=== PATIENT | male | born 1955 | race Caucasian/White ===

== ENCOUNTER 2017-08-19 20:09 | Emergency (ER) | payer OTHER ==
[~2017-08-19] VITALS: Ht 172.7 cm; Wt 105.8 kg
[~2017-08-19 20:09] MED LIST: CIPR-255 PO
[2017-08-19 20:14] VITALS: TEMP 36.9; Ht 172.7 cm; Wt 105.8 kg
[2017-08-19] MEDS ORDERED: CIPROFLOXACIN 500 MG TAB PO STA (20:29)
[2017-08-19] MEDS ORDERED: METRONIDAZOLE 250 MG TAB PO STA (20:29)
[2017-08-19 20:39] LABS: BASO % 0.5 %; BASO ABS # 0.06 K/uL (0-0.2); EOS % 1.7 %; HEMATOCRIT 45.7 % (42-52); HEMOGLOBIN 15.8 g/dL (14.0-18.0); IG# 0.08 K/uL (0.00-0.02); LYMPH % 18.1 %; LYMPH ABS # 2.17 K/uL (1.2-3.4); MEAN CELL VOLUME 88.6 fL (80-100); MEAN CORPUSCULAR HEMOGLOBIN 30.6 pg (25-34); MEAN CORPUSCULAR HGB CONC 34.6 g/dl (32-36); MEAN PLATELET VOLUME 9.6 fL (7.4-10.4); MONO % 8.4 %; MONO ABS # 1.01 K/uL (0.11-0.59); NEUT % 70.6 %; NEUT ABS # 8.46 K/uL (1.4-6.5); PLATELET COUNT 203 K/uL (130-400); RED CELL DISTRIBUTION WIDTH CV 13.1 % (11.5-14.5); WHITE BLOOD COUNT 11.98 K/uL (4.8-10.8)
[2017-08-19] MEDS ORDERED: CIPROFLOXACIN 500MG HOME PACK PO ONE (20:45)
--- NOTE | 2017-08-19 20:47 | EMERGENCY ROOM VISIT NOTE ---
History Report prepared by Kaiden: Crystal Slade Under the Supervision of: Dr. Jimmy Rodriguez M.D. First contact with patient: 20:23 Chief Complaint: ABDOMINAL PAIN Stated Complaint: DIVERTICULITIS History of Present Illness The patient is a 62 year old male who presents to the Emergency Room with complaints of worsening abdominal pain that began last night. The patient reports that he has diverticulitis and he ate corn. He is currently taking Cipro and Flagyl. Source of History: patient Onset: last night Position: abdomen Timing: worsening Review of Systems See HPI for pertinent positives & negatives. A total of 10 systems reviewed and were otherwise negative. Past Medical & Surgical Medical Problems: (1) Diverticulitis (2) Hypertension Family History Diabetes mellitus Social History Smoking Status: Never Smoker Alcohol Use: occasionally Marital Status: Housing Status: lives with family Occupation Status: retired Current/Historical Medications Scheduled Aspirin (Aspirin Ec), 81 MG PO QPM Atorvastatin (Lipitor), 10 MG PO Q2D Ciprofloxacin Hcl (Cipro), 1 TAB PO BID Docusate Sodium (Colace), 1 CAP PO BID Enalapril Maleate (Enalapril Maleate), 20 MG PO QPM Hydrochlorothiazide (Hydrochlorothiazide), 12.5 MG PO QPM Metronidazole (Flagyl), 500 MG PO TID Sennosides (Senokot), 8.6 MG PO HS Scheduled PRN Lorazepam (Ativan), 0.5 MG PO TID PRN for Anxiety Allergies Coded Allergies: No Known Allergies (Verified , 05/09/16) Physical Exam Vital Signs Date Time Temp Pulse Resp B/P (MAP) Pulse Ox O2 Delivery O2 Flow Rate FiO2 08/19/17 20:56 77 16 134/78 98 08/19/17 20:14 36.9 103 18 151/87 94 Room Air Physical Exam GENERAL: Patient is a healthy-appearing well-nourished male HEAD: Normocephalic atraumatic EYES: Ocular movements intact pupils equal and react to light OROPHARYNX mucous membranes are moist no exudates present no erythema or edema present NECK: Supple no nuchal rigidity CHEST: Good equal expansion LUNGS: Clear and equal to auscultation CARDIAC: Normal S1 and S2 ABDOMEN: No guarding. Minimally tender LLQ BACK: No CVA tenderness EXTREMITIES: No pain upon palpation normal muscle strength in all groups no clubbing cyanosis or edema NEURO: Patient is following commands and answering questions appropriately. Alert and oriented x3 Cranial Nerves 2-12 grossly intact Medical Decision & Procedures Laboratory Results 08/19/17 20:30 Red Blood Count 5.16, Mean Corpuscular Volume 88.6, Mean Corpuscular Hemoglobin 30.6, Mean Corpuscular Hemoglobin Concent 34.6, Mean Platelet Volume 9.6, Neutrophils (%) (Auto) 70.6, Lymphocytes (%) (Auto) 18.1, Monocytes (%) (Auto) 8.4, Eosinophils (%) (Auto) 1.7, Basophils (%) (Auto) 0.5, Neutrophils # (Auto) 8.46, Lymphocytes # (Auto) 2.17, Monocytes # (Auto) 1.01, Eosinophils # (Auto) 0.20, Basophils # (Auto) 0.06 08/19/17 20:30 Test 08/19/17 20:30 White Blood Count 11.98 K/uL (4.8-10.8) Red Blood Count 5.16 M/uL (4.7-6.1) Hemoglobin 15.8 g/dL (14.0-18.0) Hematocrit 45.7 % (42-52) Mean Corpuscular Volume 88.6 fL (80-100) Mean Corpuscular Hemoglobin 30.6 pg (25-34) Mean Corpuscular Hemoglobin Concent 34.6 g/dl (32-36) Platelet Count 203 K/uL (130-400) Mean Platelet Volume 9.6 fL (7.4-10.4) Neutrophils (%) (Auto) 70.6 % Lymphocytes (%) (Auto) 18.1 % Monocytes (%) (Auto) 8.4 % Eosinophils (%) (Auto) 1.7 % Basophils (%) (Auto) 0.5 % Neutrophils # (Auto) 8.46 K/uL (1.4-6.5) Lymphocytes # (Auto) 2.17 K/uL (1.2-3.4) Monocytes # (Auto) 1.01 K/uL (0.11-0.59) Eosinophils # (Auto) 0.20 K/uL (0-0.5) Basophils # (Auto) 0.06 K/uL (0-0.2) RDW Standard Deviation 42.0 fL (36.4-46.3) RDW Coefficient of Variation 13.1 % (11.5-14.5) Immature Granulocyte % (Auto) 0.7 % Immature Granulocyte # (Auto) 0.08 K/uL (0.00-0.02) Urine Color YELLOW Urine Appearance CLEAR (CLEAR) Urine pH 5.0 (4.5-7.5) Urine Specific [place] 1.021 (1.000-1.030) Urine Protein NEG (NEG) Urine Glucose (UA) NEG (NEG) Urine Ketones NEG (NEG) Urine Occult Blood TRACE (NEG) Urine Nitrite NEG (NEG) Urine Bilirubin NEG (NEG) Urine Urobilinogen NEG (NEG) Urine Leukocyte Esterase NEG (NEG) Urine WBC (Auto) 0 /hpf (0-5) Urine RBC (Auto) 0-4 /hpf (0-4) Urine Hyaline Casts (Auto) 0 /lpf (0-5) Urine Epithelial Cells (Auto) 0-5 /lpf (0-5) Urine Bacteria (Auto) NEG (NEG) Anion Gap 9.0 mmol/L (3-11) Est Creatinine Clear Calc Drug Dose 75.0 ml/min Estimated GFR () 73.7 Estimated GFR (Non- 63.6 BUN/Creatinine Ratio 12.4 (10-20) Calcium Level 9.1 mg/dl (8.5-10.1) Total Bilirubin 1.1 mg/dl (0.2-1) Direct Bilirubin 0.2 mg/dl (0-0.2) Aspartate Amino Transf (AST/SGOT) 33 U/L (15-37) Alanine Aminotransferase (ALT/SGPT) 76 U/L (12-78) Alkaline Phosphatase 58 U/L (45-117) Total Protein 7.3 gm/dl (6.4-8.2) Albumin 3.7 gm/dl (3.4-5.0) Lipase 212 U/L (73-393) Labs reviewed by ED physician. Medications Administered Medications (Trade) Dose Ordered Sig/Myron Route Start Time Stop Time Status Last Admin Dose Admin Ciprofloxacin (Cipro Tab) 500 mg NOW STAT PO 08/19/17 20:29 08/19/17 20:31 DC 08/19/17 20:40 500 MG Metronidazole (Flagyl Tab) 500 mg NOW STAT PO 08/19/17 20:29 08/19/17 20:31 DC 08/19/17 20:40 500 MG Ciprofloxacin (Cipro 500MG Home Pack) 1 homepack UD ONCE PO 08/19/17 20:45 08/19/17 20:46 DC 08/19/17 20:53 1 HOMEPACK ED Course 2025: Past medical records reviewed. The patient was evaluated in room C7. A complete history and physical examination was performed. 2028: Flagyl Tab 500 mg PO Cipro Tab 500 mg PO 2044: Cipro 500MG Home Pack 1 homepack PO 2105: Upon reexamination the patient is content. I discussed results and treatment plan with the patient. He verbalizes agreement and understanding. The patient is ready for discharge. Medical Decision Differential diagnosis: Etiologies such as appendicitis, diverticulitis, PUD, biliary pathology, UTI, pancreatitis, obstruction, mesenteric ischemia, aortic pathology, infections, inflammatory bowel disease, renal colic, as well as others were entertained. This is a 62-year-old male who presents emergency department complaining of left lower quadrant abdominal pain. Patient has a history of diverticulitis. Serial abdominal examinations were performed on the patient in the emergency department and the patient only had mild abdominal tenderness. The patient reports that this is is not his worst case of diverticulitis however this is what he feels that it is. Using shared medical decision making the decision was made not to CAT scan this patient. He will return for a CAT scan of his pain is out of control or he is running out of control fevers. 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 The patient was in agreement with the treatment plan. Medication Reconcilliation Current Medication List: was personally reviewed by me Blood Pressure Screening Patient's blood pressure: Elevated blood pressure Blood pressure disposition: Referred to PCP Impression Primary Impression: Diverticulitis Scribe Attestation The scribe's documentation has been prepared under my direction and personally reviewed by me in its entirety. I confirm that the note above accurately reflects all work, treatment, procedures, and medical decision making performed by me. Departure Information Dispostion Home / Self-Care Prescriptions Docusate Sodium (COLACE) 100 Mg Cap 1 CAP PO BID for 30 Days, #60 CAP Prov: Jimmy Rodriguez MD 08/19/17 Sennosides (SENOKOT) 8.6 Mg Tab 8.6 MG PO HS for 30 Days, #30 TAB Prov: Jimmy Rodriguez MD 08/19/17 Ciprofloxacin Hcl (CIPRO) 500 Mg Tab 1 TAB PO BID for 10 Days, #20 TAB Prov: Jimmy Rodriguez MD 08/19/17 Metronidazole (Flagyl) 500 Mg Tab 500 MG PO TID for 10 Days, #30 TAB Prov: Jimmy Rodriguez MD 08/19/17 Referrals No Doctor, Assigned (PCP) Forms Call Back Authorization, HOME CARE DOCUMENTATION FORM, IMPORTANT VISIT INFORMATION Patient Instructions My [facility] Additional Instructions You have been examined and treated today on an emergency basis only. This is not a substitute for, or an effort to provide, complete comprehensive medical care. It is impossible to recognize and treat all injuries or illnesses in a single emergency department visit. It is therefore important that you follow up closely with Dr Espinosa. Call as soon as possible for an appointment. Thank you for your time and consideration. I look forward to speaking with you again soon. Please don't hesitate to call us if you have any questions.
[2017-08-19] MEDS ORDERED: CIPR-255 PO (20:48)
[2017-08-19] MEDS ORDERED: METR-163 PO (20:48)
[2017-08-19] MEDS ORDERED: SENN1TAB77 PO (20:49)
[2017-08-19] MEDS ORDERED: DOCU-94 PO (20:49)
[2017-08-19 20:56] VITALS: BP 134/78; PULSE 77; O2SAT 98
[2017-08-19 21:05] LABS: ALBUMIN 3.7 gm/dl (3.4-5.0); CALCIUM 9.1 mg/dl (8.5-10.1); CREATININE 1.22 mg/dl (0.60-1.40); POTASSIUM 3.9 mmol/L (3.5-5.1)
[2017-08-19 21:08] LABS: TOTAL PROTEIN 7.3 gm/dl (6.4-8.2)
[2017-08-19] MEDS ORDERED: ENAL20TA PO (21:38)
[2017-08-19] MEDS ORDERED: ASPI81TA28 PO (21:44)
[2017-08-19] MEDS ORDERED: LORA-741 PO (21:44)
[2017-08-19] MEDS ORDERED: ATOR10TA82 PO (23:22)
[2017-08-19] MEDS ORDERED: HYDR12.55 PO (23:22)
== END 2017-08-19 20:57 | disposition home or self-care (01) ==
LOC: C.EDB 20:12 → C.EDC 20:57
DX: K57.92 Diverticulitis of intestine, part unspecified, without perforation or abscess without bleeding (principal); I10 Essential (primary) hypertension; Z83.3 Family history of diabetes mellitus; Z79.82 Long term (current) use of aspirin

== ENCOUNTER 2023-08-21 13:32 | Inpatient (IN) ==
--- NOTE | 2023-08-21 13:43 | ED Triage Note ---
Date of Service August 21, 2023 Provider in Triage Author: Alejandro Nuñez History of Present Illness This patient was briefly evaluated while in triage. An abbreviated physical exam was performed. This patient is a 68-year-old Male who presents to the ED for evaluation head cold last week, treated with antibiotic and predinsone continued congestion, weakness, weight loss, black stools no pain, no diarrhea Physical Exam GENERAL: NAD CARDIOVASCULAR: RRR RESPIRATORY: CTA ABDOMEN: BS x 4. Nontender to palpation. Initial orders for labs and / or imaging were placed and patient was placed in t he waiting area until a bed is available. Please see further documentation for the full ED course.
[2023-08-21 15:21] LABS: Basophils # (auto) 0.07 K/uL (0.00-0.20); Basophils % (auto) 0.5 %; Eosinophils # (auto) 0.06 K/uL (0.00-0.50); Eosinophils % (auto) 0.5 %; Hematocrit (blood only) 48.3 % (42.0-52.0); Hemoglobin 16.7 g/dl (14.0-18.0); Immature Granulocytes % (auto) 0.8 %; Lymphocytes # (auto) 1.71 K/uL (1.20-3.40); Mean Corpuscular Hemoglobin 28.8 pg (25.0-34.0); Mean Corpuscular Hgb Conc 34.6 g/dL (32.0-36.0); Mean Corpuscular Volume 83.3 fL (80.0-100.0); Mean Platelet Volume 10.6 fL (9.4-12.4); Monocytes % (auto) 6.1 %; Neutrophils # (auto) 10.41 K/uL (1.40-6.50); Neutrophils % (auto) 79.1 %; Platelet Count 253 K/uL (130-400); RDW Coefficient of Variation 12.5 % (11.5-14.5); RDW Standard Deviation 37.8 fL (36.4-46.3); White Blood Count 13.15 K/ul (4.8-10.8)
[2023-08-21 15:24] LABS: Appearance Urine Clear (Clear); Bilirubin Urine Negative (Negative); Blood Urine Negative (Negative); Color Urine Yellow; Glucose Urine UA 3+ (Negative); Ketones Urine Negative (Negative); Leukocyte Esterase Urine Negative (Negative); Nitrite Urine Negative (Negative); Protein Urine Negative (Negative); Specific Gravity Urine 1.033 (1.000-1.030); Urobilinogen Urine Negative (Negative)
[2023-08-21 15:46] LABS: Troponin I High Sensitivity 15.2 pg/ml (0-20)
[2023-08-21 15:48] LABS: Thyroid Stimulating Hormone 2.143 uIu/ml (0.300-4.500)
[2023-08-21 15:55] LABS: Albumin Level 4.2 gm/dl (3.4-5.0); Bilirubin,Total 1.9 mg/dl (0.2-1.0); Calcium 9.2 mg/dl (8.6-10.3); Creatinine Clr Calc Pharmacy 61.3 ml/min; Est GFR (African American) 63.7 ml/min; Est GFR (Non-African American) 54.9 ml/min; Potassium 4.3 mmol/L (3.5-5.1)
--- NOTE | 2023-08-21 16:09 | XRay Report ---
XR chest 1V not portable HISTORY: weakness COMPARISON: Chest 07/18/2014. FINDINGS: The lungs are clear. Cardiac silhouette is normal in size. No pleural effusions. No pneumot horax. IMPRESSION: No acute process. ACT 112: Negative or not required by law. Electronically signed by: Audi Severino M.D. 08/21/2023 4:08 PM
[2023-08-21] MEDS ORDERED: GLUCOSE 10 TAB/TUBE PO PRN (16:22)
[2023-08-21] MEDS ORDERED: GLUCOSE 40% GEL 15 GM TUBE PO PRN (16:22)
[2023-08-21] MEDS ORDERED: CARBOHYDRATES FOR HYPOGLYCEMIA PO PRN (16:22)
[2023-08-21] MEDS ORDERED: DEXTROSE 50% 50 ML SYRINGE IV PRN (16:22)
[2023-08-21] MEDS ORDERED: GLUCAGON FOR INJ 1 MG VIAL SQ PRN (16:22)
--- NOTE | 2023-08-21 16:28 | Emergency Department Note ---
Impression & Plan Acute hyperglycemia, Type 2 diabetes mellitus, Weakness, Acute hyponatremia ED Provider Note NAME: AMY CERNA AGE: 68 SEX: M : 1955 ARRIVES VIA: Walk-In INFORMANT: Patient ED PROVIDER(S): Keith Elliott DO CHIEF COMPLAINT: weak HPI: Patient is a 68-year-old male who presents to the ER with a past medical history of hypertension, hyperlipidemia on metformin for upper respiratory symptoms that initially started on Monday. On Monday started some steroids and amoxicillin. He notes since then he has been feeling very thirsty, weak rundown and lethargic. He denies any headache or change in vision. Does feel little unsteady. No chest pain or shortness of breath. No dysuria, urgency, or frequency. No other exacerbating or remitting factors. ADDITIONAL HISTORY OBTAINED: Per HPI Chronic Medical/Social Conditions Affecting Care: Per HPI PAST MEDICAL HISTORY:See Below PAST SURGICAL HISTORY:See Below FAMILY HISTORY:See Below SOCIAL HISTORY:See Below HOME MEDICATIONS:See Below ALLERGIES:See Below VITALS:See Below PHYSICAL EXAMINATION: GENERAL: Sitting up in bed, alert, well appearing, well nourished, no distress, non-toxic EYE EXAM: normal conjunctiva. PERRL and EOM's intact. OROPHARYNX: no exudate, no erythema, lips, buccal mucosa, and tongue normal and mucous membranes are moist NECK: supple, no nuchal rigidity, no adenopathy, non-tender LUNGS: Clear to auscultation. Normal chest wall mechanics HEART: no murmurs, S1 normal and S2 normal ABDOMEN: abdomen soft, non-tender, normo-active bowel sounds, no masses, no rebound or guarding. BACK: Back is symmetrical on inspection and there is no deformity, no midline tenderness, no CVA tenderness. SKIN: no rashes and no bruising UPPER EXTREMITIES: upper extremities are grossly normal. LOWER EXTREMITIES: No pitting edema. NEURO EXAM: Normal sensorium, cranial nerves II-XII intact, normal speech, no weakness of arms, no weakness of legs. MEDICAL DECISION MAKING: Patient is a 68-year-old male who presents the ER with above stated complaint. IV was established blood was obtained. Labs show mild leukocytosis of 13,000. No significant anemia. VBG with a pH of 7.45. BMP with a hyponatremia at 125 clearly secondary to the hyperglycemia at 776. There is no gap or acidosis. This is not consistent with DKA. T. bili slightly up at 1.9. LFTs were unremarkable. TSH was normal. Do favor this likely secondary to steroids. He was given IV fluids as well as placed on insulin drip for the severe hyperglycemia. UA was clean. Viral panel was negative. Patient was given IV fluids and on insulin drip was discussed with the hospitalist for further evaluation management treatment. Consults/Care Managements Discussions: Per [facility] Triage Nursing notes reviewed. Limited review of prior medical records performed Vital Signs: reviewed and remarkable for HTN and tachy Differential diagnosis: Infection, dehydration, metabolic abnormality, hypo/hyperglycemia, electrolyte disturbance, anemia, hypoxia, cardiac sources, intracerebral event, toxicologic, neurologic, as well as other pathologies. ER treatment provided: See below Diagnostics interpreted by me include EKG and cardiac monitoring as listed below: -Cardiac Monitoring: An order was placed for continuous cardiac monitoring. The monitor shows a rate of 101 with sinus rhythm. -ECG: Sinus rhythm rate 96 Left axis No PVCs QTc 447 -Laboratory studies:Interpreted by me as stated above in MDM and shown below. Imaging studies: Xrays: As interpreted by me: Portable AP upright 1 view chest shows no focal infiltrate CTs show: none Procedures:none Critical Care: I have personally spent 31 minutes of critical care time in the direct management of this patient. This includes bedside care, interpretation of diagnostic studies, and testing, discussion with consultants, patient, and family members, and other required patient management activities. This 31 minutes is in excess of all separately billable procedures. Past Med/Surg History Medical History (Updated 08/21/23 @ 22:21 by Keith Elliott DO) Diverticulitis Hypertension Social History Smoking Status: Never smoker Feels Safe at Home: Yes Allergies Allergies Allergy/AdvReac Type Severity Reaction Status Date / Time No Known Allergies Allergy Unknown Verified 05/09/16 23:20 Home Meds Home Medications Medication Instructions Recorded Confirmed amoxicillin 875 mg-potassium 1 tab PO .BID 10 DAYS 08/21/23 08/21/23 clavulanate 125 mg tablet aspirin 81 mg tablet,delayed 81 mg PO DAILY 08/21/23 08/21/23 release atorvastatin 20 mg tablet 20 mg PO DAILY 08/21/23 08/21/23 hydrochlorothiazide 12.5 mg tablet 12.5 mg PO DAILY 08/21/23 08/21/23 lisinopril 30 mg tablet 30 mg PO DAILY 08/21/23 08/21/23 metformin 500 mg tablet 500 mg PO BID 08/21/23 08/21/23 methylprednisolone 4 mg tablets in 4 mg PO DIRECTED 08/21/23 08/21/23 a dose pack Results & Data (ED) Vital Signs Vital Signs - 24 hr 08/21/23 13:42 08/21/23 17:06 08/21/23 17:06 Temperature 36.5 C Temperature Source Temporal Artery Scan Pulse Rate 106 H Pulse Rate [Apical] 89 Pulse Rhythm Regular Respiratory Rate 22 20 Respiratory Effort / Characteristics Non-Labored Spontaneous Respiratory Depth Normal Blood Pressure 167/121 H Blood Pressure [Left Arm] 164/100 H Blood Pressure Mean 136 Blood Pressure Mean [Left Arm] 121 Pulse Oximetry 95 96 95 Oxygen Delivery Method Room Air Room Air Room Air Sepsis Recent Fever Within 48 Hours No Sepsis New/Unexplained Change in Mental Status No Sepsis Action Taken by Nursing No Action Required Laboratory Data 08/21/23 14:51 08/21/23 14:51 Lab Results 08/21/23 08/21/23 08/21/23 Range/Units 14:27 14:29 14:33 WBC (4.8-10.8) K/ul RBC (4.70-6.10) M/uL Hgb (14.0-18.0) g/dl Hct (42.0-52.0) % MCV (80.0-100.0) fL MCH (25.0-34.0) pg MCHC (32.0-36.0) g/dL RDW Std Deviation (36.4-46.3) fL RDW Coeff of Cyndie (11.5-14.5) % Plt Count (130-400) K/uL MPV (9.4-12.4) fL Immature Gran % (Auto) % Neut % (Auto) % Lymph % (Auto) % [place] % (Auto) % Eos % (Auto) % Baso % (Auto) % Neut # (Auto) (1.40-6.50) K/uL Lymph # (Auto) (1.20-3.40) K/uL [place] # (Auto) (0.11-0.59) K/uL Eos # (Auto) (0.00-0.50) K/uL Baso # (Auto) (0.00-0.20) K/uL Immature Gran # (Auto) (0.01-0.20) K/uL Sodium (136-145) mmol/L Potassium (3.5-5.1) mmol/L Chloride (98-107) mmol/L Carbon Dioxide (21-32) mmol/L Anion Gap (3-11) BUN (6-23) mg/dl Creatinine (0.6-1.4) mg/dl Est Cr Clr Drug Dosing ml/min Est GFR ( Amer) ml/min Est GFR (Non-Af Amer) ml/min BUN/Creatinine Ratio (10-20) Glucose (70-99(Fasting)) mg/dl POC Glucose > 600 H* > 600 H* (70-99) mg/dl Estimat Average Glucose mg/dl Hemoglobin A1c (4.5-5.6) % Calcium (8.6-10.3) mg/dl Phosphorus (2.5-4.9) mg/dl Magnesium (1.7-2.4) mg/dl Total Bilirubin (0.2-1.0) mg/dl AST (13-39) U/L ALT (7-52) U/L Alkaline Phosphatase (34-104) U/L Troponin I High Sens (0-20) pg/ml Total Protein (6.0-8.3) gm/dl Albumin (3.4-5.0) gm/dl Globulin (2.5-4.0) gm/dl Albumin/Globulin Ratio (0.9-2) TSH (0.300-4.500) uIu/ml Urine Color Yellow Urine Appearance Clear (Clear) Urine pH 6.0 (4.5-7.5) Ur Specific [place] 1.033 H (1.000-1.030) Urine Protein Negative (Negative) Urine Glucose (UA) 3+ H (Negative) Urine Ketones Negative (Negative) Urine Blood Negative (Negative) Urine Nitrite Negative (Negative) Urine Bilirubin Negative (Negative) Urine Urobilinogen Negative (Negative) Ur Leukocyte Esterase Negative (Negative) 08/21/23 Range/Units 14:51 WBC 13.15 H (4.8-10.8) K/ul RBC 5.80 (4.70-6.10) M/uL Hgb 16.7 (14.0-18.0) g/dl Hct 48.3 (42.0-52.0) % MCV 83.3 (80.0-100.0) fL MCH 28.8 (25.0-34.0) pg MCHC 34.6 (32.0-36.0) g/dL RDW Std Deviation 37.8 (36.4-46.3) fL RDW Coeff of Cyndie 12.5 (11.5-14.5) % Plt Count 253 (130-400) K/uL MPV 10.6 (9.4-12.4) fL Immature Gran % (Auto) 0.8 % Neut % (Auto) 79.1 % Lymph % (Auto) 13.0 % [place] % (Auto) 6.1 % Eos % (Auto) 0.5 % Baso % (Auto) 0.5 % Neut # (Auto) 10.41 H (1.40-6.50) K/uL Lymph # (Auto) 1.71 (1.20-3.40) K/uL [place] # (Auto) 0.80 H (0.11-0.59) K/uL Eos # (Auto) 0.06 (0.00-0.50) K/uL Baso # (Auto) 0.07 (0.00-0.20) K/uL Immature Gran # (Auto) 0.10 (0.01-0.20) K/uL Sodium 125 L (136-145) mmol/L Potassium 4.3 (3.5-5.1) mmol/L Chloride 90 L (98-107) mmol/L Carbon Dioxide 24 (21-32) mmol/L Anion Gap 11 (3-11) BUN 29 H (6-23) mg/dl Creatinine 1.33 (0.6-1.4) mg/dl Est Cr Clr Drug Dosing 61.3 ml/min Est GFR ( Amer) 63.7 ml/min Est GFR (Non-Af Amer) 54.9 ml/min BUN/Creatinine Ratio 21.8 H (10-20) Glucose 776 H* (70-99(Fasting)) mg/dl POC Glucose (70-99) mg/dl Estimat Average Glucose 306 mg/dl Hemoglobin A1c 12.3 H (4.5-5.6) % Calcium 9.2 (8.6-10.3) mg/dl Phosphorus 3.5 (2.5-4.9) mg/dl Magnesium 2.1 (1.7-2.4) mg/dl Total Bilirubin 1.9 H (0.2-1.0) mg/dl AST 37 (13-39) U/L ALT 55 H (7-52) U/L Alkaline Phosphatase 79 (34-104) U/L Troponin I High Sens 15.2 (0-20) pg/ml Total Protein 7.0 (6.0-8.3) gm/dl Albumin 4.2 (3.4-5.0) gm/dl Globulin 2.8 (2.5-4.0) gm/dl Albumin/Globulin Ratio 1.5 (0.9-2) TSH 2.143 (0.300-4.500) uIu/ml Urine Color Urine Appearance (Clear) Urine pH (4.5-7.5) Ur Specific [place] (1.000-1.030) Urine Protein (Negative) Urine Glucose (UA) (Negative) Urine Ketones (Negative) Urine Blood (Negative) Urine Nitrite (Negative) Urine Bilirubin (Negative) Urine Urobilinogen (Negative) Ur Leukocyte Esterase (Negative) Administered Medications Insulin Human Regular 250 (units/ Sodium Chloride) 250 mls @ 2.4 mls/hr IV .Q24H [facility]; Protocol Stop: 09/20/23 16:29 Last Titration: 08/21/23 21:06 Dose: 2.4 units/hr, 2.4 mls/hr Documented By: RICHMOND Co-signed By: MOHAN Titration: 08/21/23 19:14 Dose: 3 units/hr, 3 mls/hr Documented By: MOHAN Co-signed By: RICHMOND Titration: 08/21/23 18:30 Dose: 0 units/hr, 0 mls/hr Documented By: ANTHONY Co-signed By: VLADIMIR Admin: 08/21/23 17:22 Dose: 5 units/hr, 5 mls/hr Documented By: VLADIMIR Co-signed By: ANTHONY Potassium Chloride/Dextrose/Sod Cl (D5w And 1/2nss + 20meq Kcl) 20 meq in 1,000 mls @ 200 mls/hr IV .Q5H ANEL Stop: 09/20/23 21:14 Last Admin: 08/21/23 21:32 Dose: 200 mls/hr Documented By: RICHMOND Discontinued Medications Parenteral Electrolytes (Plasma-Lyte A Ph 7.4) 2,000 mls @ 999 mls/hr IV .Q2H1M ONE Stop: 08/21/23 18:28 Last Infusion: 08/21/23 18:45 Dose: Infused Documented By: Admin: 08/21/23 17:07 Dose: 999 mls/hr Documented By: VLADIMIR Potassium Chloride/Sodium Chloride (1/2 Nss + 20meq Kcl 1000ml) 20 meq in 1,000 mls @ 200 mls/hr IV .Q5H ANEL Stop: 08/22/23 14:01 Last Infusion: 08/21/23 21:27 Dose: Infused Documented By: Admin: 08/21/23 18:52 Dose: 200 mls/hr Documented By: ANTHONY Miscellaneous (Stat Iv Infusion Titration Per Protocol) 1 each N/A NOW STA Stop: 08/21/23 16:23 Last Admin: 08/21/23 17:23 Dose: Not Given Documented By: VLADIMIR Imaging Data Radiologist's Impression: Chest X-Ray 08/21/23 13:46 XR chest 1V not portable HISTORY: weakness COMPARISON: Chest 07/18/2014. FINDINGS: The lungs are clear. Cardiac silhouette is normal in size. No pleural effusions. No pneumothorax. IMPRESSION: No acute process. ACT 112: Negative or not required by law. Electronically signed by: Audi Severino M.D. 08/21/2023 4:08 PM Discharge Plan Visit Data Chief Complaint: Illness Stated Complaint: losing weight, weakness ED Provider: Keith Elliott Discharge Problem: Acute hyperglycemia, Type 2 diabetes mellitus, Weakness, Acute hyponatremia Patient Disposition: Admitted As Inpatient Discharge Instructions Interventions: ED Discharge Assessment Last Done: 08/21/23 22:14 Discharge Problem: Type 2 diabetes mellitus Qualifiers: Diabetes mellitus exterminator helper termite insulin use: unspecified exterminator helper termite insulin use status Diabetes mellitus complication status: with other specified complication Qualified Code(s): E11.69 - Type 2 diabetes mellitus with other specified complication
--- NOTE | 2023-08-21 16:38 | History & Physical Report ---
Date of Service August 21, 2023 Assessment & Plan (1) Hyperosmolar hyperglycemic state (HHS): Plan: Worsening weakness, cough, congestion, and weight loss x 1 week Patient was placed on amoxicillin and prednisone taper outpatient on 08/15 COVID, flu, RSV ordered, pending CXR NAF Leukocytosis at 13.15 with a neutrophil predominance Glucose 776 on arrival; in the setting of recent illness and steroid use Per patient, no hx of DKA Anion gap WNL at 11 UA positive 3+ for glucose; negative for ketones K 4.3 on arrival; start potassium supplementation w/ IVF HHS Protocol BSG checks q1h Communication order: Once glucose <350, switch to D5 07/11 NSS + 20mEq K Magnesium WNL Trend BMP, VBG, Mag, Phos q4h EKG revealed NSR at 96 bpm; QTc 447 A.m. CBC (2) Type 2 diabetes mellitus: Plan: A1c at 12.3% on 08/21/2023 Insulin drip started in the ED Hold metformin; patient reports that he is supposed to be taking it twice daily, but normally only takes it once per day N.p.o. for now then advance to T2DM diet as tolerated Adjust regimen as needed Pharmacy glycemic consult (3) Hyponatremia: Plan: Na 125 on arrival Continue IVF resuscitation Avoid overcorrect; goal 4-6mEq/L over 24h Trend BMP q4h (as above) (4) Hypercholesterolemia: Plan: Continue atorvastatin (5) Hypertension: Plan: Continue hydrochlorothiazide, lisinopril (6) Melena: Plan: Patient reports dark, tarry stool; note: melena started 1 day after starting Augmentin; patient also takes metformin for diabetes Fecal occult blood ordered, pending Plan Disposition: Obs -admit to PCU DNR/DNI T2DM diet once glucose corrects VTE PPx: Lovenox 40 mg SQ q24h History of Present Illness Chief Complaint: Illness, hyperglycemia Primary Care Provider: NO PCP Brian is a pleasant 68-year-old male with PMH of hypercholesterolemia, diverticulitis, and HTN. Patient presented for worsening congestion, weight loss, and generalized weakness x 1 week. Patient was placed on Augmentin and a prednisone taper outpatient on 08/15/2023 for cold-like symptoms, productive cough, and congestion. He notes that he has lost around 30 pounds over the past week, and that his wedding ring slipping off. He notes the cough has persisted, and and that he has loss of appetite, as well as dark tarry stools that started the day after he started Augmentin. Patient is supposed to take metformin twice daily for his diabetes, but notes that he only takes it once per day. He did not take any of his regular medications this morning, and reports that he usually likes to take it at night. He reports a recent loss of appetite. He denies recent alcohol use within the past 3 weeks. He endorses tobacco use, but denies smoking tobacco. He reports that his recent around sick contacts at [facility], and that he lives with his 2 granddaughters who are sometimes sick. He denies a history of DKA. He last took prednisone the evening of 08/20 before coming into the ED. He has been taking the amoxicillin as prescribed. Patient is hypertensive at 164/100 at time of admission; vitals otherwise stable. ED course: Insulin drip Plasma-Lyte 2000 mL IV ROS: Patient endorses generalize weakness, loss of appetite, blurry vision, sore throat, productive cough, sinus congestion, dark/tarry stool (which started the day after starting aumentin), and weight loss over the last week. Patient denies fever, chills, nightsweats, dizziness, lightheadedness, headaches, chest pain, SOB, chest palpitations, pleuritic CP, hemoptysis, a bdominal pain, N/V/D, burning with urination, blood in stool or urine, or numbness/tingling in arms or legs. Allergies Allergy/AdvReac Type Severity Reaction Status Date / Time No Known Allergies Allergy Unknown Verified 05/09/16 23:20 Home Medications Medication Instructions Recorded Confirmed Type amoxicillin 875 mg-potassium 1 tab PO .BID 10 DAYS 08/21/23 08/21/23 History clavulanate 125 mg tablet aspirin 81 mg tablet,delayed 81 mg PO DAILY 08/21/23 08/21/23 History release atorvastatin 20 mg tablet 20 mg PO DAILY 08/21/23 08/21/23 History hydrochlorothiazide 12.5 mg tablet 12.5 mg PO DAILY 08/21/23 08/21/23 History lisinopril 30 mg tablet 30 mg PO DAILY 08/21/23 08/21/23 History metformin 500 mg tablet 500 mg PO BID 08/21/23 08/21/23 History methylprednisolone 4 mg tablets in 4 mg PO DIRECTED 08/21/23 08/21/23 History a dose pack Past Med/Surg History Medical History (Updated 08/21/23 @ 22:21 by Keith Elliott DO) Diverticulitis Hypertension Social History Smoking Status: Never smoker Tobacco Type: Smokeless Tobacco (Dip or Chew) Do You Dip or Chew Tobacco: Yes; Hx Alcohol Use: Yes Alcohol type: beer Hx Substance Use: No Preferred Language: Scottish Communication Ability: Effective Pharmacy General Manager Required: No Beliefs That Will Affect Care: None Current Living Situation: Spouse Current Living Situation Comment: with Alethea Other Information That Helps Us Care for You: No Feels Safe at Home: Yes Safety Concerns: Feels Safe At This Time Assistive Devices: None Review of Systems Review of Systems: See HPI above Physical Exam Physical Exam: General: no acute distress; pleasant affect; non-toxic appearing; well- nourished; cooperative HEENT: normocephalic, atraumatic; no scleral icterus; PERRLA w/ EOMs intact; moist mucus membrane; vision and hearing grossly intact Neck: supple; no JVD; no lymphadenopathy; trachea midline Skin: warm, dry without signs of tenting; no cyanosis; no rashes, bruising, lesions, or erythema noted CV: chest wall NTP; RRR; S1/S2 normal; no murmurs/rubs/gallops; pulses intact and symmetric at radial, DP, and PT Lungs: no acute respiratory distress; symmetrical chest wall expansion; clear breath sounds across all lung truj[place] w/o adventitious sounds; no wheezing ABD: Soft, NTP; BS present; no rebound/guarding; mild distention secondary to body habitus; no rashes or bruising on abdomen noted MSK: no tics or fasciculations; no edema noted in the LEs b/l, nonerythematous Neuro: A&Ox3; normal mood and affect; fluent speech; sensation grossly intact in the LEs b/l Results & Data Results & Data Vital Signs (Past 12 Hours) Vital Signs Temp Pulse Resp BP Pulse Ox O2 Del Method 08/21/23 13:42 36.5 C 106 H 22 167/121 H 95 Room Air Laboratory Results Abnormal lab results 08/21/23 08/21/23 08/21/23 Range/Units 14:27 14:29 14:33 WBC (4.8-10.8) K/ul Neut # (Auto) (1.40-6.50) K/uL [place] # (Auto) (0.11-0.59) K/uL Sodium (136-145) mmol/L Chloride (98-107) mmol/L BUN (6-23) mg/dl BUN/Creatinine Ratio (10-20) Glucose (70-99(Fasting)) mg/dl POC Glucose > 600 H* > 600 H* (70-99) mg/dl Total Bilirubin (0.2-1.0) mg/dl ALT (7-52) U/L Ur Specific [place] 1.033 H (1.000-1.030) Urine Glucose (UA) 3+ H (Negative) 08/21/23 Range/Units 14:51 WBC 13.15 H (4.8-10.8) K/ul Neut # (Auto) 10.41 H (1.40-6.50) K/uL [place] # (Auto) 0.80 H (0.11-0.59) K/uL Sodium 125 L (136-145) mmol/L Chloride 90 L (98-107) mmol/L BUN 29 H (6-23) mg/dl BUN/Creatinine Ratio 21.8 H (10-20) Glucose 776 H* (70-99(Fasting)) mg/dl POC Glucose (70-99) mg/dl Total Bilirubin 1.9 H (0.2-1.0) mg/dl ALT 55 H (7-52) U/L Ur Specific [place] (1.000-1.030) Urine Glucose (UA) (Negative) Diagnostic Findings Chest X-Ray 08/21/23 13:46 XR chest 1V not portable HISTORY: weakness COMPARISON: Chest 07/18/2014. FINDINGS: The lungs are clear. Cardiac silhouette is normal in size. No pleural effusions. No pneumothorax. IMPRESSION: No acute process. ACT 112: Negative or not required by law. Electronically signed by: Audi Severino M.D. 08/21/2023 4:08 PM Code Status & VTE Plan Code Status DNR/DNI VTE Prophylaxis Plan VTE Prophylaxis will be ordered: Yes Supervising Physician Co-Signing Physician Notes I personally saw and examined the patient. I verified all nash points and agree with Jimmy Tate PA-C with the following exceptions and/or additions: PG Care Time/CCT Total # of Minutes Spent Total Time Spent with Patient: Total time spent is greater than 50% in coordination of care (as documented) at patient's floor/unit and/or counseling patient: [place] [address] INT INP/OBS CARE 3/75MIN Patient Type New Medical Decision Making High Complexity Diagnoses Hyperosmolar hyperglycemic state (HHS) E11.00 Type 2 diabetes mellitus E11.9 Hyponatremia E87.1 Hypercholesterolemia E78.00 Hypertension I10 Melena K92.1
[2023-08-21 16:47] LABS: Albumin Globulin Ratio 1.5 (0.9-2); BUN Creatinine Ratio 21.8 (10-20); Globulin 2.8 gm/dl (2.5-4.0)
[2023-08-21 16:48] LABS: Magnesium 2.1 mg/dl (1.7-2.4); Phosphorus 3.5 mg/dl (2.5-4.9)
[2023-08-21] MEDS: PLASMA-LYTE A 2,000 ML IV ONE (17:07)
[2023-08-21] MEDS: INSULIN REGULAR 250 UNITS in SODIUM CHLORIDE 0.9% 247.5 ML IV SCH (17:22)
[2023-08-21] MEDS: STAT IV Infusion **Titration per Protocol STA (17:23)
[2023-08-21] MEDS ORDERED: INSULIN ASPART PER UNIT CHARGE SC SCH (18:00)
[2023-08-21] MEDS ORDERED: PHARMACY GLYCEMIC MGMT CONSULT PRN (18:07)
[2023-08-21] MEDS ORDERED: HHS GOAL RANGE 250-350 mg/dl ONE (18:07)
[2023-08-21 18:39] LABS: Estimated Average Glucose 306 mg/dl; Hemoglobin A1C 12.3 % (4.5-5.6)
[2023-08-21 18:44] LABS: Influenza A virus by PCR Negative (Neg); Influenza B virus by PCR Negative (Neg); RSV by PCR Negative (Neg); SARS CoV2 RNA(COVID-19) Ceph NEGATIVE (Negative)
[2023-08-21] MEDS: SODIUM CHLOR 0.45% + 20MEQ KCL 20 MEQ/1,000 ML BAG IV SCH ×2 (18:52→23:56)
--- OUTSIDE RECORDS SUMMARY | 2023-08-21 21:25 | External Medical Summary ---
Continuity of Care Document (CCD) Created on: August 17, 2023 Brian Cabrera External Reference #: [id number] : 1955 Sex: Male Author Name Unknown Organization [place] Address [address] [place] [address] Phone [phone] Problems Active Problems Provider Date Essential hypertension Scar Jones PA-C O nset: 04/15/2019 Mixed hyperlipidemia Scar Jones PA-C Ons et: 04/15/2019 Generalized anxiety disorder Scar Jones PA-C Onset: 04/15/2019 Diverticulitis of colon Scar Jones PA-C Onset: 04/15/2019 Injury of lower leg Scar Jones PA-C Onse t: 08/02/2019 Epidermoid cyst Scar Jones PA-C Onset: 0 08/22/2019 Acute maxillary sinusitis JENIFER Morales Onset: 08/22/2019 Social History Type Date Description Comments Sex Unknown Tobacco Use Reviewed: 03/24/22 Never Smoked Cigarette s Tobacco Use Reviewed: 03/24/22 Never Smoked Cigars Tobacco Use Reviewed: 03/24/22 Never Smoked A Pipe Smoking Status Reviewed: 02/14/23 Never Smoked A Pipe Smokeless Tobacco 09/28/2021 Current Smokel ess Tobacco User, Uses 10 Times Daily Smokeless Tobacco 03/24/2022 Current Smokel ess Tobacco User, Uses 10 Times Daily ETOH Use Occasionally consumes alcoho l Recreational Drug Use Denies Drug Use Allergies and adverse reactions Description No Known Drug Allergies Medications Active Medications SIG Qnty Indications Order ing Provider Date Nmldsd9ps TBPK use as directed 21units Dakota Phillips MD 08/15/2023 - 08/22/2023 Amoxicillin/Clavulana te [id number] Tablets one by mouth twice a day x 10 days 20tabs Kaia Carpenter MD 08/15/2023 - 08/25/2023 Metformin BIS984ab Tablets Take 1 tablet by mouth twice daily 180tabs E11.9 Kaia Carpenter MD 11/09/2020 Bpppshtkrd92py Tablets one tablet daily 90tabs I10 Kaia Carpenter MD 08/26/2020 Vedamgvjqxavsourlor05 .5mg Tablets 1 by mouth every day 90tabs I10 Kaia Carpenter MD 08/26/[address] 1 by mouth every day Unknown Atorvastatin Omziniu03eo Tablets take 1 tablet by mouth once daily 90tabs Kaia Carpenter MD Medications Administered in Office Medication SIG Qnty Indications Ordering Provider Date Injection Kenalog 10 MG [facility] [id number] Greg Morales 03/11/2020 Immunizations CPT Code Status Date Vaccine Lot # [id number] Refused 11/18/2020 Moderna Sars-Co v-2 (Cov-19) vacc,100 mcg/ 0.5 mL 12Y+EMR Doc Only [id number] Refused 11/18/2020 Moderna Sars-Co v-2 (Cov-19) vacc,100 mcg/ 0.5 mL 12Y+EMR Doc Only [id number] Refused 08/26/2020 Shingrix [id number] Refused 08/26/2020 Tdap (Tetanus, diphtheria & acel. pertussis) Adacel or Boostrix [id number] Refused 08/26/2020 Influenza Virus Vaccine, Quad, Preserv Free, 6Mon And Up Vital Signs Date Vital Result Comment 08/17/2023 8:10am BP Systolic 134 mmHg BP Diastolic 78 mmHg Body Temperature 98.1 F Heart Rate 78 /min Respiratory Rate 20 /min Weight 246.00 lb Weight 111.586 kg 02/14/2023 8:07am BP Systolic 124 mmHg BP Diastolic 86 mmHg Body Temperature 97.5 F Heart Rate 76 /min Respiratory Rate 14 /min Weight 252.00 lb Weight 114.307 kg Height 68 inches 5'8" BMI (Body Mass Index) 38.3 kg/m2 O2 % BldC Oximetry 98 % [place] Body Weight 154 lb Procedures Date Code Description Status 08/17/2023 G2012 Phone Evaluation/Management By Physician 21-30 Min Completed 02/16/2010 [id number] Colonoscopy Completed Medical Devices Description No Information Available Encounters Type Date Location Provider Dx Diagnosis Office Visit 08/17/2023 8:00a [place] Scar Jones PA-C I10 Essential (primary) hypertension E78.2 Mixed hyperlipidemia E11.9 Type 2 diabetes natalie itus without complications Assessments Date Code Description Provider 08/17/2023 I10 Essential (primary) hyperten bernadine Scar Jones PA-C 08/17/2023 E78.2 Mixed hyperlipidemia Scar Jones PA-C 08/17/2023 E11.9 Type 2 diabetes mellitus without complications Scar Jones PA-C Plan of Treatment Future Appointment(s):* 02/08/2024 8:00 am - [place] * 02/15/2024 8:00 am - Scar Jones PA-C at [place] 08/17/2023 - Scar Jones PA-C* I10 Essential (primary) hypertension* New Labs:* CBC W/Diff, Scheduled: 02/08/24 * Comp. Met, Scheduled: 02/08/24 * Lipid, Scheduled: 02/08/24 * TSH, Scheduled: 02/08/24 * Urinalysis,Cult If Indicated, Scheduled: 02/08/24 * Hba1c, Scheduled: 02/08/24 * Psa2, Scheduled: 02/08/24 * Comments:* Continue current medication Low-sodium diet Blood pressure stable Patient verbalizesunderstanding of care plan / instructions. * Recommendations:* Low-salt diet. Exercise. Continue medication as directed. * E78.2 Mixed hyperlipidemia* New Labs:* CBC W/Diff, Scheduled: 02/08/24 * Comp. Met, Scheduled: 02/08/24 * Lipid, Scheduled: 02/08/24 * TSH, Scheduled: 02/08/24 * Urinalysis,Cult If Indicated, Scheduled: 02/08/24 * Hba1c, Scheduled: 02/08/24 * Psa2, Scheduled: 02/08/24 * Comments:* Continue current medication. Repeat labs prior to next visit * Recommendations:* Low-fat, low-cholesterol diet. Exercise. * E11.9 Type 2 diabetes mellitus without complications* Comments:* Diet and exercise plan discussed Increase exercise program discussed. Continue meds as advised * Recommendations:* Follow diabetic diet. Continue medications as prescribed. Functional Status Description No Information Available Mental Status Description No Information Available Referrals Description No Information Available
--- OUTSIDE RECORDS SUMMARY | 2023-08-21 21:25 | External Medical Summary | Continuity of Care Document ---
Author Name Unknown Organization [place] Address [address] [place] [address] Phone [phone] Problems Active Problems Provider Date Essential hypertension [...] SIG Qnty Indications Order ing Provider Date Odgzik5kd TBPK use as directed 21units Dakota Phillips MD 08/15/2023 - 08/22/2023 Amoxicillin/Clavulana te Jfzgwvhoy639-922dr Tablets one by mouth twice a day x 10 days 20tabs Kaia Carpenter MD 08/15/2023 - 08/25/2023 Metformin CNP141jo Tablets Take 1 tablet by mouth twice daily 180tabs E11.9 Kaia Carpenter MD 11/09/2020 Ogrvrizoxy08pe Tablets one tablet daily 90tabs I10 Kaia Carpenter MD 08/26/2020 Xqqgsdhdiularbldohg18 .5mg Tablets 1 by mouth every day 90tabs I10 Kaia Carpenter MD 08/26/[address] 1 by mouth every day Unknown Atorvastatin Efgrrmm21jx Tablets take 1 tablet by mouth once daily 90tabs Kaia Carpenter MD Medications Administered in Office Medication SIG Qnty Indications Ordering Provider Date Injection Kenalog 10 MG [facility] [id number] Greg Morales 03/11/2020 Immunizations CPT Code Status Date Vaccine Lot # [id number] Refused 11/18/2020 Moderna Sars-Co v-2 (Cov-19) vacc,100 mcg/ 0.5 mL 12Y+EMR Doc Only [id number] Refused 11/18/2020 Moderna Sars-Co v-2 (Cov-19) vacc,100 mcg/ 0.5 mL 12Y+EMR Doc Only [id number] Refused 08/26/2020 Shingrix [id number] Refused 08/26/2020 Tdap (Tetanus, diphtheria & acel. pertussis) Adacel or Boostrix 60916 Refused 08/26/2020 Influenza Virus Vaccine, Quad, Preserv [...] kg/m2 O2 % BldC Oximetry 98 % [place] Body Weight 154 lb Procedures Date Code Description Status 08/17/2023 G2012 Phone Evaluation/Management By Physician 21-30 Min Completed 02/16/2010 [id number] Colonoscopy Completed Medical Devices Description No Information Available Encounters Type Date Location Provider Dx Diagnosis Office Visit 08/17/2023 8:00a [place] Scar Jones PA-C I10 Essential (primary) hypertension E78.2 Mixed hyperlipidemia E11.9 Type 2 diabetes natalie itus without complications Assessments Date Code Description Provider 08/17/2023 I10 Essential (primary) hyperten bernadine Scar Jones PA-C 08/17/2023 E78.2 Mixed hyperlipidemia Scar Jones PA-C 08/17/2023 E11.9 Type 2 diabetes mellitus without complications Scar Jones PA-C Plan of Treatment Future Appointment(s):* 02/08/2024 8:00 am - [place] * 02/15/2024 8:00 am - Scar Jones PA-C at [place] 08/17/2023 - Scar Jones PA-C* I10 Essential [...]
[2023-08-21] MEDS: D5W AND 1/2NSS + 20MEQ KCL 20 MEQ/1,000 ML BAG IV SCH (21:32)
[2023-08-21] MEDS ORDERED: ACETAMINOPHEN 325 MG TAB PO PRN (22:15)
[2023-08-21] MEDS ORDERED: ONDANSETRON INJ 2 MG/ML 2 ML VIAL IV PRN (22:15)
[2023-08-21 22:20] LABS: BUN Creatinine Ratio 23.1 (10-20); Calcium 8.3 mg/dl (8.6-10.3); Creatinine Clr Calc Pharmacy 89.6 ml/min; Est GFR (African American) 100.7 ml/min; Est GFR (Non-African American) 86.9 ml/min; Magnesium 2.1 mg/dl (1.7-2.4); Phosphorus 2.1 mg/dl (2.5-4.9)
[2023-08-21] MEDS: INSULIN ASPART PER UNIT CHARGE SC SCH (23:14)
[2023-08-21] MEDS: ASPIRIN 81 MG ECTAB PO SCH (23:55)
[2023-08-21] MEDS: ATORVASTATIN 20 MG TAB PO SCH (23:55)
[2023-08-21] MEDS: ENOXAPARIN INJ 40 MG/0.4 ML SYR SQ SCH (23:56)
[2023-08-21] MEDS: hydroCHLOROthiazide 25 MG TAB PO SCH (23:56)
[2023-08-22 01:55] LABS: Calcium 8.3 mg/dl (8.6-10.3); Creatinine Clr Calc Pharmacy 85.8 ml/min; Est GFR (African American) 95.6 ml/min; Est GFR (Non-African American) 82.5 ml/min; Phosphorus 2.2 mg/dl (2.5-4.9); Potassium 3.7 mmol/L (3.5-5.1)
--- OUTSIDE RECORDS SUMMARY | 2023-08-22 04:29 | External Medical Summary | Continuity of Care Document ---
Author Name Unknown Organization [place] Address [address] [place] [address] Phone [phone] Problems Active Problems Provider Date Essential hypertension [...] SIG Qnty Indications Order ing Provider Date Ydwxrl1wk TBPK use as directed 21units Dakota Phillips MD 08/15/2023 - 08/22/2023 Amoxicillin/Clavulana te Uwklyrifx090-360vm Tablets one by mouth twice a day x 10 days 20tabs Kaia Carpenter MD 08/15/2023 - 08/25/2023 Metformin RAL141xs Tablets Take 1 tablet by mouth twice daily 180tabs E11.9 Kaia Carpenter MD 11/09/2020 Qtyuivflwg47rt Tablets one tablet daily 90tabs I10 Kaia Carpenter MD 08/26/2020 Kmptmsscjflpcecozom41 .5mg Tablets 1 by mouth every day 90tabs I10 Kaia Carpenter MD 08/26/[address] 1 by mouth every day Unknown Atorvastatin Zhaqacs91za Tablets take 1 tablet by mouth once daily 90tabs Kaia Carpenter MD Medications Administered in Office Medication SIG Qnty Indications Ordering Provider Date Injection Kenalog 10 MG [facility] [id number] Greg Morales 03/11/2020 Immunizations CPT Code Status Date Vaccine Lot # [id number] Refused 11/18/2020 Moderna Sars-Co v-2 (Cov-19) vacc,100 mcg/ 0.5 mL 12Y+EMR Doc Only [id number] Refused 11/18/2020 Moderna Sars-Co v-2 (Cov-19) vacc,100 mcg/ 0.5 mL 12Y+EMR Doc Only [id number] Refused 08/26/2020 Shingrix [id number] Refused 08/26/2020 Tdap (Tetanus, diphtheria & acel. pertussis) Adacel or Boostrix 26933 Refused 08/26/2020 Influenza Virus Vaccine, Quad, Preserv [...] kg/m2 O2 % BldC Oximetry 98 % [place] Body Weight 154 lb Procedures Date Code Description Status 08/17/2023 G2012 Phone Evaluation/Management By Physician 21-30 Min Completed 02/16/2010 [id number] Colonoscopy Completed Medical Devices Description No Information Available Encounters Type Date Location Provider Dx Diagnosis Office Visit 08/17/2023 8:00a [place] Scar Jones PA-C I10 Essential (primary) hypertension E78.2 Mixed hyperlipidemia E11.9 Type 2 diabetes natalie itus without complications Assessments Date Code Description Provider 08/17/2023 I10 Essential (primary) hyperten bernadine Scar Jones PA-C 08/17/2023 E78.2 Mixed hyperlipidemia Scar Jones PA-C 08/17/2023 E11.9 Type 2 diabetes mellitus without complications Scar Jones PA-C Plan of Treatment Future Appointment(s):* 02/08/2024 8:00 am - [place] * 02/15/2024 8:00 am - Scar Jones PA-C at [place] 08/17/2023 - Scar Jones PA-C* I10 Essential [...]
[2023-08-22 05:07] LABS: Basophils # (auto) 0.07 K/uL (0.00-0.20); Basophils % (auto) 0.6 %; Eosinophils # (auto) 0.22 K/uL (0.00-0.50); Eosinophils % (auto) 1.8 %; Hematocrit (blood only) 43.4 % (42.0-52.0); Hemoglobin 15.1 g/dl (14.0-18.0); Immature Granulocytes % (auto) 0.8 %; Lymphocytes # (auto) 3.05 K/uL (1.20-3.40); Lymphocytes % (auto) 25.2 %; Mean Corpuscular Hemoglobin 28.9 pg (25.0-34.0); Mean Corpuscular Hgb Conc 34.8 g/dL (32.0-36.0); Mean Corpuscular Volume 83.1 fL (80.0-100.0); Mean Platelet Volume 11.7 fL (9.4-12.4); Monocytes # (auto) 0.74 K/uL (0.11-0.59); Monocytes % (auto) 6.1 %; Neutrophils # (auto) 7.92 K/uL (1.40-6.50); Neutrophils % (auto) 65.5 %; Platelet Count 170 K/uL (130-400); RDW Coefficient of Variation 12.6 % (11.5-14.5); Red Blood Count 5.22 M/uL (4.70-6.10)
[2023-08-22 05:25] LABS: BUN Creatinine Ratio 20.7 (10-20); Calcium 8.2 mg/dl (8.6-10.3); Creatinine Clr Calc Pharmacy 99.5 ml/min; Est GFR (African American) 106.1 ml/min; Est GFR (Non-African American) 91.5 ml/min; Magnesium 1.9 mg/dl (1.7-2.4); Phosphorus 2.1 mg/dl (2.5-4.9); Potassium 3.6 mmol/L (3.5-5.1)
[2023-08-22] MEDS: PENDING D5 1/2NS+20mEq KCL IVF SCH (08:59)
[2023-08-22 09:21] LABS: BUN Creatinine Ratio 17.6 (10-20); Calcium 8.3 mg/dl (8.6-10.3); Est GFR (African American) 104.5 ml/min; Est GFR (Non-African American) 90.2 ml/min; Magnesium 1.9 mg/dl (1.7-2.4); Potassium 3.9 mmol/L (3.5-5.1)
--- NOTE | 2023-08-22 09:26 | Pharmacy Report ---
Pharmacy Glycemic Short Note 2 - Date of Service August 22, 2023 - Glycemic Short BSG Results (Last 24 hours): 08/21/23 08/21/23 08/21/23 14:29 14:33 14:51 Glucose 776 H* POC Glucose > 600 H* > 600 H* 08/21/23 08/21/23 08/21/23 18:31 19:09 20:04 Glucose POC Glucose 378 H* 371 H* 356 H* 08/21/23 08/21/23 08/21/23 21:03 21:13 22:14 Glucose 325 H* POC Glucose 296 H 353 H* 08/21/23 08/22/23 08/22/23 23:04 00:03 00:34 Glucose 304 H* POC Glucose 318 H* 338 H* 08/22/23 08/22/23 08/22/23 01:05 02:03 03:04 Glucose POC Glucose 279 H 248 H 225 H 08/22/23 08/22/23 08/22/23 03:56 04:57 08:53 Glucose 240 H POC Glucose 201 H 175 H OUTPATIENT ANTIDIABETIC REGIMEN: * metformin 500 mg bid (patient only takes once daily per notes) ASSESSMENT: * 68 year old male admitted with HHS - started on insulin infusion per protocol. BSGs improving more this AM, labs improved. Reasonable to trial SQ insulin this AM. Insulin drip running at 2.9 units/hr, anticipate rate to further decrease with next check. Fluids with no dextrose, NPO status still. Discussed with RN and patient feeling well this morning, ready to leave. Anticipate diet to be ordered. * Will give Lantus 38 units x 1 now to be given with insulin drip. (full weight based stress of 2 dosing) Will plan to overlap with insulin drip ~4 hours and will consider d/c insulin drip if BSGs stable PLAN FOR INPATIENT GLYCEMIC CONTROL: * Hold outpatient oral diabetes medications * Basal insulin * Lantus 38 units x 1 now ( to overlap with insulin drip ) * Bolus insulin - to be started after insulin drip d/c * NovoLog per scale ACHS or Q6hrs while NPO * Goal Range: Low 110 mg/dL - High 140 mg/dL * Correction Factor: 15 mg/dL/unit * Nutritional / Prandial insulin per carb ratio of 1 unit per 5 grams CHO consumed
[2023-08-22] MEDS: LANTUS PER UNIT CHARGE SC ONE ×2 (09:29→17:10)
[2023-08-22] MEDS: POT PHOSPHATE MONOBASIC W/ SOD TAB PO SCH (11:13)
[2023-08-22] MEDS: lisinopril 10 MG TAB PO SCH (11:14)
--- NOTE | 2023-08-22 12:19 | Hospitalist Progress Note ---
Date of Service August 22, 2023 Assessment & Plan (1) Hyperosmolar hyperglycemic state (HHS): Plan: resolved with insulin infusion, IV fluids, supportive care weaning off insulin infusion transitioning to basal-bolus SC regimen appreciate pharmacy glycemic team recs appreciate staff educator consult & recs labs are nearly normal this afternoon - stop serial BMPs/mag/phos/pH can d/c IV fluids this afternoon - appears hydrated, diet has been started a1c noted (12.3%) follow BSGs overnight (2) Type 2 diabetes mellitus: Plan: uncontrolled A1c 12.3% does not check BSGs at home this will be vital for him to get his DM under better control strongly consider DM clinic f/u post-discharge I corresponded with Kalee from the diabetes team - plan lantus daily + metformin at discharge with close PCP f/u (+/- DM clinic) (3) Hyponatremia: Plan: Na 125 at presentation 134 today improved s/p isotonic fluids can stop IV fluids HCTZ chronically may also be contributing to low Na BMP am (4) Hypercholesterolemia: Plan: Continue atorvastatin (5) Hypertension: Plan: Continue hydrochlorothiazide, lisinopril (6) Melena: Plan: pt reported such at admission, but H/H stable no stool thus far to perform fecal occult will do so once he has a stool (7) URI (upper respiratory infection): Plan: recent URI treated with abx/steroids stop both symptomatic care / supportive care (8) Morbid obesity with BMI of 40.0-44.9, adult: Plan: BMI ~40 (9) Hypophosphatemia: Plan: start k-phos neutral 1 cap QID Plan VTE PPx: Lovenox 40 mg SQ q24h (cautiously in light of self-reported melena) strongly advised against d/c home today if he is feeling confident with his diabetes self-care by tomorrow and if BSGs are controlled can d/c on 08/23 Admission and Anticipated Discharge Date Admission Date: August 21, 2023 Subjective saw patient in the ER before he got his bed on the PCU he was still requiring about 2 units/hr of regular insulin IV BSGs were significantly down, however he reported he was hungry recent sinusitis/URI was improved; reports no significant chest congestion minimal cough he was very irritated during the visit, stating he was going to go home later today we had a lengthy discussion about such I advised against d/c home today numerous reasons to stay overnight -- still on insulin infusion, still need to figure out insulin requirements, still needing insulin teaching, etc he admits to not checking his bsgs at home he reports his last a1c with his PCP was "in the 6's" and doesn't believe the a1c we got here (>12) has been voiding 2-3 times each night at home has lost weight recently Review of Systems Review of Systems: gen - no fevers cv - no chest pain pulm - no dyspnea or FORMAN GI - no N/V or abd pain Physical Exam Physical Exam: gen - obese, NAD, irritated mouth - MMM, no lesions, no thrush neck - no JVD heart - RRR, s1 s2, no murmur lungs - CTA b/l abd - soft NT ND BS+ ext - no edema, pulses 2+ b/l Results & Data Results & Data Vital Signs (Past 12 Hours) Vital Signs Pulse Resp BP Pulse Ox O2 Del Method 08/22/23 07:17 77 08/22/23 06:20 179 H 08/22/23 06:04 61 20 143/87 H 94 Room Air 08/22/23 06:01 143 H 08/22/23 05:13 82 22 152/96 H 96 08/22/23 03:30 67 18 185/102 H 92 08/22/23 03:00 69 23 161/96 H 88 L 08/22/23 02:30 138/85 08/22/23 02:30 67 15 94 08/22/23 02:25 65 15 89 L 08/22/23 02:24 74 22 93 08/22/23 02:00 66 17 133/79 94 08/22/23 01:30 73 13 90 08/22/23 01:00 69 12 94 08/22/23 00:30 73 20 90 Laboratory Results Laboratory Results - last 24 hr 08/22/23 08/22/23 08/22/23 00:03 00:34 01:05 WBC RBC Hgb Hct MCV MCH MCHC RDW Std Deviation RDW Coeff of Cyndie Plt Count MPV Immature Gran % (Auto) Neut % (Auto) Lymph % (Auto) Bennett % (Auto) Eos % (Auto) Baso % (Auto) Neut # (Auto) Lymph # (Auto) Bennett # (Auto) Eos # (Auto) Baso # (Auto) Immature Gran # (Auto) VBG pH 7.42 H Sodium 134 L Potassium 3.7 Chloride 99 Carbon Dioxide 26 Anion Gap 9 BUN 19 Creatinine 0.95 Est Cr Clr Drug Dosing 85.8 Est GFR ( Amer) 95.6 Est GFR (Non-Af Amer) 82.5 BUN/Creatinine Ratio 20.0 Glucose 304 H* POC Glucose 338 H* 279 H Calcium 8.3 L Phosphorus 2.2 L Magnesium 2.0 08/22/23 08/22/23 08/22/23 02:03 03:04 03:56 WBC 12.10 H RBC 5.22 Hgb 15.1 Hct 43.4 MCV 83.1 MCH 28.9 MCHC 34.8 RDW Std Deviation 38.0 RDW Coeff of Cyndie 12.6 Plt Count 170 MPV 11.7 Immature Gran % (Auto) 0.8 Neut % (Auto) 65.5 Lymph % (Auto) 25.2 Bennett % (Auto) 6.1 Eos % (Auto) 1.8 Baso % (Auto) 0.6 Neut # (Auto) 7.92 H Lymph # (Auto) 3.05 Bennett # (Auto) 0.74 H Eos # (Auto) 0.22 Baso # (Auto) 0.07 Immature Gran # (Auto) 0.10 VBG pH 7.42 H Sodium 134 L Potassium 3.6 Chloride 100 Carbon Dioxide 25 Anion Gap 9 BUN 17 Creatinine 0.82 Est Cr Clr Drug Dosing 99.5 Est GFR ( Amer) 106.1 Est GFR (Non-Af Amer) 91.5 BUN/Creatinine Ratio 20.7 H Glucose 240 H POC Glucose 248 H 225 H Calcium 8.2 L Phosphorus 2.1 L Magnesium 1.9 08/22/23 08/22/23 08/22/23 04:57 08:46 08:53 WBC RBC Hgb Hct MCV MCH MCHC RDW Std Deviation RDW Coeff of Cyndie Plt Count MPV Immature Gran % (Auto) Neut % (Auto) Lymph % (Auto) Bennett % (Auto) Eos % (Auto) Baso % (Auto) Neut # (Auto) Lymph # (Auto) Bennett # (Auto) Eos # (Auto) Baso # (Auto) Immature Gran # (Auto) VBG pH 7.43 H Sodium 133 L Potassium 3.9 Chloride 102 Carbon Dioxide 24 Anion Gap 7 BUN 15 Creatinine 0.85 Est Cr Clr Drug Dosing 96.0 Est GFR ( Amer) 104.5 Est GFR (Non-Af Amer) 90.2 BUN/Creatinine Ratio 17.6 Glucose 197 H POC Glucose 201 H 175 H Calcium 8.3 L Phosphorus 2.0 L Magnesium 1.9 08/22/23 08/22/23 08/22/23 12:14 12:15 15:13 WBC RBC Hgb Hct MCV MCH MCHC RDW Std Deviation RDW Coeff of Cyndie Plt Count MPV Immature Gran % (Auto) Neut % (Auto) Lymph % (Auto) Bennett % (Auto) Eos % (Auto) Baso % (Auto) Neut # (Auto) Lymph # (Auto) Bennett # (Auto) Eos # (Auto) Baso # (Auto) Immature Gran # (Auto) VBG pH 7.43 H Sodium 134 L Potassium 3.9 Chloride 101 Carbon Dioxide 24 Anion Gap 9 BUN 13 Creatinine 0.77 Est Cr Clr Drug Dosing 105.9 Est GFR ( Amer) 108.8 Est GFR (Non-Af Amer) 93.9 BUN/Creatinine Ratio 16.9 Glucose 190 H POC Glucose 170 H 277 H Calcium 8.5 L Phosphorus 2.1 L Magnesium 1.7 08/22/23 08/22/23 08/22/23 16:44 20:03 22:59 WBC RBC Hgb Hct MCV MCH MCHC RDW Std Deviation RDW Coeff of Cyndie Plt Count MPV Immature Gran % (Auto) Neut % (Auto) Lymph % (Auto) Bennett % (Auto) Eos % (Auto) Baso % (Auto) Neut # (Auto) Lymph # (Auto) Bennett # (Auto) Eos # (Auto) Baso # (Auto) Immature Gran # (Auto) VBG pH Sodium Potassium Chloride Carbon Dioxide Anion Gap BUN Creatinine Est Cr Clr Drug Dosing Est GFR ( Amer) Est GFR (Non-Af Amer) BUN/Creatinine Ratio Glucose POC Glucose 214 H 189 H 169 H Calcium Phosphorus Magnesium PG Care Time/CCT Total # of Minutes Spent Total Time Spent with Patient: Total time spent is greater than 50% in coordination of care (as documented) at patient's floor/unit and/or counseling patient: Coding Level of Care Code 46967 SUB INP/OBS CARE 2/35MIN Diagnoses Hyperosmolar hyperglycemic state (HHS) E11.00 Type 2 diabetes mellitus E11.69 Diabetes mellitus complication status: with other specified complication Diabetes mellitus residential insulin use: unspecified terminal carman insulin use status Hyponatremia E87.1 Hypercholesterolemia E78.00 Hypertension I10 Melena K92.1 URI (upper respiratory infection) J06.9 Morbid obesity with BMI of 40.0-44.9, adult E66.01; Z68.41 Hypophosphatemia E83.39 (2) Type 2 diabetes mellitus Diabetes mellitus complication status: with other specified complication Diabetes mellitus residential insulin use: unspecified terminal carman insulin use status Qualified Code(s): E11.69 - Type 2 diabetes mellitus with other s pecified complication
[2023-08-22 12:44] LABS: BUN Creatinine Ratio 16.9 (10-20); Calcium 8.5 mg/dl (8.6-10.3); Creatinine Clr Calc Pharmacy 105.9 ml/min; Est GFR (African American) 108.8 ml/min; Est GFR (Non-African American) 93.9 ml/min; Magnesium 1.7 mg/dl (1.7-2.4); Phosphorus 2.1 mg/dl (2.5-4.9); Potassium 3.9 mmol/L (3.5-5.1)
[2023-08-22 16:50] VITALS: RESP 18
[2023-08-22] MEDS: INSULIN ASPART PER UNIT CHARGE SC SCH ×2 (17:09→23:15)
--- NOTE | 2023-08-23 05:31 | Electrocardiogram Report ---
Test Reason : Blood Pressure : / mmHG Vent. Rate : 096 BPM Atrial Rate : 096 BPM P-R Int : 160 ms QRS Dur : 094 ms QT Int : 354 ms P-R-T Axes : 057 -40 087 degrees QTc Int : 447 ms Normal sinus rhythm Left axis deviation Inferior infarct , age undetermined Abnormal ECG When compared with ECG of 18-JUL-2014 20:04, Nonspecific T wave abnormality no longer evident in Inferior leads Nonspecific T wave abnormality now evident in Lateral leads Confirmed by Mark Dodge ([id number]) on 08/23/2023 5:31:23 AM Referred By: Confirmed By:Mark Dodge
[2023-08-23 06:38] LABS: Hematocrit (blood only) 44.5 % (42.0-52.0); Hemoglobin 15.6 g/dl (14.0-18.0)
[2023-08-23 06:39] LABS: BUN Creatinine Ratio 13.6 (10-20); Calcium 8.6 mg/dl (8.6-10.3); Creatinine Clr Calc Pharmacy 100.8 ml/min; Est GFR (African American) 106.6 ml/min; Potassium 3.6 mmol/L (3.5-5.1)
[2023-08-23] MEDS: LANTUS PER UNIT CHARGE SC ONE (08:06)
[2023-08-23] MEDS: metFORMIN HCL 500 MG TAB PO SCH (11:33)
[2023-08-23 14:36] LABS: Magnesium 1.7 mg/dl (1.7-2.4)
--- NOTE | 2023-08-23 14:44 | Pharmacy Report ---
Pharmacy Glycemic Short Note 2 - Date of Service August 23, 2023 - Glycemic Short BSG Results (Last 24 hours): 08/22/23 08/22/23 08/22/23 15:13 16:44 20:03 Glucose POC Glucose 277 H 214 H 189 H 08/22/23 08/23/23 08/23/23 22:59 03:46 05:42 Glucose 187 H POC Glucose 169 H 159 H 08/23/23 08/23/23 07:02 11:10 Glucose POC Glucose 186 H 219 H OUTPATIENT ANTIDIABETIC REGIMEN: * metformin 500 mg bid (patient only takes once daily per notes) * HbA1c 12.3% on 08/21/23 ASSESSMENT: 08/23 * Possible discharge today. Plan as discussed with Dr. Marley and Kalee Gagnon is to add once daily Lantus to his outpatient metformin. Anticipated discharge dose of 40 units/day (with no Novolog) * Gave 35 units Lant[address] this AM. Dr. Marley resumed metformin. Will therefore eliminate CHO ratio but keep Novolog correctional as inpatient. 08/22 * 68 year old male admitted with HHS - started on insulin infusion per protocol. BSGs improving more this AM, labs improved. Reasonable to trial SQ insulin this AM. Insulin drip running at 2.9 units/hr, anticipate rate to further decrease with next check. Fluids with no dextrose, NPO status still. Discussed with RN and patient feeling well this morning, ready to leave. Anticipate diet to be ordered. * Will give Lantus 38 units x 1 now to be given with insulin drip. (full weight based stress of 2 dosing) Will plan to overlap with insulin drip ~4 hours and will consider d/c insulin drip if BSGs stable PLAN FOR INPATIENT GLYCEMIC CONTROL: * Resumed metformin today * Basal insulin * Lantus 35 units x 1 this AM with additional 10 units tonight if BSG > 160 mg/dL * Bolus insulin * NovoLog per scale ACHS or Q6hrs while NPO * Goal Range: Low 110 mg/dL - High 140 mg/dL * Correction Factor: 15 mg/dL/unit * No carb ratio
[2023-08-23] MEDS: MAGNESIUM OXIDE 400 MG TAB PO ONE (15:11)
[2023-08-23] MEDS: METOPROLOL TARTRATE 25 MG TAB PO STA (15:12)
[2023-08-23] MEDS: MAGNESIUM SULFATE / D5W 1 GM/100 ML BAG IV ONE (15:12)
[2023-08-23 15:39] VITALS: BP 119/82; PULSE 101; TEMP 97.9; O2SAT 96
--- NOTE | 2023-08-23 17:43 | Discharge Summary ---
Date of Service August 23, 2023 Admission HPI Per Admitting Provider Brian is a pleasant 68-year-old male with PMH of hypercholesterolemia, diverticulitis, and HTN. Patient presented for worsening congestion, weight loss, and generalized weakness x 1 week. Patient was placed on Augmentin and a prednisone taper outpatient on 08/15/2023 for cold-like symptoms, productive cough, and congestion. He notes that he has lost around 30 pounds over the past week, and that his wedding ring slipping off. He notes the cough has persisted, and and that he has loss of appetite, as well as dark tarry stools that started the day after he started Augmentin. Patient is supposed to take metformin twice daily for his diabetes, but notes that he only takes it once per day. He did not take any of his regular medications this morning, and reports that he usually likes to take it at night. He reports a recent loss of appetite. He denies recent alcohol use within the past 3 weeks. He endorses tobacco use, but denies smoking tobacco. He reports that his recent around sick contacts at [facility], and that he lives with his 2 granddaughters who are sometimes sick. He denies a history of DKA. He last took prednisone the evening of 08/20 before coming into the ED. He has been taking the amoxicillin as prescribed. Patient is hypertensive at 164/100 at time of admission; vitals otherwise stable. ED course: Insulin drip Plasma-Lyte 2000 mL IV ROS: Patient endorses generalize weakness, loss of appetite, blurry vision, sore throat, productive cough, sinus congestion, dark/tarry stool (which started the day after starting aumentin), and weight loss over the last week. Patient denies fever, chills, nightsweats, dizziness, lightheadedness, headaches, chest pain, SOB, chest palpitations, pleuritic CP, hemoptysis, abdominal pain, N/V/D, burning with urination, blood in stool or urine, or numbness/tingling in arms or legs. Discharge Exam gen - obese, NAD, irritated mouth - MMM, no lesions, no thrush neck - no JVD heart - RRR, s1 s2, no murmur lungs - CTA b/l abd - soft NT ND BS+ ext - no edema, pulses 2+ b/l Discharge Data Allergies Allergy/AdvReac Type Severity Reaction Status Date / Time No Known Allergies Allergy Unknown Verified 05/09/16 23:20 Consultations 08/21/23 16:31 ED Decision to Admit Stat Hospital Course (1) Hyperosmolar hyperglycemic state (HHS): resolved with insulin infusion, IV fluids, supportive care weaning off insulin infusion transitioning to basal-bolus SC regimen appreciate pharmacy glycemic team recs appreciate religious educator consult & recs labs are nearly normal this afternoon - stop serial BMPs/mag/phos/pH can d/c IV fluids this afternoon - appears hydrated, diet has been started a1c noted (12.3%) follow BSGs overnight (2) Type 2 diabetes mellitus: uncontrolled A1c 12.3% does not check BSGs at home this will be vital for him to get his DM under better control strongly consider DM clinic f/u post-discharge I corresponded with Kalee from the diabetes team - plan lantus daily + metformin at discharge with close PCP f/u (+/- DM clinic) (3) Hyponatremia: Na 125 at presentation 134 today improved s/p isotonic fluids can stop IV fluids HCTZ chronically may also be contributing to low Na BMP am (4) Hypercholesterolemia: Continue atorvastatin (5) Hypertension: Continue hydrochlorothiazide, lisinopril (6) Melena: pt reported such at admission, but H/H stable no stool thus far to perform fecal occult will do so once he has a stool (7) URI (upper respiratory infection): recent URI treated with abx/steroids stop both symptomatic care / supportive care (8) Morbid obesity with BMI of 40.0-44.9, adult: BMI ~40 (9) Hypophosphatemia: start k-phos neutral 1 cap QID Plan VTE PPx: Lovenox 40 mg SQ q24h (cautiously in light of self-reported melena) strongly advised against d/c home today if he is feeling confident with his diabetes self-care by tomorrow and if BSGs are controlled can d/c on 08/23 Discharge Plan Discharge Items Patient Disposition: Home - Self-Care Reason For Visit: High glucose levels Discharge Diagnosis: 1. Very high glucose levels - markedly improved 2. Hyperosmolar hyperglycemic state - resolved (high glucose levels leading to systemic illness) 3. Recent sinusitis - resolved 4. Low sodium level - resolved 5. tachycardia - possible "SVT" (supraventricular tachycardia) vs atrial tachycardia vs other - additional work-up needed 6. PVCs (extra beats from the bottom of the heart) Activity: As commented below Activity Comment: light activities only until you see your family doctor Non-emergency contact: Primary Care Provider Call non-emergency contact if: you have any medication questions and your symptoms worsen Follow-up/Referrals: Scar Jones PA-C [Primary Care Provider] - Kaia Carpenter MD [Outside Practitioners] - 08/29/23 1:00 pm Diet: Carb Consistent or DM2 Addtl Attending Provider Instructions: Mr Cabrera, You were hospitalized due to uncontrolled diabetes/very high blood glucose (sugar) levels. Upon presentation to [facility] your blood sugars were greater than 700. These high blood sugars made you systemically ill. The high blood sugars led to severe dehydration, low sodium levels, etc. You improved with IV fluids, IV insulin, and supportive care. Your blood sugars are nearly all less than 225 at time of discharge. Your hemoglobin a1c was 12.3% on 08/21/23, which is an average blood sugar level of 306. During your stay the religious educator met with you to teach you about insulin basics and insulin pen use. The religious educator also spoke to you about diet, fingerstick blood sugar checks, etc. Recommendations - 1. Lantus (glargine) insulin pen -- 40 units subcutaneously once daily each morning. Start THIS TOMORROW MORNING, 08/24/23. * this is a 24-hour insulin * try to take the insulin about the same time each morning * be sure to change the injection site on your abdominal wall day to day (that is, do not inject the insulin in the same location every day) * the insulin will come in a pack of 5 pens * the pen you are currently using does not need to be refrigerated * the other 4 pens that are not in use can be stored in your refrigerator until they are needed 2. Metformin - take twice daily with meals (Breakfast & Evening meals) * starting 08/24/23 - take 500mg twice daily and do this for 7 days * after 7 days please increase the metformin to 1000mg with breakfast and 500mg with the evening meal * then, 7 days after that, increase metformin to 1000mg with breakfast and 1000mg with the evening meal * If you prefer to take the Metformin once daily in the morning, would recommend having your provider switch to the extended release version --> Metformin ER 750mg x 2 in AM. 3. Check your blood sugars at least twice daily. * check your sugar each morning every day * then, check your sugar at least 1 other time during the day such as before lunch, before dinner, or before bedtime * try changing the time of your blood sugar checks to help you can get a sense of what your blood sugar levels are throughout the entire day * be sure to write down these sugar sugar levels in a notebook to review with the religious educator and your provider. 4. Follow-up - see your family doctor within 1 week. Please bring a copy of your blood sugars to your provider for his/her review. 5. Please stop the steroids you had been taking as well as any antibiotic since your sinus infection is resolved. 6. Due to tachycardia (fast heart rate) that we were seeing on the heart monitor I am recommending the following - * stop your hydrochlorothiazide water pill * START metoprolol succinate 25mg once daily on 08/24/23; take every morning * 30-day monitor - this will be mailed to your home with instructions on how to use the device; it is typically mailed within about 1 week * results will be interpreted by [facility] The tachycardia is coming from the top portion of the heart. Hopefully the monitor at home will give us more information about the type of tachycardia you are having. You were also having "PVCs" on the heart monitor while here (PVCs are extra beats that come from the bottom of the heart). I am concerned by many of the things we have seen on the heart monitor during your stay. Further, I do not have your full echocardiogram report back from the penciller. I have recommended continued hospitalization to monitor these heart rhythms and to obtain additional information about your heart. Some heart rhythms can increase the risk of stroke, and other abnormal rhythms can lead to passing out, cardiac arrest, and even . You voiced that you understand all of the above information. Despite my recommendation to remain hospitalized you have chosen to return home/discharge home. It is your responsibility to follow-up with your family doctor and any other specialists as soon as possible. We also discussed trying to restrict your alcohol intake as it has negative effects on your heart health as well as your diabetes. Return to [facility] if - * you have persistently high blood sugars despite taking your insulin & metformin (your sugars are 300 or higher consistently) * you have recurrent LOW blood sugar (sugars less than 80 consistently) * you have concerns for dehydration * you have fever over 100 degrees * you have chest pain, difficulty breathing, or have racing of the heart (palpitations) * you feel like you could pass out or actually pass out * any other concerns Pending Studies at Discharge: No Stand-Alone Forms: My [facility], Smoking Cessation Medications and DC Order Prescriptions: New (DME) pen needle, diabetic [Pen Needle] 32 gauge x 5/32" needle See Rx Instructions .Route Qty: 100 2RF Rx Instructions: As directed with lantus pen daily (DME) OneTouch Verio test strips Strip See Rx Instructions .Route Qty: 100 2RF Rx Instructions: Check blood sugars 3 times daily. (DME) lancets 33 gauge misc See Rx Instructions .Route Qty: 100 2RF Rx Instructions: Check blood sugars 3 times daily. insulin glargine [Lantus Solostar U-100 Insulin] 100 unit/mL (3 mL) insulin pen See Rx Instructions .ROUTE .COMPLEX Qty: 15 2RF Rx Instructions: 40-50 units Subcutaneous QAM. metoprolol succinate 25 mg tablet extended release 24 hr 25 mg PO DAILY Qty: 30 2RF Continued metformin 500 mg tablet 500 mg PO BID atorvastatin 20 mg tablet 20 mg PO DAILY aspirin [Aspir-Low] 81 mg Tablet,Delayed Release (Dr/Ec) 81 mg PO DAILY lisinopril 30 mg tablet 30 mg PO DAILY Discontinued methylprednisolone 4 mg tablets,dose pack 4 mg PO DIRECTED amoxicillin-pot clavulanate 875-125 mg tablet 1 tab PO .BID 10 DAYS hydrochlorothiazide 12.5 mg tablet 12.5 mg PO DAILY Discharge Orders: Discharge Order (Routine); Ordered 08/23/23 Ordered By: Cole Lozano/Other Patient Handouts: Hypoglycemia (Low Blood Sugar), Managing Diabetes: The A1C Test, Diabetes- Know Your Goal Numbers, Understanding Tachycardia, Hypoglycemia Tx Steps Admission Data Admit Date/Time: 08/22/23 18:21 Attending Provider: Cole Marley Admit Provider: Cole Byrd Primary Care Provider: Scar Jones Other Providers: Cole Byrd Coding Diagnoses Hyperosmolar hyperglycemic state (HHS) E11.00 Type 2 diabetes mellitus E11.69 Diabetes mellitus complication status: with other specified complication Diabetes mellitus ferry terminal supervisor insulin use: unspecified skilled nursing insulin use status Hyponatremia E87.1 Hypercholesterolemia E78.00 Hypertension I10 Melena K92.1 URI (upper respiratory infection) J06.9 Morbid obesity with BMI of 40.0-44.9, adult E66.01; Z68.41 Hypophosphatemia E83.39
--- NOTE | 2023-08-23 19:16 | XCELERA ---
[id number]
[2023-08-23] MEDS ORDERED: LANTUS PER UNIT CHARGE SC ONE (21:00)
--- NOTE | 2023-08-24 21:06 | Electrocardiogram Report ---
Test Reason : Blood Pressure : / mmHG Vent. Rate : 094 BPM Atrial Rate : 094 BPM P-R Int : 152 ms QRS Dur : 098 ms QT Int : 352 ms P-R-T Axes : 046 -44 077 degrees QTc Int : 440 ms Normal sinus rhythm Left axis deviation Inferior infarct (cited on or before 21-AUG-2023) Nonspecific T wave abnormality Abnormal ECG When compared with ECG of 21-AUG-2023 14:39, No significant change was found Confirmed by Mark Dodge ([id number]) on 08/24/2023 9:06:11 PM Referred By: REFERRED SELF Confirmed By:Mark Dodge
--- NOTE | 2023-08-25 11:32 | Electrocardiogram Report ---
Test Reason : Blood Pressure : / mmHG Vent. Rate : 131 BPM Atrial Rate : 102 BPM P-R Int : 000 ms QRS Dur : 098 ms QT Int : 320 ms P-R-T Axes : 000 -49 085 degrees QTc Int : 472 ms Poor data quality, interpretation may be adversely affected Sinus tachycardia with frequent Premature ventricular complexes Left axis deviation Incomplete right bundle branch block Septal infarct , age undetermined Abnormal ECG When compared with ECG of 23-AUG-2023 13:30, (unconfirmed) Premature ventricular complexes are now Present Incomplete right bundle branch block is now Present Septal infarct is now Present Confirmed by Daquan Mandel ([id number]) on 08/25/2023 11:31:38 AM Referred By: REFERRED SELF Confirmed By:Daquan Mandel
== END 2023-08-23 18:14 | disposition home or self-care (01) | DRG 638 ==
LOC: ED 13:32 → EDINP 13:32 → SUATTDRO 17:39 → 2E 22:14
DX: J06.9 Acute upper respiratory infection, unspecified; E87.1 Hypo-osmolality and hyponatremia; Z79.84 Long term (current) use of oral hypoglycemic drugs; Z68.41 Body mass index [BMI] 40.0-44.9, adult; I10 Essential (primary) hypertension; E78.5 Hyperlipidemia, unspecified; Z79.82 Long term (current) use of aspirin; E66.01 Morbid (severe) obesity due to excess calories; E83.39 Other disorders of phosphorus metabolism; K92.1 Melena; E11.00 Type 2 diabetes mellitus with hyperosmolarity without nonketotic hyperglycemic-hyperosmolar coma (NKHHC)

== ENCOUNTER 2023-11-21 17:32 | Inpatient (IN) ==
--- NOTE | 2023-11-21 18:06 | ED Triage Note ---
Date of Service November 21, 2023 Provider in Triage Author: Vaibhav Marinelli A History of Present Illness This patient was briefly evaluated while in triage. An abbreviated physical exam was performed. This patient is a 68-year-old Male who presents to the ED for evaluation of SOB symptoms. Intermittent symptoms for 3 months. Follows with Cardiology, and feels his beta jorge might be the cause. Has been on Metoprolol for about 2 months. Physical Exam Limited Triage Exam: VITALS: Vitals are noted on the nurse's note and reviewed by myself. Vital signs stable. GENERAL: Well-developed, well-nourished, white male, who is in no acute distress and resting comfortably. Patient is cooperative with the examination. HEART: Regular rate and rhythm without murmurs gallops or rubs. LUNGS: Clear to auscultation bilaterally without wheezes, rales or rhonchi. No retractions or accessory muscle use. NEURO: Patient was alert and oriented to person place and time. CN II through XII grossly intact. Initial orders for labs and / or imaging were placed and patient was placed in the waiting area until a bed is available. Please see further documentation for the full ED course. MDM / Impression Impression Impression: Pulmonary edema, Elevated troponin I level, FORMAN (dyspnea on exertion) Impression: Pulmonary edema Qualifiers: Chronicity: acute Qualified Code(s): J81.0 - Acute pulmonary edema
--- NOTE | 2023-11-21 18:50 | XRay Report ---
XR chest 1V portable CLINICAL HISTORY: Dyspnea. COMPARISON STUDY: Chest radiograph August 21, 2023. FINDINGS: Lung volumes are normal. Lungs are clear. There is no pneumothorax or pleural effusion. The re is mild cardiomegaly pulmonary vascular congestion. IMPRESSION: Mild cardiomegaly with pulmonary vascular congestion. ACT 112: Negative or not required by law. Electronically signed by: Travis Flores M.D. 11/21/2023 6:49 PM
[2023-11-21 18:56] LABS: Basophils # (auto) 0.08 K/uL (0.00-0.20); Basophils % (auto) 0.7 %; Eosinophils # (auto) 0.13 K/uL (0.00-0.50); Eosinophils % (auto) 1.1 %; Hematocrit (blood only) 48.5 % (42.0-52.0); Hemoglobin 15.7 g/dl (14.0-18.0); Immature Granulocytes # (auto) 0.07 K/uL (0.01-0.20); Immature Granulocytes % (auto) 0.6 %; Lymphocytes # (auto) 2.33 K/uL (1.20-3.40); Mean Corpuscular Hemoglobin 26.9 pg (25.0-34.0); Mean Corpuscular Hgb Conc 32.4 g/dL (32.0-36.0); Mean Corpuscular Volume 83.2 fL (80.0-100.0); Mean Platelet Volume 11.6 fL (9.4-12.4); Monocytes # (auto) 0.91 K/uL (0.11-0.59); Monocytes % (auto) 7.4 %; Neutrophils # (auto) 8.77 K/uL (1.40-6.50); Neutrophils % (auto) 71.2 %; Platelet Count 228 K/uL (130-400); Red Blood Count 5.83 M/uL (4.70-6.10); White Blood Count 12.29 K/ul (4.8-10.8)
[2023-11-21 19:05] LABS: Albumin Globulin Ratio 1.6 (0.9-2); Albumin Level 4.4 gm/dl (3.4-5.0); BUN Creatinine Ratio 16.1 (10-20); Bilirubin,Total 2.7 mg/dl (0.2-1.0); Calcium 10.2 mg/dl (8.6-10.3); Creatinine Clr Calc Pharmacy 72.1 ml/min; Est GFR (African American) 78.4 ml/min; Est GFR (Non-African American) 67.6 ml/min; Globulin 2.7 gm/dl (2.5-4.0); Potassium 4.4 mmol/L (3.5-5.1); Total Protein 7.1 gm/dl (6.0-8.3)
--- NOTE | 2023-11-21 19:05 | Emergency Department Note ---
Impression & Plan Pulmonary edema, Elevated troponin I level, FORMAN (dyspnea on exertion) ED Provider Note NAME: AMY CERNA Sr AGE: 68 SEX: M : 1955 ARRIVES VIA: Walk-In INFORMANT: Patient, ED PROVIDER(S): Daquan Kirk DO CHIEF COMPLAINT: Shortness of breath HPI: Patient is a 68-year-old male who presented to the emergency department for evaluation of shortness of breath. The patient has had symptoms over the course the last few weeks. He was admitted to our facility a few months ago with similar complaints. At that time he did have a cardiac workup. He is also had an outpatient cardiac workup. The patient was told that he may have need of a cardiac catheterization. The patient denies having any lower extremity swelling. He denies having any chest pain. He has noticed increasing shortness of breath especially with exertion. The patient denies having any coughing or hemoptysis. The patient was seen recently by his primary care physician as well as his main rib knitter. He did have some changes to his medications including his beta-jorge. ROS: See above HPI for pertinent positives & negatives. A total of 10 systems reviewed and were otherwise negative. PAST MEDICAL HISTORY: See Below PAST SURGICAL HISTORY: See Below FAMILY HISTORY: See Below SOCIAL HISTORY: See Below HOME MEDICATIONS: See Below ALLERGIES: See Below VITALS: See Below PHYSICAL EXAMINATION: GENERAL: Patient is awake alert in no acute distress patient is resting comfortably and showing no signs of anxiety EYES: The conjunctivae are clear. The pupils are round and reactive. EARS, NOSE, MOUTH AND THROAT: The nose is without any evidence of any deformity. NECK: The neck is nontender and supple. RESPIRATORY: Normal respiratory effort is noted there is no evidence of wheezing rhonchi or rales CARDIOVASCULAR: Regular rate and rhythm noted there no murmurs rubs or gallops normal S1 normal S2. GASTROINTESTINAL: The abdomen is soft. Abdomen is nontender. MUSCULOSKELETAL/EXTREMITIES: There is no evidence of gross deformity full range of motion is noted in the hips and shoulders. SKIN: There is no obvious evidence of any rash. Trace pedal edema was noted bilaterally. NEUROLOGIC: Patient is awake alert and oriented x3 MEDICAL DECISION MAKING: The patient is a 68-year-old male who presented to the emergency department for an evaluation of dyspnea on exertion. The patient had a workup ordered from triage which did include cardiac workup but also included a D-dimer because the patient was recently an inpatient. His D-dimer was elevated. This led to a CT of the chest being obtained. I discussed the patient's laboratory and radiographic studies with him. He was treated with IV Lasix in the emergency department. He does appear to have some degree of pulmonary edema. I did review the patient's previous cardiac workup. There was recommendation that the patient obtain a cardiac catheterization because of his abnormalities noted on echocardiogram. The patient has not had this workup as of yet. Given the patient's findings I discussed his condition with the on-call [facility]ist. They have agreed to evaluate the patient in the emergency department for further management and disposition. Triage Nursing notes reviewed. Prior medical records reviewed Vital Signs: reviewed and remarkable for no significant abnormalities Differential diagnosis: Reactive airway disease, pneumonia, pneumothorax, COPD, CHF, infections, cardiac ischemia, pulmonary embolism, musculoskeletal, gastrointestinal, as well as other pathologies. ER treatment provided: See below Diagnostics interpreted by me: ECG: EKG was obtained in the emergency department. My interpretation is normal sinus rhythm at 93 bpm. There is no ectopy. Nonspecific ST segment abnormalities were noted. This was compared to a tracing from August 23, 2023. The previous EKG showed signs of atrial tachycardia however this is since resolved. There is no significant changes in the QRST morphology. Cardiac Monitoring: An order was placed for continuous cardiac monitoring. The monitor shows a rate of 86 bpm with sinus rhythm. Laboratory studies: As stated above and show below. Imaging studies: See below. Radiographic imaging was reviewed by myself Consultation(s): I discussed this case with Dr. Aguayo who is on-call for the [facility] group. Past Med/Surg History Problem List (Updated 11/21/23 @ 20:53 by Dqauan Kirk DO) FORMAN (dyspnea on exertion) (Acute) Elevated troponin I level (Acute) Pulmonary edema (Acute) Narrow complex tachycardia Uncontrolled type 2 diabetes mellitus with hyperosmolar nonketotic hyperglycemia Hypophosphatemia Morbid obesity with BMI of 40.0-44.9, adult URI (upper respiratory infection) Acute hyponatremia (Acute) Weakness (Acute) Acute hyperglycemia (Acute) Melena Hyponatremia Headache (Acute) Diverticulitis Medical History Type 2 diabetes mellitus Hyperosmolar hyperglycemic state (HHS) Hypercholesterolemia Hypertension Social History Smoking Status: Never smoker Tobacco Type: Smokeless Tobacco (Dip or Chew) Do You Dip or Chew Tobacco: Yes; Hx Alcohol Use: Yes Alcohol type: beer Hx Substance Use: No Preferred Language: Yakut Communication Ability: Effective Manager Terminal Required: No Beliefs That Will Affect Care: None Current Living Situation: Spouse Current Living Situation Comment: with Alethea Feels Safe at Home: Yes Assistive Devices: None Allergies Allergies Allergy/AdvReac Type Severity Reaction Status Date / Time No Known Allergies Allergy Unknown Verified 11/21/23 20:15 Home Meds Home Medications Medication Instructions Recorded Confirmed aspirin 81 mg tablet,delayed 81 mg PO HS 08/21/23 11/21/23 release atorvastatin 20 mg tablet 20 mg PO HS 08/21/23 11/21/23 metformin 500 mg tablet 500 mg PO BID 08/21/23 11/21/23 lisinopril 40 mg tablet 40 mg PO HS 11/21/23 11/21/23 lorazepam 1 mg tablet 1 mg PO DAILY PRN Anxiety 11/21/23 11/21/23 metoprolol succinate 50 mg 50 mg PO BID 11/21/23 11/21/23 tablet,extended release 24 hr Previous Rx's Medication Instructions Recorded blood sugar diagnostic (OneTouch #100 ea 08/23/23 Verio test strips) lancets 33 gauge #100 ea 08/23/23 pen needle, diabetic 32 gauge x #100 ea 08/23/23 5/32" (Pen Needle) Results & Data (ED) Vital Signs Vital Signs - 24 hr 11/21/23 18:03 11/21/23 18:44 11/21/23 18:44 Temperature 36.8 C Temperature Source Temporal Artery Scan Pulse Rate 93 H Pulse Rate [Apical] Pulse Rhythm [Apical] Pulse Strength [Apical] Respiratory Rate 16 Respiratory Effort / Characteristics Non-Labored Spontaneous Spontaneous Respiratory Depth Normal Normal Respiratory Pattern Regular Blood Pressure 151/110 H Blood Pressure [Right Arm] Blood Pressure Mean 123 Blood Pressure Mean [Right Arm] Blood Pressure Position Sitting Blood Pressure Position [Right Arm] Pulse Oximetry 97 Oxygen Delivery Method Room Air Room Air Sepsis Recent Fever Within 48 Hours No Sepsis New/Unexplained Change in Mental Status N/A Sepsis Action Taken by Nursing No Action Required 11/21/23 18:44 11/21/23 18:54 11/21/23 19:43 Temperature Temperature Source Pulse Rate 94 H Pulse Rate [Apical] 82 Pulse Rhythm [Apical] Regular Pulse Strength [Apical] Normal Respiratory Rate 20 17 Respiratory Effort / Characteristics Non-Labored Spontaneous Non-Labored Spontaneous Respiratory Depth Normal Normal Respiratory Pattern Regular Blood Pressure Blood Pressure [Right Arm] 139/101 H Blood Pressure Mean Blood Pressure Mean [Right Arm] 113 Blood Pressure Position Blood Pressure Position [Right Arm] Semi-fowlers Pulse Oximetry 96 94 Oxygen Delivery Method Room Air Room Air Sepsis Recent Fever Within 48 Hours Sepsis New/Unexplained Change in Mental Status Sepsis Action Taken by Halfway Medications Current Medication List: was personally reviewed by me Laboratory Data Attestation: I reviewed the patient's lab results. 11/21/23 18:11 11/21/23 18:11 Lab Results 11/21/23 11/21/23 11/21/23 Range/Units 18:11 19:46 20:45 WBC 12.29 H (4.8-10.8) K/ul RBC 5.83 (4.70-6.10) M/uL Hgb 15.7 (14.0-18.0) g/dl Hct 48.5 (42.0-52.0) % MCV 83.2 (80.0-100.0) fL MCH 26.9 (25.0-34.0) pg MCHC 32.4 (32.0-36.0) g/dL RDW Std Deviation 42.0 (36.4-46.3) fL RDW Coeff of Cyndie 14.0 (11.5-14.5) % Plt Count 228 (130-400) K/uL MPV 11.6 (9.4-12.4) fL Immature Gran % (Auto) 0.6 % Neut % (Auto) 71.2 % Lymph % (Auto) 19.0 % [place] % (Auto) 7.4 % Eos % (Auto) 1.1 % Baso % (Auto) 0.7 % Neut # (Auto) 8.77 H (1.40-6.50) K/uL Lymph # (Auto) 2.33 (1.20-3.40) K/uL [place] # (Auto) 0.91 H (0.11-0.59) K/uL Eos # (Auto) 0.13 (0.00-0.50) K/uL Baso # (Auto) 0.08 (0.00-0.20) K/uL Immature Gran # (Auto) 0.07 (0.01-0.20) K/uL PT 12.3 H (9.0-12.0) Seconds INR 1.1 (0.9-1.1) APTT 26 (21-31) Seconds PTT Ratio 1.0 D-Dimer 1180 H* (0-500) ug/L FEU VBG pH 7.42 H (7.36-7.41) VBG pCO2 33 L (38-50) mmHg VBG pO2 55 mmHg VBG HCO3 21 mmol/L VBG O2 Saturation 88.9 % VBG Base Excess -2.2 mEq/L Sodium 138 (136-145) mmol/L Potassium 4.4 (3.5-5.1) mmol/L Chloride 105 (98-107) mmol/L Carbon Dioxide 22 (21-32) mmol/L Anion Gap 11 (3-11) BUN 18 (6-23) mg/dl Creatinine 1.12 (0.6-1.4) mg/dl Est Cr Clr Drug Dosing 72.1 ml/min Est GFR ( Amer) 78.4 ml/min Est GFR (Non-Af Amer) 67.6 ml/min BUN/Creatinine Ratio 16.1 (10-20) Glucose 108 H (70-99(Fasting)) mg/dl Calcium 10.2 (8.6-10.3) mg/dl Total Bilirubin 2.7 H (0.2-1.0) mg/dl AST 17 (13-39) U/L ALT 24 (7-52) U/L Alkaline Phosphatase 73 (34-104) U/L Troponin I High Sens 20.2 H 20.3 H (0-20) pg/ml B-Natriuretic Peptide 919 H (0-100) pg/ml Total Protein 7.1 (6.0-8.3) gm/dl Albumin 4.4 (3.4-5.0) gm/dl Globulin 2.7 (2.5-4.0) gm/dl Albumin/Globulin Ratio 1.6 (0.9-2) Urine Color Urine Appearance (Clear) Urine pH (4.5-7.5) Ur Specific [place] (1.000-1.030) Urine Protein (Negative) Urine Glucose (UA) (Negative) Urine Ketones (Negative) Urine Blood (Negative) Urine Nitrite (Negative) Urine Bilirubin (Negative) Urine Urobilinogen (Negative) Ur Leukocyte Esterase (Negative) Urine WBC (Auto) (0-5) /hpf Urine RBC (Auto) (0-2) /hpf U Hyaline Cast (Auto) (0-2) /lpf U Epithel Cells (Auto) (0-2) /hpf Urine Bacteria (Auto) (None Seen) Adenovirus (PCR) Not Detected (NotDetected) B. pertussis DNA (PCR) Not Detected (NotDetected) B.parapertussis DNA PCR Not Detected (NotDetected) C. pneumoniae DNA (PCR) Not Detected (NotDetected) Coronavirus OC43 (PCR) Not Detected (NotDetected) Coronavirus HKU1 (PCR) Not Detected (NotDetected) Coronavirus 229E (PCR) Not Detected (NotDetected) SARS-CoV-2 (PCR) Not Detected (NotDetected) Coronavirus NL63 (PCR) Not Detected (NotDetected) Human Metapneumovir PCR Not Detected (NotDetected) Influenza Type A (PCR) Not Detected (NotDetected) Influenza Type B (PCR) Not Detected (NotDetected) M. pneumoniae (PCR) Not Detected (NotDetected) Parainfluenza 1 (PCR) Not Detected (NotDetected) Parainfluenza 2 (PCR) Not Detected (NotDetected) Parainfluenza 3 (PCR) Not Detected (NotDetected) Parainfluenza 4 (PCR) Not Detected (NotDetected) RSV (PCR) Not Detected (NotDetected) Entero/Rhino (PCR) Not Detected (NotDetected) 11/21/23 Range/Units Unknown WBC (4.8-10.8) K/ul RBC (4.70-6.10) M/uL Hgb (14.0-18.0) g/dl Hct (42.0-52.0) % MCV (80.0-100.0) fL MCH (25.0-34.0) pg MCHC (32.0-36.0) g/dL RDW Std Deviation (36.4-46.3) fL RDW Coeff of Cyndie (11.5-14.5) % Plt Count (130-400) K/uL MPV (9.4-12.4) fL Immature Gran % (Auto) % Neut % (Auto) % Lymph % (Auto) % [place] % (Auto) % Eos % (Auto) % Baso % (Auto) % Neut # (Auto) (1.40-6.50) K/uL Lymph # (Auto) (1.20-3.40) K/uL [place] # (Auto) (0.11-0.59) K/uL Eos # (Auto) (0.00-0.50) K/uL Baso # (Auto) (0.00-0.20) K/uL Immature Gran # (Auto) (0.01-0.20) K/uL PT (9.0-12.0) Seconds INR (0.9-1.1) APTT (21-31) Seconds PTT Ratio D-Dimer (0-500) ug/L FEU VBG pH (7.36-7.41) VBG pCO2 (38-50) mmHg VBG pO2 mmHg VBG HCO3 mmol/L VBG O2 Saturation % VBG Base Excess mEq/L Sodium (136-145) mmol/L Potassium (3.5-5.1) mmol/L Chloride (98-107) mmol/L Carbon Dioxide (21-32) mmol/L Anion Gap (3-11) BUN (6-23) mg/dl Creatinine (0.6-1.4) mg/dl Est Cr Clr Drug Dosing ml/min Est GFR ( Amer) ml/min Est GFR (Non-Af Amer) ml/min BUN/Creatinine Ratio (10-20) Glucose (70-99(Fasting)) mg/dl Calcium (8.6-10.3) mg/dl Total Bilirubin (0.2-1.0) mg/dl AST (13-39) U/L ALT (7-52) U/L Alkaline Phosphatase (34-104) U/L Troponin I High Sens (0-20) pg/ml B-Natriuretic Peptide (0-100) pg/ml Total Protein (6.0-8.3) gm/dl Albumin (3.4-5.0) gm/dl Globulin (2.5-4.0) gm/dl Albumin/Globulin Ratio (0.9-2) Urine Color Yellow Urine Appearance Clear (Clear) Urine pH 5.5 (4.5-7.5) Ur Specific [place] 1.014 (1.000-1.030) Urine Protein 2+ H (Negative) Urine Glucose (UA) Negative (Negative) Urine Ketones Negative (Negative) Urine Blood Negative (Negative) Urine Nitrite Negative (Negative) Urine Bilirubin Negative (Negative) Urine Urobilinogen Negative (Negative) Ur Leukocyte Esterase Negative (Negative) Urine WBC (Auto) 0-5 (0-5) /hpf Urine RBC (Auto) 0-2 (0-2) /hpf U Hyaline Cast (Auto) 3-5 H (0-2) /lpf U Epithel Cells (Auto) 0-2 (0-2) /hpf Urine Bacteria (Auto) None Seen (None Seen) Adenovirus (PCR) (NotDetected) B. pertussis DNA (PCR) (NotDetected) B.parapertussis DNA PCR (NotDetected) C. pneumoniae DNA (PCR) (NotDetected) Coronavirus OC43 (PCR) (NotDetected) Coronavirus HKU1 (PCR) (NotDetected) Coronavirus 229E (PCR) (NotDetected) SARS-CoV-2 (PCR) (NotDetected) Coronavirus NL63 (PCR) (NotDetected) Human Metapneumovir PCR (NotDetected) Influenza Type A (PCR) (NotDetected) Influenza Type B (PCR) (NotDetected) M. pneumoniae (PCR) (NotDetected) Parainfluenza 1 (PCR) (NotDetected) Parainfluenza 2 (PCR) (NotDetected) Parainfluenza 3 (PCR) (NotDetected) Parainfluenza 4 (PCR) (NotDetected) RSV (PCR) (NotDetected) Entero/Rhino (PCR) (NotDetected) Administered Medications Discontinued Medications Furosemide (Furosemide 40 Mg/4 Ml Vial) 40 mg IV ONE ONE Stop: 11/21/23 20:27 Last Admin: 05/14/24 20:43 Dose: 40 mg Documented By: SARAH Ioversol (Optiray 320 125ml) 117 ml IV ONCE ONE Stop: 11/21/23 20:30 Last Admin: 11/21/23 20:29 Dose: 117 ml Documented By: CIRO Imaging Data Attestation: I personally reviewed and interpreted this imaging study as follows: My Impression: 1 view chest x-ray was obtained in the emergency department. My interpretation is no free air or definite infiltrate, final report below. Radiologist's Impression: Chest X-Ray 11/21/23 18:06 XR chest 1V portable CLINICAL HISTORY: Dyspnea. COMPARISON STUDY: Chest radiograph August 21, 2023. FINDINGS: Lung volumes are normal. Lungs are clear. There is no pneumothorax or pleural effusion. There is mild cardiomegaly pulmonary vascular congestion. IMPRESSION: Mild cardiomegaly with pulmonary vascular congestion. ACT 112: Negative or not required by law. Electronically signed by: Travis Flores M.D. 11/21/2023 6:49 PM Chest CTA 11/21/23 19:50 Exam(s): CTA CHEST IV Amt: 117 ml optiray 320 EXAM: CT Angiography Chest With Intravenous Contrast CLINICAL HISTORY: Reason for exam: PE. TECHNIQUE: Axial computed tomographic angiography images of the chest with intravenous contrast. CTDI is 28.14 mGy and DLP is 1092.32 mGy-cm. Automated exposure control was utilized for the study. A dose lowering technique was utilized adhering to the principles of ALARA. MIP reconstructed images were created and reviewed. COMPARISON: No relevant prior studies available. FINDINGS: Pulmonary arteries: Unremarkable. No pulmonary embolism. Aorta: No acute findings. No thoracic aortic aneurysm. Lungs: Unremarkable. No mass. No consolidation. Pleural space: Unremarkable. No significant effusion. No pneumothorax. Heart: Unremarkable. No cardiomegaly. No significant pericardial effusion. No evidence of RV dysfunction. Bones/joints: No acute fracture. No dislocation. Soft tissues: Unremarkable. Lymph nodes: Unremarkable. No enlarged lymph nodes. Intraperitoneal space: Trace abdominal ascites. IMPRESSION: No acute findings in the visualized arteries of the chest. Electronically signed by: Everardo Singh MD 11/21/23 21:00 PM Discharge Plan Visit Data Chief Complaint: Shortness of Breath/Dyspnea Stated Complaint: SOB, TROUBLE CATCHING BREATH WALKING ED Provider: Daquan Kirk Discharge Problem: Pulmonary edema, Elevated troponin I level, FORMAN (dyspnea on exertion) Patient Disposition: Being Evaluated by Hospitalist Forms Stand Alone Forms: My [facility] Prescriptions Prescriptions: No Action metformin 500 mg tablet 500 mg PO BID atorvastatin 20 mg tablet 20 mg PO HS aspirin 81 mg Tablet,Delayed Release (Dr/Ec) 81 mg PO HS (DME) pen needle, diabetic [Pen Needle] 32 gauge x 5/32" needle See Rx Instructions .Route Qty: 100 2RF Rx Instructions: As directed with lantus pen daily (DME) OneTouch Verio test strips Strip See Rx Instructions .Route Qty: 100 2RF Rx Instructions: Check blood sugars 3 times daily. (DME) lancets 33 gauge misc See Rx Instructions .Route Qty: 100 2RF Rx Instructions: Check blood sugars 3 times daily. lorazepam 1 mg tablet 1 mg PO DAILY PRN (Reason: Anxiety) metoprolol succinate 50 mg tablet extended release 24 hr 50 mg PO BID Rx Instructions: pt wants held until furter notice due to possibility of causing SOB lisinopril 40 mg tablet 40 mg PO HS Referrals Referrals: Scar Jones, PA-C [Primary Care Provider] - Discharge Problem: Pulmonary edema Qualifiers: Chronicity: acute Qualified Code(s): J81.0 - Acute pulmonary edema
[2023-11-21 19:11] LABS: Adenovirus PCR Not Detected (NotDetected); Bordetella parapertussis PCR Not Detected (NotDetected); Bordetella pertussis PCR Not Detected (NotDetected); Chlamydia pneumoniae PCR Not Detected (NotDetected); Coronavirus 229E PCR Not Detected (NotDetected); Coronavirus CoV-2 (COVID19)PCR Not Detected (NotDetected); Coronavirus HKU1 PCR Not Detected (NotDetected); Coronavirus NL63 PCR Not Detected (NotDetected); Coronavirus OC43PCR Not Detected (NotDetected); Human Metapneumovirus PCR Not Detected (NotDetected); Influenza A PCR Not Detected (NotDetected); Influenza B PCR Not Detected (NotDetected); Mycoplasma pneumoniae PCR Not Detected (NotDetected); Parainfluenza Virus 1 PCR Not Detected (NotDetected); Parainfluenza Virus 2 PCR Not Detected (NotDetected); Parainfluenza Virus 3 PCR Not Detected (NotDetected); Parainfluenza Virus 4 PCR Not Detected (NotDetected); Respiratory Syncytial VirusPCR Not Detected (NotDetected); Rhinovirus/Enterovirus PCR Not Detected (NotDetected); Troponin I High Sensitivity 20.2 pg/ml (0-20)
[2023-11-21 19:13] LABS: INR 1.1 (0.9-1.1); Partial Thromboplastin Time 26 Seconds (21-31); Prothrombin Time 12.3 Seconds (9.0-12.0)
[2023-11-21 19:16] LABS: D Dimer 1180 ug/L FEU (0-500)
[2023-11-21 20:03] LABS: Appearance Urine Clear (Clear); Bacteria Urine Automated None Seen (None Seen); Bilirubin Urine Negative (Negative); Blood Urine Negative (Negative); Color Urine Yellow; Epithelial Cell Urine Auto 0-2 /hpf (0-2); Glucose Urine UA Negative (Negative); Ketones Urine Negative (Negative); Leukocyte Esterase Urine Negative (Negative); Nitrite Urine Negative (Negative); Protein Urine 2+ (Negative); RBC Urine Automated 0-2 /hpf (0-2); Specific Gravity Urine 1.014 (1.000-1.030); Urobilinogen Urine Negative (Negative); WBC Urine Automated 0-5 /hpf (0-5); pH Urine 5.5 (4.5-7.5)
[2023-11-21 20:09] LABS: Base Excess VBG -2.2 mEq/L; HCO3 VBG 21 mmol/L; Oxygen Saturation VBG 88.9 %; PCO2 VBG 33 mmHg (38-50); PO2 VBG 55 mmHg; pH VBG 7.42 (7.36-7.41)
[2023-11-21] MEDS: OPTIRAY 320 125ml IV ONE (20:29)
[2023-11-21] MEDS: FUROSEMIDE 40 MG/4 ML VIAL IV ONE (20:43)
--- NOTE | 2023-11-21 21:01 | CT Scan Report ---
Exam(s): CTA CHEST IV Amt: 117 ml optiray 320 EXAM: CT Angiography Chest With Intravenous Contrast CLINICAL HISTORY: Reason for exam: PE. TECHNIQUE: Axial computed tomographic angiography images of the chest with intravenous contrast. CTDI is 28.14 mGy and DLP is 1092.32 mGy-cm. Automated exposure control was utilized for the study. A dose lowering technique was utilized adhering to the principles of ALARA. MIP reconstructed images were created and reviewed. COMPARISON: No relevant prior studies available. FINDINGS: Pulmonary arteries: Unremarkable. No pulmonary embolism. Aorta: No acute findings. No thoracic aortic aneurysm. Lungs: Unremarkable. No mass. No consolidation. Pleural space: Unremarkable. No significant effusion. No pneumothorax. Heart: Unremarkable. No cardiomegaly. No significant pericardial effusion. No evidence of RV dysfunction. Bones/joints: No acute fracture. No dislocation. Soft tissues: Unremarkable. Lymph nodes: Unremarkable. No enlarged lymph nodes. Intraperitoneal space: Trace abdominal ascites. IMPRESSION: No acute findings in the visualized arteries of the chest. Electronically signed by: Everardo Singh MD 11/21/23 21:00 PM
[2023-11-21 21:20] LABS: Troponin I High Sensitivity 20.3 pg/ml (0-20)
--- NOTE | 2023-11-21 21:23 | History & Physical Report ---
Date of Service November 21, 2023 Assessment & Plan (1) FORMAN (dyspnea on exertion): Plan: -Patient with dyspnea on exertion that has been going on for a couple months but has been getting progressively worse over the past month. -CBC mostly benign, did show a leukocytosis of 12.29, will monitor the morning labs. No signs of infection at this time. -Chest x-ray showed mild cardiomegaly with pulmonary vascular congestion. -D-dimer was elevated at 1180, CTA chest was negative for PE. -VBG with a pH of 7.42, pCO2 of 33. Currently requiring 2 L nasal cannula. Does not require any oxygen at home. -Follows with cardiology, [facility], last seen on 10/03/2023. It was recommended at that time that patient proceed with a cardiac catheterization to rule out obstructive coronary artery disease as a source of his ventricular tachycardia and reduced ejection fraction. It was also discussed with him that he would also need a implanted ICD. Patient was not agreeable to a cardiac catheterization or ICD implantation. - It was discussed that he can increase his metoprolol to 50 mg twice daily. However patient states that this caused FORMAN and chest pain. -Will reduce metoprolol to 25 mg twice daily given symptoms above and consult cardiology. -Will monitor on telemetry, CBC, CMP, lipid panel ordered in the a.m. -Will keep n.p.o. at this time in case of cardiac catheterization in the a.m. (2) Diastolic heart failure: Plan: - Echocardiogram on 09/28/2023 showed global hypokinesis with ejection fraction of 40-45% with at least a grade 2 diastolic dysfunction with possible grade 3. -No echo needed at this time. -BNP of 919 in the ED. -Received a spot dose of Lasix in the ED. Does not seem fluid overloaded at time of admission. Will hold off on any further Lasix at this time and reassess in the a.m. (3) Ventricular tachycardia (paroxysmal): Plan: -Seen previously during hospitalization and on event monitor. Follows with cardiology. Otherwise as above. (4) Elevated troponin I level: Plan: -Troponin of 20.2, repeat 2-hour show 20.3. -At admission will repeat in 6 hours. Patient without any current chest pain at this time. (5) Uncontrolled type 2 diabetes mellitus with hyperosmolar nonketotic hyperglycemia: Plan: - Hemoglobin A1c ordered in AM. - Patient's home regimen held on admission - Continue BSG checks, sliding-scale insulin, hypoglycemic protocol - N.p.o. at this time. (6) Hypertension: Plan: -Will continue home meds. Reduce metoprolol to 25 mg twice daily given chest pain and FORMAN. (7) Hypercholesterolemia: Plan: - Continue on atorvastatin 20 mg. - Lipid panel in the a.m. Plan Nutrition: N.p.o. Code status: Conditional DVT ppx: scds, possible cardiac catheterization in the morning. Consults: cardiology Dispo: Telemetry History of Present Illness Chief Complaint: Dyspnea on exertion Primary Care Provider: Scar Jones Patient is a 68-year-old male with past medical history of heart failure with reduced ejection fraction, hypertension, hyperlipidemia, episodes of ventricular tachycardia, and DM2 who presents to the hospital with dyspnea on exertion. Patient has been having shortness of breath on exertion for some time now and over the last week has been getting progressively worse. States that his metoprolol was changed from 25 mg twice daily to 50 mg twice daily and that every time he takes the 50 mg metoprolol he has shortness of breath and chest pain. It was recommended that patient have a cardiac catheterization by his admission discharge rn but he declined. He denies any lower extremity swelling, orthopnea, fever, chills, nausea, or vomiting. Patient currently does not have any shortness of breath at this time or chest pain. Allergies Allergy/AdvReac Type Severity Reaction Status Date / Time No Known Allergies Allergy Unknown Verified 11/21/23 20:15 Home Medications Medication Instructions Recorded Confirmed Type aspirin 81 mg tablet,delayed 81 mg PO HS 08/21/23 11/21/23 History release atorvastatin 20 mg tablet 20 mg PO HS 08/21/23 11/21/23 History metformin 500 mg tablet 500 mg PO BID 08/21/23 11/21/23 History blood sugar diagnostic (OneTouch #100 ea 08/23/23 11/21/23 Rx Verio test strips) lancets 33 gauge #100 ea 08/23/23 11/21/23 Rx pen needle, diabetic 32 gauge x #100 ea 08/23/23 11/21/23 Rx 5/32" (Pen Needle) lisinopril 40 mg tablet 40 mg PO HS 11/21/23 11/21/23 History lorazepam 1 mg tablet 1 mg PO DAILY PRN Anxiety 11/21/23 11/21/23 History metoprolol succinate 50 mg 50 mg PO BID 11/21/23 11/21/23 History tablet,extended release 24 hr Past Med/Surg History Problem List (Updated 11/22/23 @ 13:12 by Stephenie Perez MD) Heart failure with mildly reduced ejection fraction (HFmrEF) Ventricular tachycardia (paroxysmal) Diastolic heart failure FORMAN (dyspnea on exertion) (Acute) Elevated troponin I level (Acute) Pulmonary edema (Acute) Narrow complex tachycardia Uncontrolled type 2 diabetes mellitus with hyperosmolar nonketotic hyperglycemia Hypophosphatemia Morbid obesity with BMI of 40.0-44.9, adult URI (upper respiratory infection) Acute hyponatremia (Acute) Weakness (Acute) Acute hyperglycemia (Acute) Melena Hyponatremia Headache (Acute) Diverticulitis Medical History Type 2 diabetes mellitus Hyperosmolar hyperglycemic state (HHS) Hypercholesterolemia Hypertension Social History Smoking Status: Never smoker Tobacco Type: Smokeless Tobacco (Dip or Chew) Do You Dip or Chew Tobacco: Yes; Hx Alcohol Use: Yes Alcohol type: beer Hx Substance Use: No Preferred Language: Hebrew Communication Ability: Effective Restrictive Preparation Operator Required: No Beliefs That Will Affect Care: None Current Living Situation: Spouse Current Living Situation Comment: with Alethea Other Information That Helps Us Care for You: No Feels Safe at Home: Yes Safety Concerns: Feels Safe At This Time Assistive Devices: Glasses Review of Systems Review of Systems: All systems reviewed & are unremarkable except as noted in Subjective Physical Exam Physical Exam: Constitutional: well-appearing, no acute distress HEENT: NCAT, no conjunctival injection CV: regular rhythm, no murmur appreciated, extremities well-perfused, no LE edema Resp: CTABL, no wheezes/rales/rhonchi appreciated, no increased work of breathing GI: soft, nondistended, nontender, BS normoactive MSK: no gross deformities appreciated Skin: warm, dry, no rash appreciated Neuro: alert, oriented, no focal neurologic deficit appreciated Results & Data Results & Data Vital Signs (Past 12 Hours) Vital Signs Temp Pulse Pulse Resp BP BP Pulse Ox 11/21/23 19:43 82 17 139/101 H 94 11/21/23 18:54 94 H 11/21/23 18:44 20 96 11/21/23 18:44 11/21/23 18:03 36.8 C 93 H 16 151/110 H 97 O2 Del Method 11/21/23 19:43 Room Air 11/21/23 18:54 11/21/23 18:44 Room Air 11/21/23 18:44 Room Air 11/21/23 18:03 Room Air Supervising Physician Co-Signing Physician Notes Attending addendum: I have physically seen this patient, have supervised the medical residents activities, and agree with the H&P unless as otherwise noted. Assessment and Plan: Dyspnea on exertion/heart failure/paroxysmal ventricular tach cardia/declining ejection fraction- The patient will be admitted to telemetry for serial cardiac enzymes, serial EKG's, cardiac rhythm monitoring and a 2-D echocardiogram with Dopplers. Patient was advised to undergo cardiac catheterization and ICD placement at his last cardiology office visit on 10/03/2023, but he declined. Initial troponin 20.2 with follow-up 20.3 CT angiography negative for PE, ordered when D-dimer returned at 1180 BNP 919, received Lasix 40 mg IV from the ED Will consult cardiology to discuss with patient need for cardiac catheterization Continue aspirin, lisinopril, atorvastatin, metoprolol succinate as adjusted Check a fasting lipid panel and hemoglobin A1c Diabetes mellitus- Glucose 108 on admission Placed on Accu-Cheks with NovoLog SSI Hold metformin
[2023-11-21] MEDS ORDERED: GLUCOSE 10 TAB/TUBE PO PRN (23:33)
[2023-11-21] MEDS ORDERED: GLUCOSE 40% GEL 15 GM TUBE PO PRN (23:33)
[2023-11-21] MEDS ORDERED: CARBOHYDRATES FOR HYPOGLYCEMIA PO PRN (23:33)
[2023-11-21] MEDS ORDERED: NITROGLYCERIN SL 0.4 MG/TAB TAB SL PRN (23:33)
[2023-11-21] MEDS ORDERED: GLUCAGON FOR INJ 1 MG VIAL SQ PRN (23:33)
[2023-11-21] MEDS ORDERED: DEXTROSE 50% 50 ML SYRINGE IV PRN (23:33)
[2023-11-21] MEDS ORDERED: ONDANSETRON INJ 2 MG/ML 2 ML VIAL IV PRN (23:33)
[2023-11-21] MEDS: INSULIN ASPART PER UNIT CHARGE SC SCH (23:59)
[2023-11-22 01:48] LABS: Magnesium 1.9 mg/dl (1.7-2.4)
[2023-11-22 06:13] LABS: Basophils # (auto) 0.12 K/uL (0.00-0.20); Eosinophils % (auto) 1.6 %; Hematocrit (blood only) 46.6 % (42.0-52.0); Hemoglobin 15.3 g/dl (14.0-18.0); Immature Granulocytes # (auto) 0.07 K/uL (0.01-0.20); Immature Granulocytes % (auto) 0.6 %; Lymphocytes # (auto) 2.91 K/uL (1.20-3.40); Lymphocytes % (auto) 23.7 %; Mean Corpuscular Hemoglobin 27.2 pg (25.0-34.0); Mean Corpuscular Hgb Conc 32.8 g/dL (32.0-36.0); Mean Corpuscular Volume 82.8 fL (80.0-100.0); Mean Platelet Volume 11.1 fL (9.4-12.4); Monocytes # (auto) 1.04 K/uL (0.11-0.59); Monocytes % (auto) 8.5 %; Neutrophils # (auto) 7.94 K/uL (1.40-6.50); Neutrophils % (auto) 64.6 %; Platelet Count 213 K/uL (130-400); RDW Coefficient of Variation 13.9 % (11.5-14.5); RDW Standard Deviation 41.6 fL (36.4-46.3); Red Blood Count 5.63 M/uL (4.70-6.10); White Blood Count 12.28 K/ul (4.8-10.8)
[2023-11-22 06:23] LABS: Albumin Level 4.1 gm/dl (3.4-5.0); BUN Creatinine Ratio 17.7 (10-20); Bilirubin,Total 2.8 mg/dl (0.2-1.0); Calcium 9.5 mg/dl (8.6-10.3); Chol HDL Ratio 4.2 (0-5); Creatinine Clr Calc Pharmacy 66.8 ml/min; Est GFR (African American) 77.5 ml/min; Est GFR (Non-African American) 66.9 ml/min
[2023-11-22 06:30] LABS: Albumin Globulin Ratio 1.6 (0.9-2); Globulin 2.5 gm/dl (2.5-4.0); Total Protein 6.6 gm/dl (6.0-8.3); Troponin I High Sensitivity 20.6 pg/ml (0-20)
[2023-11-22 07:32] LABS: Estimated Average Glucose 146 mg/dl; Hemoglobin A1C 6.7 % (4.5-5.6)
[2023-11-22 08:23] LABS: Bilirubin Direct 0.4 mg/dl (0-0.2)
[2023-11-22] MEDS ORDERED: METOPROLOL SUCC 25MG EXT REL TAB PO SCH (09:00)
--- NOTE | 2023-11-22 09:39 | Cardiology Consultation ---
Date of Consultation November 22, 2023 History of Present Illness Reason for Consultation: CHF Attending Physician: Lupe Sutton DO History of Present Illness [id number] was admitted to the hospital with increasing shortness of breath. He did he notes he did have something more salty over the last number of days. He noted increasing shortness of breath walking up an incline and climbing a flight of stairs. He actually had to stop senior living. He denies any chest pain or chest pressure. He has no lightheadedness or dizziness. He had no lower extremity edema. He denies any increased abdominal distention. He is unaware of any palpitations or fluttering. He denies any presyncope or syncope. He has had no falls. He notes on higher doses of beta-blockers 50 mg of metoprolol twice a day he just felt more short of breath. The rest of review of systems is negative Allergies Allergy/AdvReac Type Severity Reaction Status Date / Time No Known Allergies Allergy Unknown Verified 11/21/23 20:15 Home Medications Medication Instructions Recorded Confirmed Type aspirin 81 mg tablet,delayed 81 mg PO HS 08/21/23 11/21/23 History release atorvastatin 20 mg tablet 20 mg PO HS 08/21/23 11/21/23 History metformin 500 mg tablet 500 mg PO BID 08/21/23 11/21/23 History blood sugar diagnostic (OneTouch #100 ea 08/23/23 11/21/23 Rx Verio test strips) lancets 33 gauge #100 ea 08/23/23 11/21/23 Rx pen needle, diabetic 32 gauge x #100 ea 08/23/23 11/21/23 Rx 5/32" (Pen Needle) lisinopril 40 mg tablet 40 mg PO HS 11/21/23 11/21/23 History lorazepam 1 mg tablet 1 mg PO DAILY PRN Anxiety 11/21/23 11/21/23 History metoprolol succinate 50 mg 50 mg PO BID 11/21/23 11/21/23 History tablet,extended release 24 hr Patient History Medical History Type 2 diabetes mellitus Hyperosmolar hyperglycemic state (HHS) Hypercholesterolemia Hypertension Social History Smoking Status: Never smoker Tobacco Type: Smokeless Tobacco (Dip or Chew) Do You Dip or Chew Tobacco: Yes; Hx Alcohol Use: Yes Alcohol type: beer Hx Substance Use: No Preferred Language: Spanish Communication Ability: Effective Integration Architect Required: No Beliefs That Will Affect Care: None Current Living Situation: Spouse Current Living Situation Comment: with Alethea Other Information That Helps Us Care for You: No Feels Safe at Home: Yes Safety Concerns: Feels Safe At This Time Assistive Devices: Glasses Results & Data Vital Signs (Past 12 Hours) Vital Signs Temp Pulse Pulse Resp BP BP Pulse Ox 11/22/23 08:01 36.4 C L 76 19 151/101 H 95 11/22/23 02:55 36.5 C 76 18 127/88 91 11/21/23 23:31 86 11/21/23 23:28 36.8 C 85 16 139/103 H 98 11/21/23 22:33 82 19 134/88 94 11/21/23 21:55 86 20 166/104 H 97 11/21/23 21:54 86 L O2 Del Method O2 Flow Rate 11/22/23 08:01 Room Air 11/22/23 02:55 Room Air 11/21/23 23:31 11/21/23 23:28 Room Air 11/21/23 22:33 Nasal Cannula 2 11/21/23 21:55 Nasal Cannula 2 11/21/23 21:54 Room Air He is awake alert and oriented x 3 in no acute distress HEENT: 1+ carotid upstrokes no evidence of carotid bruits Lungs: Clear to auscultation bilaterally no rales rhonchi or wheezing Heart: Regular rate and rhythm no appreciable murmurs rubs or gallops Abdomen: Soft chronically distended positive bowel sounds nontender Extremities: No clubbing cyanosis or edema Psychiatric: His affect is appropriate Impressions: 1. Acute on chronic systolic heart failure 2. Family history of TTN cardiomyopathy 3. Presumed nonischemic cardiomyopathy with ejection fraction range of 45% 4. Both inpatient and outpatient monitoring with runs of nonsustained VT up to a minute in duration. 12 beat run of nonsustained VT today at about 158 bpm (asymptomatic) 5. Diabetes mellitus type 2 6. Hyperlipidemia 7. Hypertension As I discussed with him I think we need to define his coronary anatomy first given his hypertension and diabetes. In all likelihood his cardiomyopathy represents a TTN cardiomyopathy. He has not had formal genetic testing but it is very prevalent in his family. Discussed the risk and benefits of cardiac catheterization. Risk including but not limited to bleeding or infection at the puncture site. Damage to his radial or femoral artery. Risk of contrast-induced nephropathy. Allergic reaction to contrast and another 1 in 10,000 risk of heart attack stroke or dying with the procedure were discussed. He is n.p.o. currently. His metformin is on hold. I would stop his lisinopril and will need to washout over the next 36 hours from the last dose. Once it has we can initiate mid dose Entresto with the intention of uptitrating it. He likely will qualify for Entresto at a reduced dose as he does not make enough money. He will qualify for 30 days free when he leaves which would allow us enough time to get his Entresto approved through the company. I would also add spironolactone 25 mg to his medical regimen to help control his volume status and suppress his renin angiotensin system. He is having runs of nonsustained VT and technically his episode where he had a minute of VT is sustained ventricular arrhythmias. In light of this we discussed a defibrillator. I think he will decide to proceed with this admission. We discussed the defibrillator would not make him feel better but will reduce the risk of sudden cardiac . Additionally his QTc is mildly prolonged. His QRS is narrow and therefore there is no indication at this point for a biventricular defibrillator. Given the need for increasing doses of beta- blockers if possible I would place a dual-chamber ICD. We will consult the EP service once he knows the results of his Station. This was discussed with the Card Brusher as well as primary service.
--- NOTE | 2023-11-22 09:51 | Hospitalist Progress Note ---
Date of Service November 22, 2023 Assessment & Plan (1) FORMAN (dyspnea on exertion): Plan: Patient with progressive SOB and FORMAN over the last few months. CXR with cardiomegaly and pulmonary vascular congestion. D-dimer elevated. CTA PE without signs of VTE. Does have cardiology f/u as he has HFmrEF and ventricular tachycardia. Previously declined cath and ICD placement. Patient notes having FORMAN and CP with metoprolol. Amenable to this now. Plan for cath today and ICD placement in the near future. cath today, plan for ICD placement during hospital stay (EP consult placed) would initiate GDMT as tolerated - spironolactone, Entresto, increased beta- blockade etc HbA1c - 6.7, LDL 64 cards consulted - appreciate recs (2) Heart failure with mildly reduced ejection fraction (HFmrEF): Plan: Echocardiogram on 09/28/2023 showed global hypokinesis with ejection fraction of 40-45% with at least a grade 2 diastolic dysfunction with possible grade 3. BNP of 919 in the ED. Received a spot dose of Lasix in the ED. Hold on further Lasix for now. (3) Diastolic heart failure: Plan: See above (4) Ventricular tachycardia (paroxysmal): Plan: -Seen previously during hospitalization and on event monitor. Follows with cardiology. Otherwise as above. (5) Elevated troponin I level: Plan: Trop stable at around 20. (6) Uncontrolled type 2 diabetes mellitus with hyperosmolar nonketotic hyperglycemia: Plan: Patient's home regimen held on admission. Continue BSG checks, sliding-scale insulin, hypoglycemic protocol. HbA1c 6.7%. (7) Hypercholesterolemia: Plan: Continue on atorvastatin 20 mg. LDL < 70 Plan Nutrition: heart healthy, NPO at midnight for possible ICD placement Code status: Conditional DVT ppx: scds, cardiac catheterization today Consults: cardiology Dispo: Telemetry Admission and Anticipated Discharge Date Admission Date: November 21, 2023 Supervising Physician Co-Signing Physician Notes I personally examined the patient and verified nash points of history and exam, discussed case, and agree with decision making and plan documented by Dr. Perez. Evaluated patient's status post cardiac catheterization today. He denied any worsening shortness of breath or chest pain, patient was resting comfortably, anterior auscultation of lung trujillo were clear, heart and regular rate and rhythm, no abdominal tenderness appreciated. VSS. Reviewed with patient that he has been reluctant to pursue treatment, he seems to be open to cardiology recommendations at present. We discussed quality of life in setting of nonischemic cardiomyopathy and consideration of dual-chamber ICD is recommended which patient seems to be supportive of at this time. Subjective Patient seen at bedside this AM. Dyspnea improved. On RA. Patient with progressive FORMAN. No angina. Review of Systems 2 Review of Systems: See HPI Physical Exam 2 Physical Exam: Gen: well appearing patient in NAD HEENT: AT NC MMM Resp: CTAB no wheezing no increased work of breathing CV: RRR no m/r/g clinically well perfused Abd: non-distended MSK: no obvious deformities Skin: no rashes or bruising Neuro: alert and oriented Psych: appropriate mood and affect Results & Data Results & Data Vital Signs (Past 12 Hours) Vital Signs Temp Pulse Pulse Resp BP BP Pulse Ox 11/22/23 08:01 36.4 C L 76 19 151/101 H 95 11/22/23 02:55 36.5 C 76 18 127/88 91 11/21/23 23:31 86 11/21/23 23:28 36.8 C 85 16 139/103 H 98 11/21/23 22:33 82 19 134/88 94 11/21/23 21:55 86 20 166/104 H 97 11/21/23 21:54 86 L O2 Del Method O2 Flow Rate 11/22/23 08:01 Room Air 11/22/23 02:55 Room Air 11/21/23 23:31 11/21/23 23:28 Room Air 11/21/23 22:33 Nasal Cannula 2 11/21/23 21:55 Nasal Cannula 2 11/21/23 21:54 Room Air Laboratory Results 11/22/23 05:30 11/22/23 05:30 Diagnostic Findings Chest X-Ray 11/21/23 18:06 FINDINGS: Lung volumes are normal. Lungs are clear. There is no pneumothorax or pleural effusion. There is mild cardiomegaly pulmonary vascular congestion. IMPRESSION: Mild cardiomegaly with pulmonary vascular congestion. Chest CTA 11/21/23 19:50 FINDINGS: Pulmonary arteries: Unremarkable. No pulmonary embolism. Aorta: No acute findings. No thoracic aortic aneurysm. Lungs: Unremarkable. No mass. No consolidation. Pleural space: Unremarkable. No significant effusion. No pneumothorax. Heart: Unremarkable. No cardiomegaly. No significant pericardial effusion. No evidence of RV dysfunction. Bones/joints: No acute fracture. No dislocation. Soft tissues: Unremarkable. Lymph nodes: Unremarkable. No enlarged lymph nodes. Intraperitoneal space: Trace abdominal ascites. IMPRESSION: No acute findings in the visualized arteries of the chest. Resident Activity Tracking Resident Involvement: Resident Care Provided Care Provided: Adult [facility] Medicine
--- NOTE | 2023-11-22 11:09 | Pre Anesthesia Assessment ---
Date of Service November 22, 2023 Pre Sedation Assessment Vital Signs Temp Pulse Pulse Resp BP BP BP 11/22/23 10:53 36.6 C 86 16 156/105 H 11/22/23 08:01 36.4 C L 76 19 151/101 H 11/22/23 02:55 36.5 C 76 18 127/88 11/21/23 23:31 86 11/21/23 23:28 36.8 C 85 16 139/103 H 11/21/23 22:33 82 19 134/88 11/21/23 21:55 86 20 166/104 H 11/21/23 21:54 11/21/23 19:43 82 17 139/101 H 11/21/23 18:54 94 H 11/21/23 18:44 20 11/21/23 18:44 11/21/23 18:03 36.8 C 93 H 16 151/110 H Pulse Ox O2 Del Method O2 Flow Rate 11/22/23 10:53 90 Room Air 11/22/23 08:01 95 Room Air 11/22/23 02:55 91 Room Air 11/21/23 23:31 11/21/23 23:28 98 Room Air 11/21/23 22:33 94 Nasal Cannula 2 11/21/23 21:55 97 Nasal Cannula 2 11/21/23 21:54 86 L Room Air 11/21/23 19:43 94 Room Air 11/21/23 18:54 11/21/23 18:44 96 Room Air 11/21/23 18:44 Room Air 11/21/23 18:03 97 Room Air Cardiovascular RRR, no murmur, no edema Respiratory normal respiratory effort, lungs clear to auscultation Pre-Sedation Airway Assessment Smoking Status: Never smoker Hx Sleep Apnea: No Short, Thick Neck: No Thyromental Distance: > or= 3.5 Finger Breadths Oral Cavity: + Dentures Mallampati Class: III ASA: ASA3 NPO Status Date of Last Intake of Fluids: 11/21/23 Time of Last Intake of Fluids: 21:00 Date of Last Intake of Solid Food: 11/21/23 Time of Last Intake of Solid Foods: 21:00 Notes The planned sedation has been discussed with the patient. Informed Consent was obtained. I have identified the patient, determined the appropriateness of sedation and have assessed the patient immediately prior to the procedure. All medicine(s) and interventions are by my order.
--- NOTE | 2023-11-22 11:49 | Electrocardiogram Report ---
Test Reason : Blood Pressure : / mmHG Vent. Rate : 093 BPM Atrial Rate : 093 BPM P-R Int : 174 ms QRS Dur : 088 ms QT Int : 378 ms P-R-T Axes : 062 -55 057 degrees QTc Int : 469 ms Normal sinus rhythm Possible Left atrial enlargement Left axis deviation Abnormal ECG When compared with ECG of 23-AUG-2023 14:36, Premature ventricular complexes are no longer Present Criteria for Septal infarct are no longer Present Confirmed by Riccardo Rangel ([id number]) on 11/22/2023 11:49:04 AM Referred By: REFERRED SELF Confirmed By:Celestino Rangel
--- NOTE | 2023-11-22 11:53 | Electrocardiogram Report ---
Test Reason : Blood Pressure : / mmHG Vent. Rate : 079 BPM Atrial Rate : 079 BPM P-R Int : 188 ms QRS Dur : 094 ms QT Int : 436 ms P-R-T Axes : 079 -43 062 degrees QTc Int : 499 ms Normal sinus rhythm Left axis deviation Nonspecific ST abnormality Abnormal ECG When compared with ECG of 21-NOV-2023 18:09, (unconfirmed) No significant change was found Confirmed by Riccardo Rangel ([id number]) on 11/22/2023 11:52:56 AM Referred By: REFERRED SELF Confirmed By:Celestino Rangel
[2023-11-22] MEDS: MIDAZOLAM HCL 1 MG/ML 2ML VIAL ONE (12:10)
[2023-11-22] MEDS: fentaNYL citrate PF 100 MCG/2 ML VIAL ONE (12:11)
[2023-11-22] MEDS: niCARdipine HCL INJ 2.5 MG/ML 10 ML AMP ONE (12:11)
[2023-11-22] MEDS: NITROGLYCERIN/D5W 100MCG/ML 20ML SYR ONE (12:12)
[2023-11-22] MEDS: OPTIRAY 350 ONE (12:12)
[2023-11-22] MEDS: hydrALAZINE HCL 20 MG/ML VIAL ONE (12:12)
[2023-11-22 12:19] LABS: iSTAT Arterial Blood Gas HCO3 24 meg/L (19-24); iSTAT Arterial Blood Gas pCO2 36 mmHg (35-46); iSTAT Arterial Blood Gas pH 7.43 (7.35-7.45); iSTAT Arterial Blood Gas pO2 38 mmHg (80-95); iSTAT Carbon Dioxide 25 mmol/L (24-31); iSTAT Hematocrit 48 % (42-52); iSTAT Hemoglobin 16.3 g/dl (14.0-18.0); iSTAT Potassium 3.9 mmol/L (3.3-5.0); iSTAT Sodium 141 mmol/L (135-144)
[2023-11-22 12:20] LABS: iSTAT Arterial Blood Gas HCO3 25 meg/L (19-24); iSTAT Arterial Blood Gas pCO2 37 mmHg (35-46); iSTAT Arterial Blood Gas pH 7.43 (7.35-7.45); iSTAT Arterial Blood Gas pO2 37 mmHg (80-95); iSTAT Carbon Dioxide 26 mmol/L (24-31); iSTAT Hematocrit 48 % (42-52); iSTAT Hemoglobin 16.3 g/dl (14.0-18.0); iSTAT Potassium 3.9 mmol/L (3.3-5.0); iSTAT Sodium 141 mmol/L (135-144)
[2023-11-22 12:20] LABS: iSTAT Arterial Blood Gas HCO3 22 meg/L (19-24); iSTAT Arterial Blood Gas pCO2 33 mmHg (35-46); iSTAT Arterial Blood Gas pH 7.44 (7.35-7.45); iSTAT Arterial Blood Gas pO2 87 mmHg (80-95); iSTAT Carbon Dioxide 23 mmol/L (24-31); iSTAT Hematocrit 47 % (42-52); iSTAT Potassium 3.9 mmol/L (3.3-5.0); iSTAT Sodium 141 mmol/L (135-144)
--- NOTE | 2023-11-22 12:36 | Post Anesthesia Assessment ---
Date of Service November 22, 2023 Post Sedation Assessment Vital Signs Temp Pulse Pulse Resp BP BP BP 11/22/23 12:50 36.6 C 85 17 121/84 11/22/23 12:29 66 16 143/100 H 11/22/23 10:53 36.6 C 86 16 156/105 H 11/22/23 08:01 36.4 C L 76 19 151/101 H 11/22/23 02:55 36.5 C 76 18 127/88 11/21/23 23:31 86 11/21/23 23:28 36.8 C 85 16 139/103 H 11/21/23 22:33 82 19 134/88 11/21/23 21:55 86 20 166/104 H 11/21/23 21:54 11/21/23 19:43 82 17 139/101 H 11/21/23 18:54 94 H 11/21/23 18:44 20 11/21/23 18:44 11/21/23 18:03 36.8 C 93 H 16 151/110 H Pulse Ox O2 Del Method O2 Flow Rate 11/22/23 12:50 97 Room Air 11/22/23 12:29 95 Room Air 11/22/23 10:53 90 Room Air 11/22/23 08:01 95 Room Air 11/22/23 02:55 91 Room Air 11/21/23 23:31 11/21/23 23:28 98 Room Air 11/21/23 22:33 94 Nasal Cannula 2 11/21/23 21:55 97 Nasal Cannula 2 11/21/23 21:54 86 L Room Air 11/21/23 19:43 94 Room Air 11/21/23 18:54 11/21/23 18:44 96 Room Air 11/21/23 18:44 Room Air 11/21/23 18:03 97 Room Air Recovery Score Activity: Moves 4 extremities Respiration: Deep Breath/Cough Circulation: +/-20% PreAnes Value Consciousness: Fully Awake Oxygen Saturation: > 92% On Room Air Discharge Sedation Level of Care: Fast Track Phase II Post Sedation Plan On clinical assessment, the patient appears to have tolerated the sedation without complications. Patient is recovering as anticipated. Patient will continue to be monitored by nursing and may be discharged when sedation discharge criteria are met per below protocol. Upon Completions of procedure up to 15 minutes continue every 5 minute vital signs and the P.A.R. score; then discharge to a Phase I or Fast Track to Phase II per the following guidelines: * Discharge Patient to appropriate Phase II area if PAR is 8 or greater or return to pre- procedure baseline. The post - procedure orders will be as directed. * If PAR score is less than 8 or not return to pre-procedure baseline then patient will follow Phase I monitoring till PAR is reached for Phase II. The Phase I may be done in procedure room or may call to secure a Phase I area. * If naloxone or flumazenil are used for reversal, hold in Phase I for continued monitoring from when last reversal dose was given for a minimum of 60 minutes or longer pending the nurse and/or physician discretion of patient condition before discharge to Phase II. Please call the Sedation Physician to re-evaluate and complete post-note for discharge to Phase II area. Do NOT discharge from procedure sedation or Phase 1 until post- sedation evaluation note is complete by procedure /sedation MD Sedation Discharge Instructions to be given to the patient at discharge to home. [facility] Procedure Codes (Charges) Indication for Procedure Indication for procedure: CARDIOMYOPATHY Sedation/Anesthesia Procedure 1: Sedation/Anesthesia: 32431 Mod Sedation by the same physician;Init15 Min Child Age 5 & Up (start 1128) Total Sedation Time (minutes): 44 Procedure 2: Sedation/Anesthesia: 58720 Mod Sedation by the same physician; Ea [id number] Minutes (additional 29 min, end 1212) Total Sedation Time (minutes): 44
[2023-11-22] MEDS: HEPARIN (PORCINE) 1000 UNIT/ML 10 ML (CATH LAB USE ONLY) ONE (12:57)
--- NOTE | 2023-11-22 13:29 | Cardiac Catheterization ---
[facility] Data: Applications Manager Cardiac Status Clinical evaluation leading to the procedure CAD Presenation: Sx unlikely to be ischemic Anginal Classification: CCS IV (Dyspnea) Heart Failure: NYHA Class: CCS IV Cardiogenic Shock within 24 Hours: No Cardiac Arrest within 24 Hours: No Imaging Studies Past 6 Months: Yes Stress Studies Past 6 Months: No Coronary Anatomy Dominant: Right Left Main (% Stenosis): Distal (20%) LAD (% Stenosis): Mid (30 to 40%) D1 (% Stenosis): Ostial (20) D2 (% Stenosis): Normal D3 (% Stenosis): Normal Circumflex (% Stenosis): Normal OM1 (% Stenosis): Normal OM2 (% Stenosis): Normal RCA (% Stenosis): Normal R PDA (% Stenosis): Normal R PL1 (% Stenosis): Normal Ramus (% Stenosis): Normal Diagnostic Physicians Name: Vaibhav Edmond MD, PhD Closure Device Percutaneous Entry Location: Radial Closure Device: Radial Band Recommendations: Medical Therapy and/or Counseling Cardiac Cath Procedure Full Procedure Date November 22, 2023 Pre-Procedure Diagnosis Pre-Procedure Diagnosis: Cardiomyopathy AUC Score AUC Score: 07 Post-Procedure Diagnosis Post-Procedure Diagnosis: Normal Coronary Arteries and Elevated Intracardiac Pressures Procedure(s) Performed Procedure(s) Performed: Coronary Angiography, Right Heart Cath and Ultrasound Guided Vascular Access Party Bus Driver Vaibhav Edmond MD, PhD Estimated Blood Loss Estimated Blood Loss: 10 cc Medication(s) Medication(s): Fentanyl, Lidocaine 1%, Nicardipine, Nitroglycerin and Versed Summary of Findings Brief description: Patient was brought to the cardiac catheterization suite where he was shaved and prepped in a sterile fashion. Sedated using IV Versed and fentanyl. Soft tissues of the right wrist were anesthetized using 2 mL of 1% Xylocaine. The right radial artery was accessed using a modified Seldinger technique and a 6 [place] radial artery glide sheath was placed. Patient was provided antispasmodics including nicardipine and nitroglycerin. All catheters for coronary angiography and left heart cath were performed using a 0.035 J-tip wire. Left coronary angiography in orthogonal views with a 5 [place] 4 diagnostic cath. Right coronary angiography with a 5 [place] 4 diagnostic catheter. (Note, we failed to "fluoroscopy save" images) Attempted left heart cath with 5 [place] pigtail catheter. Unable to cross valve. Patient had indwelling large bore right antecubital fossa vein IV. However, we were unable to exchange for a venous sheath. Therefore, we utilized right IJ access following coronary angiography. Soft tissues of the right neck were anesthetized using 2 mL of 1% Xylocaine. Using the ultrasound for guidance, the right internal jugular was visualized and then accessed with a micropuncture kit. A micropuncture sheath was then exchanged over a 0.035 wire for the 6 [place] venous sheath. [place]-Sandra catheter was advanced through the sheath and the balloon was then inflated. Under fluoroscopic guidance it was directed through the right atrium, right ventricle, and then across the pulmonic valve into the pulmonary artery where it was terminally positioned in the "wedge position". Pulmonary capillary wedge pressure was then measured. The balloon was deflated and pulmonary arterial pressure and oxygen saturation were obtained. Catheter was then pulled back into the right ventricle where right ventricular hemodynamics were measured. Finally, catheter was pulled into the right atrium or right atrial pressure and mixed venous oxygen saturation were obtained. Catheter was then removed from the patient. The cardiac output and index were determined by the method of Galindo. Radial artery sheath was removed and hemostasis was obtained using the TR band. IJ sheath was then removed and hemostasis was obtained using manual compression. Patient was hemodynamically stable and asymptomatic. He was returned to the recovery area. This ended the case. Right heart cath findings: PCWP-34 mmHg PAP-64/45 mmHg RVP-64/11 mmHg RAP-25 mmHg AO O2 sat-97% PA O2 sat-73% RA O2 sat-73% CO (Galindo): 5.99 L/min CI (Galindo): 2.98 L/min/m PVR-3.01 Chappell units SVR-15.37 Chappell units PVR-19.54 Chappell units Coronary angiography findings: FTO-tqujq-fukmowr trifurcating into LAD, ramus, and circumflex. Distal 20% stenosis. ZGW-icbvu-syshulj and transapical. Gives a large branching first diagonal and a medium caliber second diagonal followed by a small caliber third diagonal. Proximal LAD without disease. Mid vessel with 30 to 40% focal stenosis. First diagonal has an ostial 20% stenosis. The remainder of the LAD and its branches have no angiographically evident disease. Ramus-small to medium caliber without significant disease. JAe-xcnpb-kraryjn and nondominant. Travels in the AV groove. It gives a small caliber OM1 followed by a large branching OM 2. No angiographically evident disease in the circumflex or its branches. DOP-nxfmc-foxsmul and dominant. Branches into PDA and posterolateral branch. No angiographically significant disease. Summary: 1. No significant occlusive coronary disease. Therefore, the patient has nonischemic cardiomyopathy. 2. Right heart cath demonstrates normal cardiac output and index. Elevated intracardiac pressures including wedge pressure, PA pressure, RV pressure, and RA pressure. 3. Patient needs additional diuresis based on right heart cath. Guideline directed medical therapy for acute on chronic systolic heart failure. Primary human services manager to determine regimen. Hemodynamics Rest Ao:: 133/97 mmHg Final Ao: 152/91 mmHg LV: Not performed Recommendations Recommendations: Medical Therapy and/or Counseling Radiation Exposure (mGy) 1047 mGy, fluoroscopy time 5.3 minutes Contrast (mls) 34 mL Anesthesia 25 mcg fentanyl, 1 mg Versed IV. Start 1128, end 1212 Procedural Complication(s) None Disposition Applications Manager Holding/Recovery I attest to the content of the Intraoperative Record and any orders documented therein. Any exceptions are noted below. [facility] Card Cath Procedure Codes Cardiac Catheterization Procedure 1: Cardiovascular Cath Procedures: 13515 Coronaries and RHC Therapeutic Services & Ancillary Procedure 1: Cardiovascular Tx and Anc Procedures: 88240 Ultrasonic Guidance Vascular Access Moderate Sedation Procedure 1: Sedation/Anesthesia: 30057 Mod Sedation by the same physician;Init15 Min Child Age 5 & Up (Initial 15 min, start time 1128) Procedure 2: Sedation/Anesthesia: 60498 Mod Sedation by the same physician; Ea [id number] Minutes (Additional 29 min, end time 1212) PG Care Time/CCT Total # of Minutes Spent Total Time Spent with Patient: Total time spent is greater than 50% in coordination of care (as documented) at patient's floor/unit and/or counseling patient:
[2023-11-22] MEDS: FUROSEMIDE 40 MG/4 ML VIAL IV ONE (14:57)
--- NOTE | 2023-11-22 16:37 | Cardiology Consultation ---
Date of Consultation November 22, 2023 Assessment & Plan (1) Heart failure with mildly reduced ejection fraction (HFmrEF): (2) Ventricular tachycardia (paroxysmal): Plan 1. Nonischemic cardiomyopathy: The outpatient setting he was noted to have reduced LV function of an intermediate degree. His medical regimen is being adjusted to include more aggressive therapy. He did present with some element of decompensation. Possibly familial cardiomyopathy. 2. Ventricular tachycardia: Outpatient recordings revealed monomorphic ventricular tachycardia. Relatively slow rate but extended in duration. I think this represents an independent indication for an ICD. I did discuss the risks, benefits and alternatives with the patient and his family. They are willing to proceed. This would be placed for secondary prevention. We will place a dual-chamber device as he may require some rates support as medications are increased. No indication for COOK STATION. History of Present Illness Reason for Consultation: Ventricular tachycardia Requesting Physician: Leticia Attending Physician: Lupe Sutton, History of Present Illness The patient is a 68-year-old gentleman with a known cardiomyopathy who presented to the hospital with worsening dyspnea. He was felt to have an element of pulmonary vascular congestion decompensated heart failure. During this hospitalization the patient did undergo coronary angiography in order to exclude coronary disease as the etiology of his reduced LV systolic function. There is a family history of cardiomyopathy. Outpatient monitoring also revealed episodes of ventricular tachycardia some lasting over 1 minute. The patient does report occasional symptoms of transient dizziness and lightheadedness. He can not recall a recent episode of syncope. No exertional chest pain. At time my interview actually feeling well without dyspnea. Allergies Allergy/AdvReac Type Severity Reaction Status Date / Time No Known Allergies Allergy Unknown Verified 11/21/23 20:15 Home Medications Medication Instructions Recorded Confirmed Type aspirin 81 mg tablet,delayed 81 mg PO HS 08/21/23 11/21/23 History release atorvastatin 20 mg tablet 20 mg PO HS 08/21/23 11/21/23 History metformin 500 mg tablet 500 mg PO BID 08/21/23 11/21/23 History blood sugar diagnostic (OneTouch #100 ea 08/23/23 11/21/23 Rx Verio test strips) lancets 33 gauge #100 ea 08/23/23 11/21/23 Rx pen needle, diabetic 32 gauge x #100 ea 08/23/23 11/21/23 Rx 5/32" (Pen Needle) lorazepam 1 mg tablet 1 mg PO DAILY PRN Anxiety 11/21/23 11/21/23 History metoprolol succinate 50 mg 50 mg PO BID 11/21/23 11/21/23 History tablet,extended release 24 hr furosemide 40 mg tablet 40 mg PO QAM 30 days #30 tabs 11/24/23 Rx sacubitril 49 mg-valsartan 51 mg 1 tab PO BID 30 days #60 tabs 11/24/23 Rx tablet (Entresto) spironolactone 25 mg tablet 25 mg PO QAM 30 days #30 tabs 11/24/23 Rx Patient History Medical History Type 2 diabetes mellitus Hyperosmolar hyperglycemic state (HHS) Hypercholesterolemia Hypertension Social History Smoking Status: Never smoker Tobacco Type: Smokeless Tobacco (Dip or Chew) Do You Dip or Chew Tobacco: Yes; Hx Alcohol Use: Yes Alcohol type: beer Hx Substance Use: No Preferred Language: Spanish Communication Ability: Effective Slotter Operator Helper Required: No Beliefs That Will Affect Care: None Current Living Situation: Spouse Current Living Situation Comment: with Alethea Feels Safe at Home: Yes Assistive Devices: Glasses Review of Systems Review of Systems: Per HPI Physical Exam Physical Exam: The patient is alert and oriented. Mood and affect appeared normal. He answered all questions appropriately. HEENT: Pupils are equal and reactive to light and accommodation. Extraocular movements are intact. The sclerae are anicteric. Neuro: Cranial nerves intact Lungs: Clear to auscultation bilaterally. He has good air movement without use of accessory muscles. No rales wheezes or rhonchi. Cardiac: Heart demonstrates a regular rate and rhythm. Normal S1 and S2. No murmurs on examination. Pulses: The patient has palpable radial pulses bilaterally that are equal in intensity Extremities: There was no evidence of hypoperfusion. There is no cyanosis or clubbing. There is no edema. Good perfusion of the right hand Skin: I did not appreciate any rashes on examination today. Results & Data Vital Signs (Past 12 Hours) Vital Signs Temp Pulse Resp BP BP Pulse Ox O2 Del Method 11/22/23 15:45 36.6 C 90 17 130/80 98 Room Air 11/22/23 14:45 36.6 C 87 18 125/75 97 Room Air 11/22/23 13:45 36.7 C 90 16 140/70 95 Room Air 11/22/23 13:15 36.7 C 80 17 130/74 96 Room Air 11/22/23 12:50 36.6 C 85 17 121/84 97 Room Air 11/22/23 12:29 66 16 143/100 H 95 Room Air 11/22/23 10:53 36.6 C 86 16 156/105 H 90 Room Air 11/22/23 08:01 36.4 C L 76 19 151/101 H 95 Room Air Diagnostic Findings Coronary angiography performed 11/22/2023: No significant coronary disease. Right heart catheterization performed at the same time revealed elevated intracardiac wedge pressure and PA pressure. PG Care Time/CCT Total # of Minutes Spent Total Time Spent with Patient: Total time spent is greater than 50% in coordination of care (as documented) at patient's floor/unit and/or counseling patient: Coding Level of Care Code 02539 INT INP/OBS CARE 3/75MIN Diagnoses Heart failure with mildly reduced ejection fraction (HFmrEF) I50.22 Ventricular tachycardia (paroxysmal) I47.29
[2023-11-22] MEDS: INSULIN ASPART PER UNIT CHARGE SC SCH (17:05)
--- NOTE | 2023-11-22 19:30 | Billing Data ---
Date of Service November 22, 2023 Coding Level of Care Code 32348 INT INP/OBS CARE
[2023-11-22] MEDS: ASPIRIN 81 MG ECTAB PO SCH (20:19)
[2023-11-22] MEDS: ACETAMINOPHEN 325 MG TAB PO PRN (20:19)
[2023-11-22] MEDS: ATORVASTATIN 20 MG TAB PO SCH (20:19)
[2023-11-22] MEDS: VALSARTAN/SACUBITRIL 51/49 MG TAB PO SCH (20:20)
[2023-11-22] MEDS ORDERED: lisinopril 40 MG TAB PO SCH (21:00)
--- OUTSIDE RECORDS SUMMARY | 2023-11-22 21:38 | External Medical Summary | Continuity of Care Document ---
Author Name Unknown Organization [facility] [address] Address [address] [place], [place] [id number] Care Team Providers Care Plaster Form Maker Name Role Phone Martin Vázquez Primary Care Physician [phone] [id number] Date(s): 10/05/23 - 10/05/23 [facility] [address] [place] [address] [phone] Discharge Disposition: Home or Self Care Attending Physician: DO Kelly Jason D Referring Physician: LINDA Carbone Sarah A Allergies, Adverse Reactions, Alerts No Known Medication Allergies Medications atorvastatin 20 mg oral tablet TAKE 1 TABLET BY MOUTH ONCE DAILY Start Date: 09/19/23 Status: Ordered Lantus Solostar Pen 100 units/mL subcutaneous solution INJECT 40 TO 50 UNITS SUBCUTANEOUSLY IN THE MORNING Start Date: 09/19/23 Status: Ordered lisinopril 40 mg oral tablet Start: 09/19/23 13:09:00 EDT, 1 tab, PO, Daily, Disp# 90 tab, Refills: 3, Pharmacy: [id number] Start Date: 09/19/23 Status: Ordered metFORMIN 500 mg oral tablet TAKE 1 TABLET BY MOUTH TWICE DAILY Start Date: 09/19/23 Status: Ordered Metoprolol Succinate ER 50 mg oral tablet, extended release Start: 10/03/23 9:32:00 EDT, 1 tab, PO, bid, Disp# 180 tab, Refills: 3, Pharmacy: [id number] Start Date: 10/03/23 Status: Ordered Problem List Condition Confirmation Course Effective Dates Status Health [facility] Informant Tobacco user Confirmed Active Social History Social History Type Response Smoking Status Never smoked cigaret johnny Sex Male Patient Care team information Care Team Personnel Name: DO Vázquez Richard C Position: Referring DIRECT Member Role: Primary Care Provider Address: Address: [facility] [facility] [address] [place] [address] Care Team Related Persons Name: TAMMY CERNA Address: home [address] [facility] [place] [phone]
--- OUTSIDE RECORDS SUMMARY | 2023-11-22 21:38 | External Medical Summary | Continuity of Care Document ---
Author Name Unknown Organization [place] Address [address] [place] [address] Phone [phone] Problems Active Problems Provider Date Essential hypertension [...] Never Smoked Cigarette s Tobacco Use Reviewed: 11/14/23 Never Smoked Cigars Tobacco Use Reviewed: 11/14/23 Never Smoked A Pipe Smoking Status Reviewed: 11/14/23 Never Smoked A Pipe Smokeless Tobacco 11/14/2023 Current Smokel ess Tobacco User, Uses 10 Times Daily Smokeless Tobacco 11/14/2023 Current Smokel ess Tobacco User, Uses 10 Times Daily ETOH Use Occasionally consumes alcoho l Recreational Drug Use Denies Drug Use Allergies and adverse reactions Active Allergies Criticality Reaction | Severity Comments Date Prednisone Unable to assess criticality 08/31/2023 Inactive Allergies NKDA Unable to assess criticality 04/15/2019 Medications Active Medications SIG Qnty Indications Order ing Provider Date Zhnzvxbqh6sk Tablets 1 by mouth daily as needed 30tabs Kaia Carpenter MD 11/14/2023 Mipkdrbfnp42ut Tablets 1 by mouth every day 90tabs Kaia miller MD 11/14/2023 Lantus Knaoogyr650Ilgq/ML Solution Pen-Inject inject 40 units subcutaneously once daily 45ml Kaia Carpenter MD 08/31/2023 Metoprolol Succinate ER25mg Tablets ER 24HR 1 by mouth twice daily 90tabs Kaia Carpenter MD 08/31/2023 Metformin WFZ041aj Tablets Take 1 tablet by mouth twice daily 180tabs E11.9 Kaia Carpenter MD 11/09/2020 Hydrochlorothiazide 12.5mg Tablets 1 by mouth every day 90tabs I10 Kaia miller MD 08/26/[address] 1 by mouth every day Unknown 0000/0 000 Atorvastatin Bfpaamt93ii Tablets take 1 tablet by mouth once daily 90tabs Kaia Carpenter MD History Medications Hvkxab0oh TBPK use as directed 21units Dakota Phillips MD 08/15/2023 - 08/22/2023 Amoxicillin/Clavulan ate Legkmicfp368-882by Tablets one by mouth twice a day x 10 days 20tabs Kaia Carpenter MD 08/15/2023 - 08/25/2023 Medications Administered in Office Medication SIG Qnty Indications Ordering Provider Date Injection Kenalog 10 MG [facility] [id number] Greg Morales 03/11/2020 Immunizations CPT Code Status Date Vaccine Lot # [id number] Refused 11/18/2020 Moderna Sars-Co v-2 (Cov-19) vacc,100 mcg/ 0.5 mL 12Y+EMR Doc Only [id number] Refused 11/18/2020 Moderna Sars-Co v-2 (Cov-19) vacc,100 mcg/ 0.5 mL 12Y+EMR Doc Only 55056 Refused 08/26/2020 Shingrix [id number] Refused 08/26/2020 Tdap (Tetanus, diphtheria & acel. pertussis) Adacel or Boostrix 22963 Refused 08/26/2020 Influenza Virus Vaccine, Quad, Preserv Free, 6Mon And Up Vital Signs Date Vital Result Comment 11/14/2023 1:47pm BP Systolic 136 mmHg BP Diastolic 80 mmHg Body Temperature 97.1 F Heart Rate 87 /min Respiratory Rate 17 /min Weight 240.50 lb Weight 109.091 kg O2 % BldC Oximetry 99 % 08/31/2023 11:06am BP Systolic 120 mmHg BP Diastolic 70 mmHg Body Temperature 98.1 F Heart Rate 70 /min Respiratory Rate 20 /min Weight 247.00 lb Weight 112.039 kg Procedures Date Code Description Status 11/14/2023 G2211 Continuation of care e/m vis it add on Completed 11/14/2023 3079F PVRP Diastolic BP 80-89 MMHG Completed 11/14/2023 3075F PVRP Systolic BP 130 To 139 MMHG Completed 11/14/2023 3051F Most Recent HG A1c > Equal T o 7.0% & <8.0% Completed 08/31/2023 G2211 Continuation of care e/m vis it add on Completed 08/17/2023 G2012 Phone Evaluation/Management By Physician 21-30 Min Completed 02/16/2010 [id number] Colonoscopy Completed Medical Devices Description No Information Available Encounters Type Date Location Provider Dx Diagnosis Office Visit 11/14/2023 2:00p Shereen Jones PA-C I10 Essential (primary) hypertension E78.2 Mixed hyperlipidemia I47.10 Supraventricular tac hycardia, unspecified E11.9 Type 2 diabetes natalie itus without complications Office Visit 08/31/2023 11:00a Shereen Jones PA-C E08.10 Diabetes due to underlying condition w ketoacidosis w/o coma E87.1 Hypo-osmolality and hyponatremia I47.10 Supraventricular tac hycardia, unspecified Office Visit 08/17/2023 8:00a Shereen clifford PA-C I10 Essential (primary) hypertension E78.2 Mixed hyperlipidemia E11.9 Type 2 diabetes natalie itus without complications Assessments Date Code Description Provider 11/14/2023 I10 Essential (primary) hyperten bernadine Scar Jones PA-C 11/14/2023 E78.2 Mixed hyperlipidemia Scar Jones PA-C 11/14/2023 I47.10 Supraventricular tachycardia , unspecified Scar Jones PA-C 11/14/2023 E11.9 Type 2 diabetes mellitus without complications Scar Jones PA-C 08/31/2023 E08.10 Diabetes mellitu s due to underlying condition with ketoacidosis without coma Scar Jones PA-C 08/31/2023 E87.1 Hypo-osmolality and hyponatr emia Scar Jones PA-C 08/31/2023 I47.10 Supraventricular tachycardia , unspecified Scar Jones PA-C 08/17/2023 I10 Essential (primary) hyperten bernadine Scar Jones PA-C 08/17/2023 E78.2 Mixed hyperlipidemia Scar Jones PA-C 08/17/2023 E11.9 Type 2 diabetes mellitus without complications Scar Jones PA-C Plan of Treatment Future Appointment(s):* 02/08/2024 8:00 am - [facility] * 02/15/2024 8:00 am - Scar Jones PA-C at [facility] 11/14/2023 - Scar Jones PA-C* I10 Essential (primary) hypertension* Comments:* Continue current medication Low-sodium diet Blood pressure stable Patient verbalizesunderstanding of care plan / instructions. Refuses to make any medication changes * Recommendations:* Low-salt diet. Exercise. Continue medication as directed. * E78.2 Mixed hyperlipidemia* Comments:* Continue current medication. Refuses repeat lab work today Diet and exercise plan discussed at length * Recommendations:* Low-fat, low-cholesterol diet. Exercise. * I47.10 Supraventricular tachycardia, unspecified* Comments:* Continue metoprolol as advised Refuses to make any medication changes Cardiology increaselisinopril to 40 mg Patient refuses to undergo cardiac catheterization aware of the risk of sudden cardiac * E11.9 Type 2 diabetes mellitus without complications* Comments:* Diet and exercise plan discussed Increase exercise program discussed. Continue meds as advised Discontinue insulin on his own * Recommendations:* Follow diabetic diet. Continue medications as prescribed. * All* New Medication:* Lorazepam 1 mg - 1 by mouth daily as needed * Lisinopril 40 mg - 1 by mouth every day Functional Status Description No Information Available Mental Status Description No Information Available Referrals Description No Information Available"
--- OUTSIDE RECORDS SUMMARY | 2023-11-22 21:38 | External Medical Summary | Continuity of Care Document ---
Author Name Unknown Organization [facility] [address] Address [address] [place], [place] [id number] Care Team Providers Care Medical Transcription Radiology Name Role Phone Martin Vázquez Primary Care Physician [phone] [id number] Date(s): 09/28/23 - 09/28/23 [facility] [address], [address] [place] [address] [phone] Discharge Disposition: Home or Self Care Attending Physician: LINDA Carbone Sarah A Referring Physician: LINDA Carbone Sarah A Allergies, [...] Daily, Disp# 90 tab, Refills: 3, Pharmacy: [id number] Start Date: 09/19/23 Status: Ordered metFORMIN 500 mg oral tablet TAKE 1 TABLET BY MOUTH TWICE DAILY Start Date: 09/19/23 Status: Ordered Metoprolol Succinate ER 50 mg oral tablet, extended release Start: 09/28/23 16:37:00 EDT, 1 tab, PO, Daily, Disp# 90 tab, Refills: 3, Pharmacy: [id number] Start Date: 09/28/23 Status: Ordered Problem List Condition Confirmation Course Effective Dates Status Health St atus Informant Tobacco user Confirmed Active Results Radiology Reports * Exam Date Time Procedure Performing Provider Status 09/28/23 10:51 AM Echo TransTHORacic TTE Complete Cyn Pierson; Final Notes: (Echo TransTHORacic TTE Complete) Reason For Exam: low EF, possible wma on previous testing Echo TransTHORacic TTE Complete Report Signatures Finalized by Dr. Bassem Kelly MD on 09/28/2023 04:46 PM [place] Act 112: Yes - Discussed with patient Summary 1. Normal left ventricular size. 2. Global hypokinesis with mildly reduced systolic function. 3. Ejection fraction as calculated by Biplane Simpsons method is 40-45%. 4. Mild concentric left ventricular hypertrophy. 5. At least Grade II and possibly Grade III diastolic dysfunction of the left ventricle (restrictive filling pattern) with elevated left atrial pressure. 6. Difficult visualization of the right ventricle; appears mildly dilated right ventricle with reduced systolic function. 7. Mild biatrial dilation. 8. Dilated ascending aorta (4.2 cm) and aortic arch (3.9 cm). 9. Calcified, tricuspid aortic valve with a more significantly calcified and restricted non-coronary cusp. 10. Mild aortic valve insufficiency. 11. Mild mitral valve regurgitation. 12. Mild tricuspid regurgitation. 13. Mildly elevated pulmonary artery pressures, estimated PASP is 35 mmHg. 14. Compared to the previous study performed 08/23/2023 at [facility], the patient again refused contrast on today's exam so the LV function is difficult to determine; however, it appears mildly reduced. Patient Info Name: AMY CERNA Age: 68 years : 1955 Gender: Male Ht: 168 cm Wt: 109 kg BSA: 2.30 m2 HR: 105 bpm BP: 130 / 92 mmHg Heart Rhythm: Sinus Tachycardia Technical Quality: Technically difficult study Exam Date: 09/28/2023 10:00 AM Exam Location: [facility] Patient Status: Outpatient Staff Ordering Physician: Laura Carbone Photocopying Machine Operator: Cyn Astorga RDCS, RVT Attending Physician: Laura Carbone Study Info CPT 48488 - Indications I429 - Cardiomyopathy, unspecified Procedure(s) * A complete two-dimensional, color flow and Doppler transthoracic echocardiogram was performed. Exam Type: Cardiac Basic Left Ventricle Normal left ventricular size. Global hypokinesis with mildly reduced systolic function. Ejection fraction as calculated by Biplane Simpsons method is 40-45%. Mild concentric left ventricular hypertrophy. At least Grade II and possibly Grade III diastolic dysfunction of the left ventricle (restrictive filling pattern) with elevated left atrial pressure. Right Ventricle Difficult visualization of the right ventricle; appears mildly dilated right ventricle with reduced systolic function. TAPSE was 1.3 cm. Left Atrium Mildly dilated left atrium size. Right Atrium Mildly dilated right atrium. Atrial Septum Appears intact. Aortic Valve Calcified, tricuspid aortic valve with a more significantly calcified and restricted non-coronary cusp. Mild aortic valve insufficiency. Pulmonic Valve Unremarkable pulmonic valve. Mitral Valve Structurally normal mitral valve. Mild mitral valve regurgitation. Tricuspid Valve Structurally normal tricuspid valve. Mild tricuspid regurgitation. Mildly elevated pulmonary artery pressures, estimated PASP is 35 mmHg. Pericardium/Pleural No pericardial effusion. Inferior Vena Cava Normal IVC size and inspiratory collapse. Estimated right atrial pressure is 3 mmHg. Aorta Calcified aortic root and sinotubular junction. Normal size aortic root. Dilated ascending aorta (4.2 cm) and aortic arch (3.9 cm). Left Ventricular Outflow Tract Name Value Normal LVOT 2D LVOT Diameter 1.8 cm LVOT Doppler LVOT Peak Velocity 0.82 m/s LVOT Peak Gradient 3 mmHg LVOT Mean Gradient 1 mmHg LVOT VTI 13.18 cm LVOT Stroke Volume 34.84 ml LVOT Stroke Volume Index 0.02 l/m2 LVOT Cardiac Output 3.66 l/min LVOT Cardiac Index 1.59 L/min/m2 Pulmonic Valve Name Value Normal PV 2D RVOT Diameter (2D) 1.9 cm 1.7-2.7 RVOT Doppler RVOT Peak Velocity 0.81 m/s RVOT Peak Gradient 3 mmHg PV Doppler PV Peak Velocity 0.98 m/s PV Peak Gradient 4 mmHg Mitral Valve Name Value Normal MV Doppler MV PHT 36 ms MV Diastolic Function MV E Peak Velocity 0.86 m/s <=0.50 MV A Peak Velocity 0.54 m/s MV E/A 1.58 <=0.80 MV Decel Time 123 ms MV Annular TDI MV Septal s' Velocity 5.17 cm/s MV Septal e' Velocity 5.26 cm/s >=7.00 MV E/e' (Septal) 16.4 <=8.0 MV Lateral s' Velocity 7.45 cm/s MV Lateral e' Velocity 9.90 cm/s >=10.00 MV E/e' (Lateral) 8.70 <=8.00 MV e' Average 7.58 MV E/e' (Average) 12.54 <=14.00 Tricuspid Valve Name Value Normal TV Regurgitation Doppler TR Peak Velocity 2.82 m/s <=2.80 TR Peak Gradient 32 mmHg Estimated PAP/RSVP RA Pressure 3 mmHg <=5 PA Systolic Pressure 35 mmHg <40 TV Diastolic Function TV E Peak Velocity 0.38 m/s TV A Peak Velocity 0.28 m/s TV E/A 1.32 0.80-2.00 TV Decel Time 151 ms >=120 TV Annular TDI TV Lateral Camille s' Velocity 6.7 cm/s 9.5-18.7 TV Lateral Camille e' Velocity 15.2 cm/s <7.8 TV E/e' 2.48 2.00-6.00 Aorta Name Value Normal Ascending Aorta Sinus of Valsalva Diameter 3.3 cm 3.1-3.7 Sinus of Valsalva Index 1.43 cm/m2 1.50-1.90 Prox Asc Ao Diameter 4.2 cm 2.6-3.4 Prox Asc Ao Diameter Index 1.83 cm/m2 1.30-1.70 Thoracic Aorta Ao Arch Diameter 3.9 cm Desc Ao Peak Velocity 0.69 m/s Desc Ao Peak Gradient 2 mmHg Venous Name Value Normal IVC/SVC IVC Diameter (Insp 2D) 0.5 cm IVC Diameter (Exp 2D) 1.5 cm <=2.1 IVC Diameter Percent Change (2D) 64 % >=50 Aortic Valve Name Value Normal AV Doppler AV Peak Velocity 1.38 m/s <2.00 AV Peak Gradient 7 mmHg AV Area (Cont Eq Erik) 1.6 cm2 AV Area Index (Cont Eq Erik) 0.68 cm2/m2 AV V1/V2 Ratio 0.60 AV Regurgitation 2D LVOT Area 2.6 cm2 Ventricles Name Value Normal LV Dimensions 2D/MM IVS Diastolic Thickness (2D) 1.1 cm 0.6-1.0 LVID Diastole (2D) 5.1 cm 3.6-5.6 LVIW Diastolic Thickness (2D) 1.1 cm 0.6-1.0 LVID Systole (2D) 4.2 cm 2.5-4.0 LVOT Diameter 1.8 cm LV Mass (2D Cubed) 214.68 g 88.00-224.00 Relative Wall Thickness (2D) 0.43 LV Fractional Shortening/Ejection Fraction 2D/MM LV Fractional Shortening (2D) 18 % 25-43 LV Diastolic Volume (4C MOD) 87 ml LV Diastolic Volume (2C MOD) 83 ml LV Diastolic Volume (BP MOD) 84 ml 62-150 LV Diastolic Volume Index (BP MOD) 36.63 ml/m2 34.00-74.00 LV Systolic Volume (BP MOD) 47 ml 21-61 LV Systolic Volume Index (BP MOD) 20.50 ml/m2 11.00-31.00 LV EF (BP MOD) 44 % 57-68 LV SV (BP MOD) 37.14 ml RV Dimensions 2D/MM RV Basal Diastolic Dimension 4.5 cm 2.5-4.1 TAPSE 1.3 cm >=1.7 Atria Name Value Normal LA Dimensions LA Area (4C) 22.7 cm2 LA Length (4C) 6.3 cm LA Area (2C) 25.9 cm2 LA Length (2C) 6.1 cm LA Volume (4C A-L) 68.96 ml LA Volume (2C A-L) 94.10 ml LA Volume (BP A-L) 82 ml 18-58 LA Volume Index (BP A-L) 35.77 ml/m2 <=34.00 RA Dimensions RA Area (4C) 18.9 cm2 <=18.0 Final Signed by:DO Kelly Jason D Signed (Electronic Signature):09/28/2023 10:00 Social History Social History Type Response Smoking Status Never smoked cigaret johnny Sex Male Patient Care team information Care Team Personnel Name: DO Vázquez Richard C Position: Referring DIRECT Member Role: Primary Care Provider Address: Address: [facility] [address] [place] [address] Care Team Related Persons Name: TAMMY CERNA Address: home [address] [place] [address] [place] [phone]
--- OUTSIDE RECORDS SUMMARY | 2023-11-22 21:38 | External Medical Summary | Continuity of Care Document ---
Author Name Unknown Organization [place] Address [address] [facility] [place] [address] Phone [phone] Problems Active Problems Provider Date Essential hypertension [...] SIG Qnty Indications Order ing Provider Date Kaxdzqopo4xn Tablets 1 by mouth daily as needed 30tabs Kaia Carpenter MD 11/14/2023 Hyyjavxlbd81se Tablets 1 by mouth every day 90tabs Kaia miller MD 11/14/2023 Lantus Seuvfvfy334Gwjo/ML Solution Pen-Inject inject 40 units subcutaneously once daily 45ml Kaia Carpenter MD 08/31/2023 Metoprolol Succinate ER25mg Tablets ER 24HR 1 by mouth twice daily 90tabs Kaia Carpenter MD 08/31/2023 Metformin CKS541zp Tablets Take 1 tablet by mouth twice daily 180tabs E11.9 Kaia Carpenter MD 11/09/2020 Hydrochlorothiazide 12.5mg Tablets 1 by mouth every day 90tabs I10 Kaia miller MD 08/26/[address] 1 by mouth every day Unknown 0000/0 000 Atorvastatin Lxpwnaj52dh Tablets take 1 tablet by mouth once daily 90tabs Kaia Carpenter MD History Medications Sqrhsz3gl TBPK use as directed 21units Dakota Phillips MD 08/15/2023 - 08/22/2023 Amoxicillin/Clavulan ate Jfowpppuq414-586pz Tablets one by mouth twice a day x 10 days 20tabs Kaia Carpenter MD 08/15/2023 - 08/25/2023 Medications Administered in Office Medication SIG Qnty Indications Ordering Provider Date Injection Kenalog 10 MG [facility] [id number] Greg Morales 03/11/2020 Immunizations CPT Code Status Date Vaccine Lot # [id number] Refused 11/18/2020 Moderna Sars-Co v-2 (Cov-19) vacc,100 mcg/ 0.5 mL 12Y+EMR Doc Only [id number] Refused 11/18/2020 Moderna Sars-Co v-2 (Cov-19) vacc,100 mcg/ 0.5 mL 12Y+EMR Doc Only [id number] Refused 08/26/2020 Shingrix [id number] Refused 08/26/2020 Tdap (Tetanus, diphtheria & acel. pertussis) Adacel or Boostrix [id number] Refused 08/26/2020 Influenza Virus Vaccine, Quad, Preserv [...] kg Procedures Date Code Description Status 11/14/2023 3079F PVRP Diastolic BP 80-89 MMHG Completed 11/14/2023 3075F PVRP Systolic BP 130 To 139 MMHG Completed 11/14/2023 3051F Most Recent HG A1c > Equal T o 7.0% & <8.0% Completed 08/31/2023 G2211 Continuation of care e/m vis it add on Completed 08/17/2023 G2012 Phone Evaluation/Management By Physician 21-30 Min Completed 02/16/2010 [id number] Colonoscopy Completed Medical Devices Description No Information [...] Appointment(s):* 02/08/2024 8:00 am - [facility] [place] * 02/15/2024 8:00 am - Scar Jones PA-C at [place] 11/14/2023 - Scar Jones PA-C* I10 Essential [...]
--- OUTSIDE RECORDS SUMMARY | 2023-11-22 21:38 | External Medical Summary | Continuity of Care Document ---
Author Name Unknown Organization [facility] [address] Address [address] [place], [place] [id number] Care Team Providers Care Apprentice Architect Name Role Phone Martin Vázquez Primary Care Physician [phone] [id number] Date(s): 09/19/23 - 09/19/23 [facility] [address] [place] [id number] [phone] Discharge Disposition: Home or Self Care Attending [...] Daily, Disp# 90 tab, Refills: 3, Pharmacy: [facility] Start Date: 09/19/23 Status: Ordered metFORMIN 500 mg oral tablet TAKE 1 TABLET BY MOUTH TWICE DAILY Start Date: 09/19/23 Status: Ordered Metoprolol Succinate ER 25 mg oral tablet, extended release TAKE 1 TABLET BY MOUTH ONCE DAILY Start Date: 09/19/23 Status: Ordered Problem List Condition Confirmation Course Effective Dates Status Health St atus Informant Tobacco user Confirmed Active Social History Social History Type Response Smoking Status Never smoked cigaret johnny Sex Male Patient Care team information Care Team Personnel Name: DO Vázquez Richard C Position: Referring DIRECT Member Role: Primary Care Provider Address: Address: [address] [place] [address] [address] [place] [address] [place] Care Team Related Persons Name: TAMMY CERNA Address: home [facility] [address] [place] [id number]
--- OUTSIDE RECORDS SUMMARY | 2023-11-22 21:38 | External Medical Summary | Continuity of Care Document ---
Author Name Unknown Organization [place] Address [address] [facility] [place] [address] Phone [phone] Problems Active Problems Provider Date Essential hypertension [...] SIG Qnty Indications Order ing Provider Date Djgbztgsd0dd Tablets 1 by mouth daily as needed 30tabs Kaia Carpenter MD 11/14/2023 Szbhmtbbuj35cf Tablets 1 by mouth every day 90tabs Kaia miller MD 11/14/2023 Lantus Lmqxcgkr852Ogiy/ML Solution Pen-Inject inject 40 units subcutaneously once daily 45ml Kaia Carpenter MD 08/31/2023 Metoprolol Succinate ER25mg Tablets ER 24HR 1 by mouth twice daily 90tabs Kaia Carpenter MD 08/31/2023 Metformin OAZ513uv Tablets Take 1 tablet by mouth twice daily 180tabs E11.9 Kaia Carpenter MD 11/09/2020 Hydrochlorothiazide 12.5mg Tablets 1 by mouth every day 90tabs I10 Kaia miller MD 08/26/[address] 1 by mouth every day Unknown 0000/0 000 Atorvastatin Ygwbsjd34ey Tablets take 1 tablet by mouth once daily 90tabs Kaia Carpenter MD History Medications Ahlteb9gt TBPK use as directed 21units Dakota Phillips MD 08/15/2023 - 08/22/2023 Amoxicillin/Clavulan ate Ttndlakzq778-825ro Tablets one by mouth twice a day x 10 days 20tabs Kaia Carpenter MD 08/15/2023 - 08/25/2023 Medications Administered in Office Medication SIG Qnty Indications Ordering Provider Date Injection Kenalog 10 MG [facility] [id number] Greg Morales 03/11/2020 Immunizations CPT Code Status Date Vaccine Lot # [id number] Refused 11/18/2020 Moderna Sars-Co v-2 (Cov-19) vacc,100 mcg/ 0.5 mL 12Y+EMR Doc Only [id number] Refused 11/18/2020 Moderna Sars-Co v-2 (Cov-19) vacc,100 mcg/ 0.5 mL 12Y+EMR Doc Only [id number] Refused 08/26/2020 Shingrix 42582 Refused 08/26/2020 Tdap (Tetanus, diphtheria & acel. pertussis) Adacel or Boostrix 53703 Refused 08/26/2020 Influenza Virus Vaccine, Quad, Preserv [...] Evaluation/Management By Physician 21-30 Min Completed 02/16/2010 [id number] Colonoscopy Completed Medical Devices Description No Information [...] Appointment(s):* 02/08/2024 8:00 am - Lab - [place] [facility] [place] * 02/15/2024 8:00 am - Scar Jones PA-C at [place] 11/14/2023 - Scar Jones PA-C* I10 Essential [...]
--- OUTSIDE RECORDS SUMMARY | 2023-11-22 21:38 | External Medical Summary | Continuity of Care Document ---
Author Name Unknown Organization [facility] [address] Address [address] [place], [place] [address] Care Team Providers Care Sport Intern Name Role Phone Martin Vázquez Primary Care Physician [phone] [id number] Date(s): 09/19/23 - 09/19/23 [facility] [address], [address] [place] [phone] Encounter Diagnosis Cardiomyopathy(Discharge Diagnosis) - 09/19/23 HTN (hypertension)(Discharge Diagnosis) - 09/19/23 Atrial tachycardia(Discharge Diagnosis) - 09/19/23 HLD (hyperlipidemia)(Discharge Diagnosis) - 09/19/23 Irregular heart beat(Discharge Diagnosis) - 09/19/23 Discharge Disposition: Home or Self Care Attending Physician: LINDA Carbone Sarah A Allergies, Adverse Reactions, Alerts No Known Medication Allergies Assessment and Plan Extracted from: Title:Cardiology Office Visit Note Author:LINDA [address] rd, Sarah A Date:09/19/23 Impression: 1. Atrial tachycardia on monitor during hospitalization 08/21 at [facility] 2. One short run of NSVT on monitor during hospitalization 3. Echo - EF 50-55%, cannot exclude RWMA due to poor image quality. 4. HTN 5. HLD 6. History of alcohol abuse 7. Continued chewing tobacco use 8. Obesity 9. Multiple family member with genetic cardiomyopathy ' EKGs were unrevealing of any atrial tachycardia. He was supposed to havean event monitormailed to him from the hospitalbut never received 1. Will have himleave with 1 today. He has not felt any palpitations. I wonder if his episodes of tachycardia could have been tied to alcohol detox. Previouslyhe notes he was drinkinga 15 pack of beer every 2 days. The tachycardia episodes started 3 days afterpresenting to the hospital soit's the right timing for alcohol detox. At this point he is a monthout from his hospitalization and has not had anyalcoholsince discharge. He notes that he does not plan to start drinking againhe is happy to be sober. He did have one short run of NSVT at the hospital. He continues on metoprolol. Hisechocardiogramreading noted that it was a difficult study toread. It is unclear if he really has reduced ejection fraction and wall motion abnormalities. I will have him get a repeatechocardiogram. He does have multiple family members with a genetically linked cardiomyopathy. He has never had genetic testing for this. His blood pressure is slightly hypertensive. He should increase his lisinopril to 40 mg daily with bmp in a week. He was encouraged to quit using tobacco. He will return to the clinic in 4 months Medications atorvastatin 20 mg oral tablet TAKE 1 TABLET BY MOUTH ONCE DAILY Start Date: 09/19/23 Status: Ordered Lantus Solostar Pen 100 units/mL subcutaneous solution INJECT 40 TO 50 UNITS SUBCUTANEOUSLY IN THE MORNING Start Date: 09/19/23 Status: Ordered lisinopril 40 mg oral tablet Start: 09/19/23 13:09:00 EDT, 1 tab, PO, Daily, Disp# 90 tab, Refills: 3, Pharmacy: [id number] Start Date: 09/19/23 Status: Ordered metFORMIN 500 mg oral tablet TAKE 1 TABLET BY MOUTH TWICE DAILY Start Date: 09/19/23 Status: Ordered Metoprolol Succinate ER 25 mg oral tablet, extended release TAKE 1 TABLET BY MOUTH ONCE DAILY Start Date: 09/19/23 Status: Ordered Mental Status 09/19/23 Mandatory Health Literacy Documentation Yes Health Literacy Communication Barriers N ever Primary Language [place] Problem List Condition Confirmation Course Effective Dates Status Health St atus Informant Tobacco user Confirmed Active Diagnosis Diagnosis Type Effective Dates Health Status Clinical Service Informant Atrial tachycardia Discharge Diagnosis 09/19/23 Non-Specified HLD (hyperlipidemia) Discharge Diagnosis 09/19/23 Non-Specified Irregular heart beat Discharge Diagnosis 09/19/23 Non-Specified Cardiomyopathy Discharge Diagnosis 09/19/23 Non-Specified HTN (hypertension) Discharge Diagnosis 09/19/23 Non-Specified Vital Signs Most recent to oldest [Reference Range]: 1 Patient Weight 109.9 kg (09/19/23 12:53 PM) Heart Rate 78 bpm (09/19/23 12:53 PM) Respiratory Rate 18 br/min (09/19/23 12:53 PM) Blood Pressure 142/68mmHg (09/19/23 12:53 PM) BP Location # 1 Right Arm (09/19/23 12:53 PM) Social History Social History Type Response Smoking Status Never smoked cigaret johnny Sex Male Radiology * Contributor_system, MUSE01: VERIFY, PERFORM Event Display: EKG Authored Date: Please click on link to see image. Cardiology Outpatient Note * LINDA Carbone Sarah A: MODIFY, PERFORM, MODIFY, MODIFY Event Display: Cardiology Outpt Note Authored Date: Primary Care Provider DO Vázquez Richard C Chief Complaint new patient History of Present Illness Mr. Cerna presents for evaluation of PAT during hospitalization. He was hospitalized at [facility] for hyperglycemia 08/21. While there he had runs of PAT vs atrial flutter and one brief run of NSVT on the monitor. He did not have any palpitations or symptoms with these episodes. He notes that since the hospitalhe has been feeling well. No sob or chest pain. No palpitations no edema. He works at [employer] with his daughter's father in law and he stays busy and on his feet much of the day. He's been losing weight. He had to move his wedding ring to his middle finger Pmhx: htn, hld, DMII Social: chews half can a day,quit drinking - he was drinking 8 beers a day, Family: has 2 children - his daughter has peripartum cardiomyopathy - family has cardiomyopathy, Review of Systems All other systems reviewed and negative except as discussed in the HPI Physical Exam Vitals & Measurements HR:78(Monitored) RR:18 BP:142/68 SpO2:98% WT:109.900kg(Dosing) WT:109.9kg Physical Examination General: Alert and oriented, No acute distress. Respiratory: Lungs are clear to auscultation, Respirations are non-labored. Cardiovascular: Normal rate, Regular rhythm, No murmur, No edema, no carotid bruits to auscultation bilaterally. Integumentary: Warm, Dry, [place] Neurologic: Alert, Oriented. Cognition and Speech: Speech clear and coherent. Psychiatric: Cooperative, Appropriate mood & affect. Assessment/Plan Impression: 1. Atrial tachycardia on monitor during hospitalization 08/21 at [facility] 2. One short run of NSVT on monitor during hospitalization 3. Echo - EF 50-55%, cannot exclude RWMA due to poor image quality. 4. HTN 5. HLD 6. History of alcohol abuse 7. Continued chewing tobacco use 8. Obesity 9. Multiple family member with genetic cardiomyopathy ' EKGs were unrevealing of any atrial tachycardia. He was supposed to havean event monitormailed to him from the hospitalbut never received 1. Will have himleave with 1 today.He has not felt any palpitations. I wonder if his episodes of tachycardia could have been tied to alcohol detox. Previouslyhe notes he was drinkinga 15 pack of beer every 2 days. The tachycardia episodes started 3 days afterpresenting to the hospital soit's the right timing for alcohol detox. At this point he is a monthout from his hospitalization and has not had anyalcoholsince discharge. He notes that he does not plan to start drinking againhe is happy to be sober. He did have one short run of NSVT at the hospital. He continues on metoprolol. Hisechocardiogramreading noted that it was a difficult study toread. It is unclear if he really has reduced ejection fraction and wall motion abnormalities. I will have him get a repeatechocardiogram. He does have multiple family members with a genetically linked cardiomyopathy. He has never had genetic testing for this. His blood pressure is slightly hypertensive. He should increase his lisinopril to 40 mg daily with bmp in a week. He was encouraged to quit using tobacco. He will return to the clinic in 4 months Problem List/Past Medical History Ongoing Tobacco user Medications atorvastatin(atorvastatin 20 mg oral tablet) insulin glargine(Lantus Solostar Pen 100 units/mL subcutaneous solution) lisinopril(lisinopril 40 mg oral tablet), 40 mg= 1 tab, PO, Daily, 3 refills metFORMIN(metFORMIN 500 mg oral tablet) metoprolol(Metoprolol Succinate ER 25 mg oral tablet, extended release) Allergies No Known Medication Allergies Social History Smoking Status Never smoked cigarettes Electronic Signature on File CC: Martin Vázquez DO [address] [facility] [address] [facility] [address] * Electronically Reviewed/Signed by: LINDA Gutiérrez Author Signature Dt/Tm:09/19/2023 02:30 PM [facility] [place] [facility] Patient Care team information Care Team Personnel Name: DO Vázquez Richard C Position: Referring DIRECT Member Role: Primary Care Provider Address: Address: [address] [place] [address], [place] [address] Care Team Related Persons Name: TAMMY CERNA Address: [address] [place] [phone]
--- OUTSIDE RECORDS SUMMARY | 2023-11-22 21:39 | External Medical Summary | Continuity of Care Document ---
Author Name Unknown Organization [place] Address [address] [facility] [place] [address] Phone [phone] Problems Active Problems Provider Date Essential hypertension [...] Never Smoked A Pipe Smoking Status Reviewed: 08/31/23 Never Smoked A Pipe Smokeless Tobacco 09/28/2021 [...] SIG Qnty Indications Order ing Provider Date Lantus Qlyzersm466Krhw/ML Solution Pen-Inject inject 40 units subcutaneously once daily 45ml Kaia Sabeeh, MD 08/31/2023 Metoprolol Succinate ER25mg Tablets ER 24HR 1 by mouth every day 90tabs Kaia miller MD 08/31/2023 Metformin [id number] Tablets Take 1 tablet by mouth twice daily 180tabs E11.9 Kaia Carpenter MD 11/09/2020 Hydrochlorothiazide 12.5mg Tablets 1 by mouth every day 90tabs I10 Kaia miller MD 08/26/[address] 1 by mouth every day Unknown 0 000 Atorvastatin Kerkctl50it Tablets take 1 tablet by mouth once daily 90tabs Kaia Carpenter MD History Medications Klzywi1vv TBPK use as directed 21units Dakota Phillips MD 08/15/2023 - 08/22/2023 Amoxicillin/Clavulan ate Koofvauid070-843cy Tablets one by mouth twice a day x 10 days 20tabs Kaia Carpenter MD 08/15/2023 - 08/25/2023 Medications Administered in Office Medication SIG Qnty Indications Ordering Provider Date Injection Kenalog 10 MG [facility] [id number] Greg Morales 03/11/2020 Immunizations CPT Code Status Date Vaccine Lot # [id number] Refused 11/18/2020 Moderna Sars-Co v-2 (Cov-19) vacc,100 mcg/ 0.5 mL 12Y+EMR Doc Only [id number] Refused 11/18/2020 Moderna Sars-Co v-2 (Cov-19) vacc,100 mcg/ 0.5 mL 12Y+EMR Doc Only [id number] Refused 08/26/2020 Shingrix [id number] Refused 08/26/2020 Tdap (Tetanus, diphtheria & acel. pertussis) Adacel or Boostrix [id number] Refused 08/26/2020 Influenza Virus Vaccine, Quad, Preserv Free, 6Mon And Up Vital Signs Date Vital Result Comment 08/31/2023 11:06am BP Systolic 120 mmHg BP Diastolic 70 mmHg Body Temperature 98.1 F Heart Rate 70 /min Respiratory Rate 20 /min Weight 247.00 lb Weight 112.039 kg 08/17/2023 8:10am BP Systolic 134 mmHg BP Diastolic 78 mmHg Body Temperature 98.1 F Heart Rate 78 /min Respiratory Rate 20 /min Weight 246.00 lb Weight 111.586 kg Procedures Date Code Description Status 08/17/2023 G2012 Phone Evaluation/Management By Physician 21-30 Min Completed 02/16/2010 [id number] Colonoscopy Completed Medical Devices Description No Information Available Encounters Type Date Location Provider Dx Diagnosis Office Visit 08/31/2023 11:00a Shereen Jones PA-C E08.10 Diabetes due to underlying condition w ketoacidosis w/o coma E87.1 Hypo-osmolality and hyponatremia I47.10 Supraventricular tac hycardia, unspecified Office Visit 08/17/2023 8:00a Shereen clifford PA-C I10 Essential (primary) hypertension E78.2 Mixed hyperlipidemia E11.9 Type 2 diabetes natalie itus without complications Assessments Date Code Description Provider 08/31/2023 E08.10 Diabetes mellitu s due to [...] Appointment(s):* 02/08/2024 8:00 am - Lab - Shereen Keita at [place] * 02/15/2024 8:00 am - Scar Jones PA-C at [place] Functional Status Description No Information Available Mental Status Description No Information Available Referrals Description No Information Available"
--- OUTSIDE RECORDS SUMMARY | 2023-11-22 21:39 | External Medical Summary | Continuity of Care Document ---
Author Name Unknown Organization [place] Address [address] [facility] [place] [address] Phone [phone] Problems Active Problems Provider Date Essential hypertension [...] Qnty Indications Order ing Provider Date Lantus Emltbyuv772Bbnf/ML Solution Pen-Inject inject 40 units subcutaneously once daily 45ml Kaia Sabeeh, MD 08/31/2023 Metoprolol Succinate ER25mg Tablets ER 24HR 1 by mouth every day 90tabs Kaia miller MD 08/31/2023 Metformin EMP895jr Tablets Take 1 tablet by mouth twice daily 180tabs E11.9 Kaia Carpenter MD 11/09/2020 Hydrochlorothiazide 12.5mg Tablets 1 by mouth every day 90tabs I10 Kaia miller MD 08/26/[address] 1 by mouth every day Unknown 0 000 Atorvastatin Eoyvdft72vc Tablets take 1 tablet by mouth once daily 90tabs Kaia Carpenter MD History Medications Qxxofx2kh TBPK use as directed 21units Dakota Phillips MD 08/15/2023 - 08/22/2023 Amoxicillin/Clavulan ate Zpabdljav694-821ek Tablets one by mouth twice a day x 10 days 20tabs Kaia Carpenter MD 08/15/2023 - 08/25/2023 Medications Administered in Office Medication SIG Qnty Indications Ordering Provider Date Injection Kenalog 10 MG [facility] [id number] Greg Morales 03/11/2020 Immunizations CPT Code Status Date Vaccine Lot # [id number] Refused 11/18/2020 Moderna Sars-Co v-2 (Cov-19) vacc,100 mcg/ 0.5 mL 12Y+EMR Doc Only [id number] Refused 11/18/2020 Moderna Sars-Co v-2 (Cov-19) vacc,100 mcg/ 0.5 mL 12Y+EMR Doc Only [id number] Refused 08/26/2020 Shingrix [id number] Refused 08/26/2020 Tdap (Tetanus, diphtheria & acel. pertussis) Adacel or Boostrix [id number] Refused 08/26/2020 Influenza Virus Vaccine, Quad, Preserv [...] 111.586 kg Procedures Date Code Description Status 08/31/2023 G2211 Continuation of care e/m vis it add on Completed 08/17/2023 G2012 Phone Evaluation/Management By Physician 21-30 Min Completed 02/16/2010 [id number] Colonoscopy Completed Medical Devices Description No Information [...] am - Lab - Shereen Keita at [place] * 02/15/2024 8:00 am - Scar Jones PA-C at [place] Functional Status Description No Information Available Mental Status Description No Information Available Referrals Description No Information Available"
--- OUTSIDE RECORDS SUMMARY | 2023-11-22 21:39 | External Medical Summary | Continuity of Care Document ---
Author Name Unknown Organization [place] Address [address] [facility] [place] [address] Phone [phone] Problems Active Problems Provider Date Essential hypertension Scar Jones PA-C O nset: 04/15/2019 Mixed hyperlipidemia Scar Jones PA-C Ons et: 04/15/2019 Generalized anxiety disorder Scar Jones PA-C Onset: 04/15/2019 Diverticulitis of colon Scar Jones PA-C Onset: 04/15/2019 Injury of lower leg Scar oJnes PA-C Onse t: 08/02/2019 Epidermoid cyst Scar [...] Qnty Indications Order ing Provider Date Lantus Hkunqjml908Tlka/ML Solution Pen-Inject inject 40 units subcutaneously once daily 45ml Kaia Sabeeh, MD 08/31/2023 Metoprolol Succinate ER25mg Tablets ER 24HR 1 by mouth every day 90tabs Kaia miller MD 08/31/2023 Metformin TGG991te Tablets Take 1 tablet by mouth twice daily 180tabs E11.9 Kaia Carpenter MD 11/09/2020 Hydrochlorothiazide 12.5mg Tablets 1 by mouth every day 90tabs I10 Kaia miller MD 08/26/[address] 1 by mouth every day Unknown 0 000 Atorvastatin Wfvnnyf65uv Tablets take 1 tablet by mouth once daily 90tabs Kaia Carpenter MD History Medications Yhdycj5kr TBPK use as directed 21units Dakota Phillips MD 08/15/2023 - 08/22/2023 Amoxicillin/Clavulan ate Zknubehql976-090ab Tablets one by mouth twice a day x 10 days 20tabs Kaia Carpenter MD 08/15/2023 - 08/25/2023 Medications Administered in Office Medication SIG Qnty Indications Ordering Provider Date Injection Kenalog 10 MG [facility] [id number] Greg Morales 03/11/2020 Immunizations CPT Code Status Date Vaccine Lot # [id number] Refused 11/18/2020 Moderna Sars-Co v-2 (Cov-19) vacc,100 mcg/ 0.5 mL 12Y+EMR Doc Only [id number] Refused 11/18/2020 Moderna Sars-Co v-2 (Cov-19) vacc,100 mcg/ 0.5 mL 12Y+EMR Doc Only [id number] Refused 08/26/2020 Shingrix [id number] Refused 08/26/2020 Tdap (Tetanus, diphtheria & acel. pertussis) Adacel or Boostrix 29147 Refused 08/26/2020 Influenza Virus Vaccine, Quad, Preserv [...] Evaluation/Management By Physician 21-30 Min Completed 02/16/2010 [id number] Colonoscopy Completed Medical Devices Description No Information [...] am - Lab - Shereen Keita at [place] * 02/15/2024 8:00 am - Scar Jones PA-C at [place] Functional Status Description No Information Available Mental Status Description No Information Available Referrals Description No Information Available"
[2023-11-23 06:20] LABS: Basophils # (auto) 0.09 K/uL (0.00-0.20); Basophils % (auto) 0.8 %; Eosinophils % (auto) 1.7 %; Hematocrit (blood only) 49.1 % (42.0-52.0); Immature Granulocytes # (auto) 0.05 K/uL (0.01-0.20); Immature Granulocytes % (auto) 0.4 %; Lymphocytes # (auto) 1.76 K/uL (1.20-3.40); Lymphocytes % (auto) 14.9 %; Mean Corpuscular Hemoglobin 26.6 pg (25.0-34.0); Mean Corpuscular Hgb Conc 32.6 g/dL (32.0-36.0); Mean Corpuscular Volume 81.6 fL (80.0-100.0); Mean Platelet Volume 10.8 fL (9.4-12.4); Monocytes # (auto) 0.92 K/uL (0.11-0.59); Monocytes % (auto) 7.8 %; Neutrophils # (auto) 8.83 K/uL (1.40-6.50); Neutrophils % (auto) 74.4 %; Platelet Count 220 K/uL (130-400); RDW Standard Deviation 40.9 fL (36.4-46.3); Red Blood Count 6.02 M/uL (4.70-6.10); White Blood Count 11.85 K/ul (4.8-10.8)
[2023-11-23 06:37] LABS: Albumin Level 4.1 gm/dl (3.4-5.0); BUN Creatinine Ratio 19.6 (10-20); Calcium 9.3 mg/dl (8.6-10.3); Creatinine Clr Calc Pharmacy 74.6 ml/min; Est GFR (African American) 82.8 ml/min; Est GFR (Non-African American) 71.5 ml/min; Potassium 3.8 mmol/L (3.5-5.1)
[2023-11-23 06:56] LABS: Albumin Globulin Ratio 1.6 (0.9-2); Bilirubin,Total 3.5 mg/dl (0.2-1.0); Globulin 2.6 gm/dl (2.5-4.0); Magnesium 2.1 mg/dl (1.7-2.4); Total Protein 6.7 gm/dl (6.0-8.3)
--- NOTE | 2023-11-23 07:42 | Hospitalist Progress Note ---
Date of Service November 23, 2023 Assessment & Plan (1) FORMAN (dyspnea on exertion): Plan: Patient with progressive SOB and FORMAN over the last few months. CXR with cardiomegaly and pulmonary vascular congestion. D-dimer elevated. CTA PE without signs of VTE. Does have cardiology f/u as he has HFmrEF and ventricular tachycardia. Previously declined cath and ICD placement. Patient notes having FORMAN and CP with metoprolol. Amenable to this now. Cath with non-ischemic cardiomyopathy. Plan for ICD placement today. ICD placement today would initiate GDMT as tolerated - spironolactone, Entresto, increased beta- blockade etc HbA1c - 6.7, LDL 64 cards consulted - appreciate recs (2) Heart failure with mildly reduced ejection fraction (HFmrEF): Plan: Echocardiogram on 09/28/2023 showed global hypokinesis with ejection fraction of 40-45% with at least a grade 2 diastolic dysfunction with possible grade 3. BNP of 919 in the ED. Received a spot dose of Lasix in the ED. Hold on further Lasix for now. (3) Diastolic heart failure: Plan: See above (4) Ventricular tachycardia (paroxysmal): Plan: -Seen previously during hospitalization and on event monitor. Follows with cardiology. Otherwise as above. (5) Elevated troponin I level: Plan: Trop stable at around 20. (6) Uncontrolled type 2 diabetes mellitus with hyperosmolar nonketotic hyperglycemia: Plan: Patient's home regimen held on admission. Continue BSG checks, sliding-scale insulin, hypoglycemic protocol. HbA1c 6.7%. (7) Hypercholesterolemia: Plan: Continue on atorvastatin 20 mg. LDL < 70 Plan Nutrition: heart healthy after procedure, IVF @ 80 mL/hr LR Code status: Conditional DVT ppx: scds, ICD placement today Consults: cardiology Dispo: Telemetry Admission and Anticipated Discharge Date Admission Date: November 21, 2023 Supervising Physician Co-Signing Physician Notes I personally examined the patient and verified nash points of history and exam, discussed case, and agree with decision making and plan documented by Dr. Perez. Patient status post ICD placement today. His was present during evaluation. He reports feeling well, denies chest pain or shortness of breath, is eating without difficulty, and anticipates likely discharge home tomorrow. Patient appears comfortable, lungs clear b/l to auscultation with bandaged pacemaker pocket left anterior chest, heart regular rate and rhythm, bowel sounds normal, no LE edema. Vital signs stable. Encouraged patient to follow cardiology recommendations and engage in heart healthy activities following discharge. Subjective Patient seen at bedside this AM. No CP or SOB. Doing well. Review of Systems 2 Review of Systems: See HPI Physical Exam 2 Physical Exam: Gen: well appearing patient in NAD HEENT: AT NC MMM Resp: CTAB no wheezing no increased work of breathing CV: RRR no m/r/g clinically well perfused Abd: non-distended MSK: no obvious deformities Skin: no rashes or bruising Neuro: alert and oriented Psych: appropriate mood and affect Results & Data Results & Data Vital Signs (Past 12 Hours) Vital Signs Temp Pulse Pulse Resp BP Pulse Ox O2 Del Method 11/23/23 02:41 36.5 C 83 18 144/88 H 95 Room Air 11/22/23 23:07 36.7 C 73 18 105/74 94 Room Air 11/22/23 22:00 77 11/22/23 20:09 36.4 C L 81 18 148/102 H 95 Room Air Laboratory Results 11/23/23 05:28 11/23/23 05:28 Resident Activity Tracking Resident Involvement: Resident Care Provided Care Provided: Adult Hospital Medicine
[2023-11-23] MEDS: LACTATED RINGER'S 1,000 ML IV SCH (08:09)
--- NOTE | 2023-11-23 08:09 | Electrocardiogram Report ---
Test Reason : Blood Pressure : / mmHG Vent. Rate : 070 BPM Atrial Rate : 070 BPM P-R Int : 168 ms QRS Dur : 096 ms QT Int : 456 ms P-R-T Axes : 052 -27 091 degrees QTc Int : 492 ms Sinus rhythm with occasional Premature ventricular complexes Nonspecific T wave abnormality Prolonged QT Abnormal ECG When compared with ECG of 22-NOV-2023 05:15, Premature ventricular complexes are now Present Inverted T waves have replaced nonspecific T wave abnormality in Anterior leads Confirmed by Riccardo Rangel ([id number]) on 11/23/2023 8:09:07 AM Referred By: REFERRED SELF Confirmed By:Celestino Rangel
[2023-11-23] MEDS: FUROSEMIDE 40 MG/4 ML VIAL IV SCH (08:48)
--- NOTE | 2023-11-23 12:24 | Pre Anesthesia Assessment ---
Date of Service November 23, 2023 Pre Sedation Assessment Vital Signs Temp Pulse Pulse Resp BP BP Pulse Ox 11/23/23 11:10 80 18 147/100 H 94 11/23/23 07:25 36.4 C L 79 20 133/69 98 11/23/23 07:00 73 11/23/23 02:41 36.5 C 83 18 144/88 H 95 11/22/23 23:07 36.7 C 73 18 105/74 94 11/22/23 22:00 77 11/22/23 20:09 36.4 C L 81 18 148/102 H 95 11/22/23 18:39 75 11/22/23 18:32 71 11/22/23 16:52 87 23 94 11/22/23 16:01 82 20 95 11/22/23 16:01 130/80 11/22/23 16:01 130/80 11/22/23 15:45 36.6 C 90 17 130/80 98 11/22/23 14:45 36.6 C 87 18 125/75 97 11/22/23 13:45 36.7 C 90 16 140/70 95 11/22/23 13:15 36.7 C 80 17 130/74 96 11/22/23 12:50 36.6 C 85 17 121/84 97 11/22/23 12:29 66 16 143/100 H 95 O2 Del Method 11/23/23 11:10 Room Air 11/23/23 07:25 Room Air 11/23/23 07:00 11/23/23 02:41 Room Air 11/22/23 23:07 Room Air 11/22/23 22:00 11/22/23 20:09 Room Air 11/22/23 18:39 11/22/23 18:32 11/22/23 16:52 11/22/23 16:01 11/22/23 16:01 11/22/23 16:01 11/22/23 15:45 Room Air 11/22/23 14:45 Room Air 11/22/23 13:45 Room Air 11/22/23 13:15 Room Air 11/22/23 12:50 Room Air 11/22/23 12:29 Room Air Cardiovascular + regular rate and + regular rhythm Respiratory + respiratory effort normal Pre-Sedation Airway Assessment Smoking Status: Never smoker Hx Sleep Apnea: No Short, Thick Neck: No Thyromental Distance: > or= 3.5 Finger Breadths Oral Cavity: + Dentures Mallampati Class: III ASA: ASA3 NPO Status Date of Last Intake of Fluids: 11/23/23 Time of Last Intake of Fluids: 07:00 Date of Last Intake of Solid Food: 11/22/23 Time of Last Intake of Solid Foods: 17:00 Procedure Planning Contraindications for Sedation: none Current Medications Reviewed: Yes Notes The planned sedation has been discussed with the patient. Informed Consent was obtained. I have identified the patient, determined the appropriateness of sedation and have assessed the patient immediately prior to the procedure. All medicine(s) and interventions are by my order.
[2023-11-23] MEDS: VANCOMYCIN HCL 1000MG/20ML VIAL ONE (12:57)
[2023-11-23] MEDS: LIDOCAINE 1% LOCAL 20 ML VIAL ONE (12:57)
[2023-11-23] MEDS: BUPIVACAINE 0.25% PF 30 ML VIAL ONE (12:57)
[2023-11-23] MEDS: WATER, STERILE FOR INJ 10 ML VIAL ONE (12:58)
[2023-11-23] MEDS: ceFAZolin 330 MG/ML 1 GM VIAL ONE (12:58)
[2023-11-23] MEDS: fentaNYL citrate PF 100 MCG/2 ML VIAL ONE (13:29)
[2023-11-23] MEDS: MIDAZOLAM HCL 5 MG/ML 1 ML VIAL ONE (13:30)
[2023-11-23] MEDS ORDERED: oxyCODONE HCL IR 5 MG TAB (IMMEDIATE RELEASE) PO PRN (13:39)
--- NOTE | 2023-11-23 13:39 | Electrophysiology Report ---
Date of Service November 23, 2023 Electrophysiology Procedure Electrophysiology Procedure Report Procedure performed: Implantation of dual-chamber ICD Staff classified copy control clerk: Riccardo Rangel MD Indication: The patient is a 68-year-old gentleman with a history of a nonischemic cardiomyopathy. He was noted on outpatient monitoring to have episodes of sustained ventricular tachycardia. Based on the detected arrhythmia he was advised undergo implantation of a ICD for secondary prevention of sudden cardiac . Dual-chamber device was selected as he is currently in sinus rhythm and he may require rate support. Procedure in detail: The patient was informed of the risks benefits and alternatives to the intended procedure and she wished to proceed. He was taken to the electrophysiology suite in a fasting state. A preoperative antibiotic had been administered. The patient was monitored electrocardiographically throughout today's procedure and conscious sedation was administered per protocol. The left upper pectoral area is prepped and draped in usual sterile fashion. This area was anesthetized using subcutaneous administration of a xylocaine solution. An incision was made at this site and carried down to the prepectoralis fascia using sharp dissection. Electrocautery was also employed for dissection as well as for hemostasis. A device pocket was fashioned tissues above the pectoralis muscle. Subsequent to this maneuver the left axillary vein was accessed using modified Seldinger technique. Sheaths were placed over guidewires at this site and used to facilitate passage of the pacing leads to the respective chambers under fluoroscopic guidance. This included right atrial and right ventricular leads. Adequate sensing and threshold parameters were obtained prior to Active fixation of the leads to the endocardial surface. The proximal portion leads were then sutured the prepectoral fascia using nonabsorbable suture. The device pocket was irrigated with antibiotic solution. The leads were then attached to the device. The device and leads were then placed in the pocket and pocket was closed in 3 layers of absorbable suture. Steri-Strips and sterile dressing were applied. The device was tested noninvasively prior to conclusion the procedure. The patient tolerated procedure well there no immediate complications. Equipment used: New pulse generator: Obstetrical Anesthesiologist [employer]. Model number: [id number] serial number [id number] Right atrial lead: Obstetrical Anesthesiologist [employer]. Model number: [id number] serial number [id number] Right ventricular lead: Obstetrical Anesthesiologist [employer]. Model number: 6935M serial number [id number] Measured data: Right atrial lead: P waves measure 3.1 mV. Pacing threshold 1 V at 0.4 ms with a pacing impedance of 570 ohms Right ventricular lead: R waves measured 18 mV. Pacing threshold was 0.5 V at 0.4 ms with a pacing Viens of 551 ohms Impression: Successful implantation of dual-chamber ICD MNPG Electrophysiology codes ICD Procedure 1: ICD: 98187 Insert single or dual ICD system PG Moderate Sedation Codes Moderate Sedation Codes Procedure 1: Sedation/Anesthesia: 25134 Mod Sedation by the same physician;Init15 Min Child Age 5 & Up Procedure 2: Sedation/Anesthesia: 21555 Mod Sedation by the same physician; Ea [id number] Minutes
--- NOTE | 2023-11-23 13:39 | Post Anesthesia Assessment ---
Date of Service November 23, 2023 Post Sedation Assessment Vital Signs Temp Pulse Pulse Resp BP BP Pulse Ox 11/23/23 11:10 80 18 147/100 H 94 11/23/23 07:25 36.4 C L 79 20 133/69 98 11/23/23 07:00 73 11/23/23 02:41 36.5 C 83 18 144/88 H 95 11/22/23 23:07 36.7 C 73 18 105/74 94 11/22/23 22:00 77 11/22/23 20:09 36.4 C L 81 18 148/102 H 95 11/22/23 18:39 75 11/22/23 18:32 71 11/22/23 16:52 87 23 94 11/22/23 16:01 82 20 95 11/22/23 16:01 130/80 11/22/23 16:01 130/80 11/22/23 15:45 36.6 C 90 17 130/80 98 11/22/23 14:45 36.6 C 87 18 125/75 97 11/22/23 13:45 36.7 C 90 16 140/70 95 O2 Del Method 11/23/23 11:10 Room Air 11/23/23 07:25 Room Air 11/23/23 07:00 11/23/23 02:41 Room Air 11/22/23 23:07 Room Air 11/22/23 22:00 11/22/23 20:09 Room Air 11/22/23 18:39 11/22/23 18:32 11/22/23 16:52 11/22/23 16:01 11/22/23 16:01 11/22/23 16:01 11/22/23 15:45 Room Air 11/22/23 14:45 Room Air 11/22/23 13:45 Room Air Recovery Score Activity: Moves 4 extremities Respiration: Deep Breath/Cough Circulation: +/-20% PreAnes Value Consciousness: Arouseable (by name) Oxygen Saturation: > 92% On Room Air Discharge Sedation Level of Care: Fast Track Phase II Post Sedation Plan On clinical assessment, the patient appears to have tolerated the sedation without complications. Patient is recovering as anticipated. Patient will continue to be monitored by nursing and may be discharged when sedation discharge criteria are met per below protocol. Upon Completions of procedure up to 15 minutes continue every 5 minute vital signs and the P.A.R. score; then discharge to a Phase I or Fast Track to Phase II per the following guidelines: * Discharge Patient to appropriate Phase II area if PAR is 8 or greater or return to pre- procedure baseline. The post - procedure orders will be as directed. * If PAR score is less than 8 or not return to pre-procedure baseline then patient will follow Phase I monitoring till PAR is reached for Phase II. The Phase I may be done in procedure room or may call to secure a Phase I area. * If naloxone or flumazenil are used for reversal, hold in Phase I for continued monitoring from when last reversal dose was given for a minimum of 60 minutes or longer pending the nurse and/or physician discretion of patient condition before discharge to Phase II. Please call the Sedation Physician to re-evaluate and complete post-note for discharge to Phase II area. Do NOT discharge from procedure sedation or Phase 1 until post- sedation evaluation note is complete by procedure /sedation MD Sedation Discharge Instructions to be given to the patient at discharge to home.
[2023-11-23] MEDS: SPIRONOLACTONE 25 MG TAB PO SCH (14:47)
[2023-11-23] MEDS: ceFAZolin 1000MG 1,000 MG/7.5 ML SYR IV ONE (20:51)
[2023-11-24 06:02] LABS: Basophils # (auto) 0.08 K/uL (0.00-0.20); Basophils % (auto) 0.6 %; Eosinophils # (auto) 0.23 K/uL (0.00-0.50); Eosinophils % (auto) 1.7 %; Hematocrit (blood only) 53.3 % (42.0-52.0); Hemoglobin 17.7 g/dl (14.0-18.0); Immature Granulocytes # (auto) 0.05 K/uL (0.01-0.20); Immature Granulocytes % (auto) 0.4 %; Lymphocytes # (auto) 1.91 K/uL (1.20-3.40); Lymphocytes % (auto) 14.3 %; Mean Corpuscular Hemoglobin 26.9 pg (25.0-34.0); Mean Corpuscular Hgb Conc 33.2 g/dL (32.0-36.0); Mean Platelet Volume 10.1 fL (9.4-12.4); Monocytes # (auto) 1.08 K/uL (0.11-0.59); Monocytes % (auto) 8.1 %; Neutrophils # (auto) 10.01 K/uL (1.40-6.50); Neutrophils % (auto) 74.9 %; Platelet Count 231 K/uL (130-400); RDW Coefficient of Variation 14.6 % (11.5-14.5); RDW Standard Deviation 40.1 fL (36.4-46.3); Red Blood Count 6.58 M/uL (4.70-6.10); White Blood Count 13.36 K/ul (4.8-10.8)
[2023-11-24 06:20] LABS: Albumin Globulin Ratio 1.4 (0.9-2); Albumin Level 4.3 gm/dl (3.4-5.0); BUN Creatinine Ratio 16.7 (10-20); Bilirubin,Total 3.5 mg/dl (0.2-1.0); Calcium 9.5 mg/dl (8.6-10.3); Creatinine Clr Calc Pharmacy 66.3 ml/min; Est GFR (African American) 72.1 ml/min; Est GFR (Non-African American) 62.2 ml/min; Magnesium 2.1 mg/dl (1.7-2.4); Total Protein 7.3 gm/dl (6.0-8.3)
--- NOTE | 2023-11-24 07:27 | XRay Report ---
TWO VIEW CHEST CLINICAL HISTORY: Pacemaker implantation. FINDINGS: PA and lateral chest radiographs are compared to chest x-ray and chest CT dated 11/21/2023. A 2-lead cardiac AICD has been implanted and partially obscures the right upper chest. Leads project over the right atrial appendage and the right ventricle. The heart is enlarged. The pulmonary vascula ture is noncongested. Chronic interstitial thickening as on the previous. Mild scarring/atelectasis i s noted at the lung bases. The lungs and pleural spaces are otherwise clear. There is no pneumothora x. The skeletal structures are osteopenic. Bony thorax appears intact. IMPRESSION: 1. A 2-lead cardiac pacemaker has been implanted as above. No pneumothorax is identified post procedu re. 2. Cardiomegaly without radiographic evidence of congestive failure. 3. The lungs are clear. ACT 112: Negative or not required by law. Electronically signed by: Corbin Kirkland M.D. 11/24/2023 7:26 AM
--- NOTE | 2023-11-24 09:02 | Cardiology Progress Note ---
Date of Service November 24, 2023 Assessment & Plan Admission and Anticipated Discharge Date Admission Date: November 21, 2023 Subjective He denies any chest pain or chest pressure. He has no shortness of breath. He walked in the hallway without any significant dyspnea. He had a run of sustained ventricular tachycardia for a minute and 20 seconds. The rates about 140 bpm. It broke on its own spontaneously. He is symptomatic in the sense that he feels some fluttering when he has a sustained episode of VT. He denies any presyncope or syncope. He had no lightheadedness with his VT. He has no lower extremity edema. The shortness of breath he had when he came in is completely resolved. Results & Data Vital Signs (Past 12 Hours) Vital Signs Temp Pulse Pulse Resp BP Pulse Ox O2 Del Method 11/24/23 07:00 86 11/24/23 03:45 36.8 C 78 16 148/88 H 96 Room Air 11/23/23 23:25 37.0 C 88 18 115/82 95 Room Air He is awake alert and oriented x 3 in no acute distress HEENT: 1+ carotid upstrokes no evidence of carotid bruits Lungs: Clear to auscultation bilaterally no rales rhonchi or wheezing Heart: Regular rate and rhythm no appreciable murmurs rubs or gallops Abdomen: Soft chronically distended positive bowel sounds nontender Extremities: No clubbing cyanosis or edema Psychiatric: His affect is appropriate Impressions: 1. Acute on chronic systolic heart failure 2. Family history of TTN cardiomyopathy 3. Presumed nonischemic cardiomyopathy with ejection fraction range of 45% 4. Both inpatient and outpatient monitoring with runs of nonsustained VT up to a minute in duration. 12 beat run of nonsustained VT today at about 158 bpm (asymptomatic) 5. Diabetes mellitus type 2 6. Hyperlipidemia 7. Hypertension 8. Cath this admit with non obstructive CAD 9. S/P Dual Chamber ICD Medication upon discharge: 1. Toprol-XL 50 mg twice daily 2. Spironolactone 25 mg daily 3. Entresto mid dose twice daily 4. Lasix 40 mg daily He will need a BMP in 10 days time. Based on his renal function and volume status and blood pressure, we can adjust his Lasix as well as uptitrate his Entresto to the max dose. We will enroll him in device clinic and arrange for his incision check. In discussion with the EP service his VT detection is set at 150 bpm with a long duration of detection in order to avoid treatment as he is Relatively asymptomatic with VT in the 150s. If he continues to have VT options include a VT ablation or the use of amiodarone to suppress his ventricular arrhythmia. Based on the volume of ventricular arrhythmias he is also at risk for or worsening of his underlying cardiomyopathy. Will need a low-salt diet and daily weights. Will provide him with a coupon for 30 days of Entresto for free and reduced cost given his current income. Will see him in the office in 2 weeks.
[2023-11-24] MEDS ORDERED: METOPROLOL SUCC 25MG EXT REL TAB PO ONE (09:16)
[2023-11-24] MEDS: METOPROLOL SUCC 50MG EXT REL TAB PO SCH (10:20)
--- NOTE | 2023-11-24 16:44 | Discharge Summary ---
Date of Service November 24, 2023 Admission HPI Per Admitting Provider Patient is a 68-year-old male with past medical history of heart failure with reduced ejection fraction, hypertension, hyperlipidemia, episodes of ventricular tachycardia, and DM2 who presents to the hospital with dyspnea on exertion. Patient has been having shortness of breath on exertion for some time now and over the last week has been getting progressively worse. States that his metoprolol was changed from 25 mg twice daily to 50 mg twice daily and that every time he takes the 50 mg metoprolol he has shortness of breath and chest pain. It was recommended that patient have a cardiac catheterization by his ca rdiologist but he declined. He denies any lower extremity swelling, orthopnea, fever, chills, nausea, or vomiting. Patient currently does not have any shortness of breath at this time or chest pain. Principal Diagnosis Paroxysmal Ventricular Tachycardia Discharge Exam gen - obese, NAD mouth - MMM, no lesions, no thrush neck - no JVD heart - RRR, s1 s2, no murmur. ICD now in place lungs - CTA b/l abd - soft NT ND BS+ ext - no edema, pulses 2+ b/l Discharge Data Allergies Allergy/AdvReac Type Severity Reaction Status Date / Time No Known Allergies Allergy Unknown Verified 11/21/23 20:15 Consultations 11/21/23 20:52 ED Decision to Admit Stat 11/21/23 23:33 Consult Cardiology Routine 11/22/23 15:26 Consult Cardiology Routine Procedures Performed Operation Date: 11/23/23 12:00 Actual Procedures p ICD Insertion Single or Dual - Riccardo Rangel MD Ordered Studies 11/21/23 19:50 CT angio chest PE protocol Stat 11/22/23 10:50 CL Cath Imgs for PACS use only Routine 11/23/23 07:45 EP Lab Images for PACS ONCE Hospital Course (1) FORMAN (dyspnea on exertion): Patient with progressive SOB and FORMAN over the last few months. CXR with cardiomegaly and pulmonary vascular congestion. D-dimer elevated. CTA PE without signs of VTE. Does have cardiology f/u as he has HFmrEF and ventricular tachycardia. Previously declined cath and ICD placement. Patient notes having FORMAN and CP with metoprolol. Amenable to this now. Cath with non-ischemic cardiomyopathy. ICD placed on 5/16/24 without complication. Patient presented to the hospital for dyspnea on exertion secondary to runs of ventricular tachycardia which the patient had a known history of. While he was here, patient was given an ICD. Patient was then observed for 24 hours after placement and his symptoms improved with diuresis as well. Patient was also started on HFmrEF medications including spironolactone, Entresto, beta-blockade. Pt is to discontinue his lisinopril. Patient will have follow-up with his fire protection equipment technician, Dr. Kelly, in 2 weeks after discharge. He is to have a low-salt diet and measure his weight daily and keep this record for his appointment with Dr. Kelly. Otherwise at the day of discharge, patient was asymptomatic and felt safe to go home. (2) Heart failure with mildly reduced ejection fraction (HFmrEF): Echocardiogram on 09/28/2023 showed global hypokinesis with ejection fraction of 40-45% with at least a grade 2 diastolic dysfunction with possible grade 3. BNP of 919 in the ED. Received a spot dose of Lasix in the ED. Hold on further Lasix for now. (3) Diastolic heart failure: See above (4) Ventricular tachycardia (paroxysmal): -Seen previously during hospitalization and on event monitor. Follows with cardiology. Otherwise as above. (5) Elevated troponin I level: Trop stable at around 20. (6) Uncontrolled type 2 diabetes mellitus with hyperosmolar nonketotic hyperglycemia: Patient's home regimen held on admission. Continue BSG checks, sliding-scale insulin, hypoglycemic protocol. HbA1c 6.7%. (7) Hypercholesterolemia: Continue on atorvastatin 20 mg. LDL < 70 Total Time Total Time Spent Total Time Spent (In Minutes): 32 Discharge Plan Discharge Items Patient Disposition: Home - Self-Care Reason For Visit: DYSPNEA ON EXERTION Discharge Diagnosis: Intermittent Ventricular Tachycardia Activity: Per Instructions section Non-emergency contact: Primary Care Provider Call non-emergency contact if: you have any medication questions Follow-up/Referrals: Laura Carbone CRNP [Family Provider] - (Per office, they will contact you to schedule your hospital d/c follow up. If you do not hear from their office within a couple business days, please follow up with their office. Thank you! ) Scar Jones PA-C [Primary Care Provider] - 12/06/23 1:00 pm Diet: Low Sodium (2gm) Ambulatory Orders: Basic Metabolic Panel (Routine) Timeframe: 1 Week Location: Determined by Patient Ordered By: Cale Grijalva Attending Provider Instructions: You were seen in the hospital for concern of shortness of breath on exertion. While you are here, we observed runs of heart rate known as ventricular tachycardia which you have a history of. Because of your new shortness of breath and your abnormal heart rhythm, you were taken to the catheterization lab where no significant blockages were found. It was then decided that you should have a dual-chamber intracardiac defibrillator in place for if these runs of ventricular tachycardia were to be sustained and require an electric shock to convert them back to normal sinus rhythm. This was placed without complication. You were still having episodes of ventricular tachycardia, however, the rates were so slow that the ICD did not shock them as they were so slow and not deemed to be dangerous by the device. You are asymptomatic during these events. At this time we feel it is safe for you to be discharged home not you have the ICD and cardiology has made their medication recommendations. Cardiology medication recommendations: 1. Toprol-XL 50 mg twice daily 2. Spironolactone 25 mg daily 3. Entresto mid dose twice daily 4. Lasix 40 mg daily Stop Takin. Lisinopril 40 mg daily--> Entresto and lisinopril cannot be taken together and Entresto is the superior medication for your condition. Any medications that you do not have, will be sent to the pharmacy for you. We will need lab work 10 days after discharge to check your kidney function. Cardiology (Dr. Kelly) would like you to follow-up with our clinic in 2 weeks. They are recommending a low-salt diet consisting of less than 2 g of sodium per day. Please weigh yourself every day and log these weights to bring to your follow-up appointment. Otherwise, continue your home medications at their current dose. It has been a pleasure to be a part of your care and we wish you the best in both your health and recovery. Pending Studies at Discharge: No Stand-Alone Forms: My [facility], Smoking Cessation Medications and DC Order Prescriptions: New furosemide 40 mg Tablet 40 mg PO QAM 30 Days Qty: 30 2RF spironolactone 25 mg Tablet 25 mg PO QAM 30 Days Qty: 30 2RF Entresto 49-51 mg Tablet 1 tab PO BID 30 Days Qty: 60 2RF Continued metformin 500 mg tablet 500 mg PO BID atorvastatin 20 mg tablet 20 mg PO HS aspirin 81 mg Tablet,Delayed Release (Dr/Ec) 81 mg PO HS (DME) pen needle, diabetic [Pen Needle] 32 gauge x 5/32" needle See Rx Instructions .Route Qty: 100 2RF Rx Instructions: As directed with lantus pen daily (DME) OneTouch Verio test strips Strip See Rx Instructions .Route Qty: 100 2RF Rx Instructions: Check blood sugars 3 times daily. (DME) lancets 33 gauge misc See Rx Instructions .Route Qty: 100 2RF Rx Instructions: Check blood sugars 3 times daily. lorazepam 1 mg tablet 1 mg PO DAILY PRN (Reason: Anxiety) metoprolol succinate 50 mg tablet extended release 24 hr 50 mg PO BID Rx Instructions: pt wants held until furter notice due to possibility of causing SOB Discontinued lisinopril 40 mg tablet 40 mg PO HS Discharge Orders: Discharge Order- CHF (Routine); Ordered 11/24/23 Ordered By: Cale Lozano/Other Patient Handouts: Managing Type 2 Diabetes Admission Data Admit Date/Time: 11/21/23 21:44 Attending Provider: Riccardo Canales Admit Provider: Corbin Lopez Primary Care Provider: Scar Jones Other Providers: Jack Aguayo; Laura Carbone; Riccardo Rangel Other Interventions: Discharge Summary Assessment (RN) Last Done: 11/24/23 11:50 Supervising Physician Co-Signing Physician Notes Attending attestation Pt seen and examined in concert with Dr. Gonzalez. In agreement with the documented findings as noted in the resident documentation with any exceptions or additions as noted here. Return to baseline respiratory status and without complaint of chest pain, palpitations. On examination, S1/S2 nl RRR no MCG. CTAB. Abd NT/ND BS+ve Dyspnea on exertion in the setting of HFmrEF - cardiology consult - resolution s/p diuresis. will continue spironolactone, Entresto, metoprolol, atorvastatin Else see resident documentation as noted. Total attending physician time spent with patient's care on the day of discharge: 35 minutes.
[2023-11-25] MEDS ORDERED: FUROSEMIDE 40 MG TAB PO SCH (09:00)
--- NOTE | 2023-11-25 10:14 | Electrocardiogram Report ---
Test Reason : Blood Pressure : / mmHG Vent. Rate : 091 BPM Atrial Rate : 091 BPM P-R Int : 162 ms QRS Dur : 096 ms QT Int : 386 ms P-R-T Axes : 061 -52 103 degrees QTc Int : 474 ms Sinus rhythm with Premature atrial complexes and premature ventricular beats Left axis deviation Possible Anterior infarct , age undetermined Abnormal ECG When compared with ECG of 23-NOV-2023 05:40, No significant change Confirmed by Hossein Og ([id number]) on 11/25/2023 10:14:00 AM Referred By: REFERRED SELF Confirmed By:Hossein Og
== END 2023-11-24 12:14 | disposition home or self-care (01) | DRG 275 ==
LOC: ED 17:32 → SUATTDRO 21:44 → 2E 21:44
PROC: EPB.ICD (2023-11-23 12:00)
DX: I42.8 Other cardiomyopathies; E78.00 Pure hypercholesterolemia, unspecified; E11.00 Type 2 diabetes mellitus with hyperosmolarity without nonketotic hyperglycemic-hyperosmolar coma (NKHHC); R79.89 Other specified abnormal findings of blood chemistry; Z79.899 Other long term (current) drug therapy; I47.19 Other supraventricular tachycardia; I50.23 Acute on chronic systolic (congestive) heart failure; Z79.82 Long term (current) use of aspirin; I11.0 Hypertensive heart disease with heart failure